=== PATIENT | male | born 1960 | race African-American/Black ===

== ENCOUNTER 2016-10-11 14:38 | Emergency (ER) | payer OTHER, MEDICAID ==
[~2016-10-11] VITALS: Ht 185.4 cm; Wt 158.8 kg
[~2016-10-11 14:38] MED LIST: ALBUAER3 IN; ALLO300T2 PO; AMIT50TA3; ASP81EC PO; ATOR10TA52 PO; CARV12.516 OR; LISI-646 PO; METF-312 PO; NIFE60TA53 PO; POTA10IN PO; PRILOSEC 20 MG; TAMS0.4C36 PO; TRAM50TA2 PO
[2016-10-11 16:13] LABS: Basophils # (auto) 0.1 uL; DEFINITIVE VIEW TRANSMISSION; Eosinophils # (auto) 0.3 uL; Eosinophils % (auto) 4.5 % (0.0-7.0); Hematocrit 39.7 % (41.0-53.0); Lymphocytes # (auto) 2.1 uL; Lymphocytes % (auto) 30.9 % (10.0-50.0); Mean Corpuscular Hemoglobin 25.8 pg (28.0-32.0); Mean Corpuscular Hgb Conc. 30.3 g/dL (32.0-36.0); Mean Corpuscular Volume 84.9 fL (80.0-100.0); Mean Platelet Volume 8.4 fL (7.4-10.4); Monocytes # (auto) 0.8 uL; Monocytes % (auto) 11.8 % (0.0-12.0); Neutrophils # (auto) 3.5 uL; Neutrophils % (auto) 51.8 % (37.0-80.0); Platelet Count (auto) 282 10^3/uL (140-450); Red Cell Distribution Width 16.2 % (11.6-16.0); White Blood Cell 6.8 10^3/uL (4.4-10.8)
[2016-10-11 16:34] LABS: Albumin 3.5 g/dL (3.4-5.0); BUN/Creatinine Ratio 14.4; Bilirubin, Total 0.2 mg/dL (0.2-1.0); Calcium 8.6 mg/dL (8.5-10.1); Potassium 3.6 mmol/L (3.5-5.1); Total Protein 8.1 g/dL (6.4-8.2)
[2016-10-11 16:45] LABS: B-Type Natriuretic Peptide 143.52 pg/mL (0-100); Temperature: 22.1 C (20.0-25.0)
[2016-10-12] MEDS ORDERED: HYDROmorphone HCL 2 MG/ML VL IV ONE (00:15)
[2016-10-12] MEDS ORDERED: FUROSEMIDE 40 MG/4 ML VIAL IV ONE (00:15)
[2016-10-12 06:06] VITALS: BP 123/55
== END 2016-10-12 18:42 | disposition home or self-care (01) ==
LOC: ER 14:41
DX: I13.0 Hypertensive heart and chronic kidney disease with heart failure and stage 1 through stage 4 chronic kidney disease, or unspecified chronic kidney disease (principal); I50.9 Heart failure, unspecified; R60.0 Localized edema; I20.9 Angina pectoris, unspecified; N18.9 Chronic kidney disease, unspecified; E11.9 Type 2 diabetes mellitus without complications; F17.210 Nicotine dependence, cigarettes, uncomplicated; E78.5 Hyperlipidemia, unspecified; I25.2 Old myocardial infarction; Z98.61 Coronary angioplasty status; Z90.89 Acquired absence of other organs; Z86.73 Personal history of transient ischemic attack (TIA), and cerebral infarction without residual deficits
CPT/HCPCS: 36415; 71010; 80053; 83880; 84484; 85025; 96374; 96375; 99285; J1170; J1940; 93005

== ENCOUNTER 2017-02-09 04:14 | Inpatient (IN) | payer OTHER, MEDICAID ==
[~2017-02-09] VITALS: Ht 185.4 cm; Wt 110.4 kg
[~2017-02-09 04:14] MED LIST changes: +ALB5IS NEB; -CARV12.516 OR; +CARV3.1213 PO; +DEXT1SYP6 PO; +IPRASOL39 IN; +LEVO500T3 PO; +LISI-275 PO; -LISI-646 PO; -TRAM50TA2 PO
[2017-02-09 04:36] LABS: Basophils # (auto) 0.1 uL; Basophils % (auto) 1.4 % (0.0-2.0); DEFINITIVE VIEW TRANSMISSION; Eosinophils # (auto) 0.3 uL; Eosinophils % (auto) 3.7 % (0.0-7.0); Hematocrit 34.6 % (41.0-53.0); Hemoglobin 10.9 g/dL (13.5-17.5); Lymphocytes # (auto) 2.5 uL; Lymphocytes % (auto) 30.8 % (10.0-50.0); Mean Corpuscular Hemoglobin 26.5 pg (28.0-32.0); Mean Corpuscular Hgb Conc. 31.6 g/dL (32.0-36.0); Mean Corpuscular Volume 83.9 fL (80.0-100.0); Mean Platelet Volume 8.9 fL (7.4-10.4); Monocytes # (auto) 0.8 uL; Monocytes % (auto) 10.1 % (0.0-12.0); Neutrophils # (auto) 4.3 uL; Platelet Count (auto) 297 10^3/uL (140-450); Red Cell Distribution Width 17.9 % (11.6-16.0)
[2017-02-09] MEDS ORDERED: methylPREDNISolone SOD SUCC 125 MG/2 ML VL IV ONE (05:15)
[2017-02-09] MEDS ORDERED: IPRATROPIUM BROM 0.5 MG/2.5ML INH SOL NEB ONE (05:15)
[2017-02-09] MEDS ORDERED: FUROSEMIDE 40 MG/4 ML VIAL IV ONE (05:15)
[2017-02-09] MEDS ORDERED: ALBUTEROL SULF 2.5 MG/0.5ML(0.5%) NEB SOLN NEB ONE (05:15)
[2017-02-09] MEDS ORDERED: ASPirin 81 mg TAB PO ONE (05:15)
[2017-02-09] MEDS ORDERED: IOHEXOL 350 MG/ML 100ML IJ ONE (05:16)
[2017-02-09 05:26] LABS: Albumin 2.8 g/dL (3.4-5.0); BUN/Creatinine Ratio 14.4; Calcium 8.3 mg/dL (8.5-10.1); Magnesium 1.7 mg/dL (1.6-2.6); Potassium 3.9 mmol/L (3.5-5.1)
[2017-02-09 05:34] LABS: Bilirubin, Total 0.2 mg/dL (0.2-1.0); Total Protein 7.4 g/dL (6.4-8.2)
[2017-02-09 05:36] LABS: B-Type Natriuretic Peptide 624.89 pg/mL (0-100); Temperature: 22.5 C (20.0-25.0)
[2017-02-09] MEDS ORDERED: ENOXAPARIN SOD 150 MG/1 ML SYRINGE SC ONE (05:45)
[2017-02-09 06:37] LABS: Urine Bilirubin Negative (Negative); Urine Blood Negative /uL (Negative); Urine Color Yellow (Yellow); Urine Glucose Normal (Normal); Urine Ketone Negative (Negative); Urine Nitrite Negative (Negative); Urine RBC <1 /hpf (0 - 3); Urine Urobilinogen Normal (Negative)
[2017-02-09] MEDS ORDERED: ONDANSETRON HCL 4 MG/2 ML VIAL IV ONE (06:45)
[2017-02-09] MEDS ORDERED: MORPHINE SULFATE 4 MG/ML SYRG IV ONE (06:45)
[2017-02-09] MEDS ORDERED: ZOLPIDEM TARTRATE 5 MG TAB PO PRN (09:30)
[2017-02-09] MEDS ORDERED: ACETAMINOPHEN 325 MG TAB PO PRN (09:30)
[2017-02-09] MEDS ORDERED: NITROGLYCERIN 0.4 MG SL TAB SL PRN ×2 (09:30)
[2017-02-09] MEDS ORDERED: LORazepam 0.5 MG TAB PO PRN (09:30)
[2017-02-09] MEDS ORDERED: MORPHINE SULF INJ 2 MG/ML SYRINGE 1ML IV PRN ×2 (09:30)
[2017-02-09] MEDS ORDERED: ONDANSETRON HCL 4 MG/2 ML VIAL IV PRN (09:30)
[2017-02-09] MEDS ORDERED: ALUM & MAG HYDROX-SIMETH LIQ(MAALOX) 30 ML PO PRN (09:30)
[2017-02-09] MEDS ORDERED: guaiFENesin-DEXTROMETHORPHAN 5ML SYR PO PRN (09:30)
[2017-02-09] MEDS ORDERED: DEXTROSE (50%) 50ML SYRG IV PRN (09:30)
[2017-02-09 09:41] VITALS: BP 136/73
[2017-02-09] MEDS ORDERED: LISINOPRIL 5 MG TAB PO SCH (10:00)
[2017-02-09] MEDS ORDERED: CARVEDILOL 3.125 MG TAB PO SCH ×2 (10:00→22:00)
[2017-02-09] MEDS ORDERED: NIFEdipine ER 30 MG TAB PO SCH (10:00)
[2017-02-09] MEDS ORDERED: HCTZ 25 MG TAB PO SCH (10:00)
[2017-02-09] MEDS: DOCUSATE SOD 100 MG CAP PO SCH (10:17)
[2017-02-09] MEDS: ALLOPURINOL 300 MG TAB PO SCH (10:18)
[2017-02-09] MEDS: POTASSIUM CHL 10 Meq TABLET PO SCH ×2 (10:18→22:04)
[2017-02-09] MEDS: CLOPIDOGREL BISULFATE 75 MG TAB PO SCH (10:18)
[2017-02-09] MEDS: InsuLIN REG 1unit/0.01ml Soln (100units/ml) SC SCH ×3 (11:30→23:47)
[2017-02-09] MEDS: ACCU-CHEK COMFORT CURVE STRIP VI SCH ×3 (11:30→23:47)
[2017-02-09] MEDS: IPRATROPIUM BROM 0.5 MG/2.5ML INH SOL NEB SCH ×2 (12:00→19:11)
[2017-02-09] MEDS: ALBUTEROL SULF 2.5 MG/0.5ML(0.5%) NEB SOLN NEB SCH ×2 (12:00→19:12)
[2017-02-09] MEDS ORDERED: FURO40TA4 PO (13:00)
[2017-02-09] MEDS: SODIUM CHLOR 0.9% PF (SALINE LOCK) 10ML VIAL IV SCH ×2 (14:00→22:05)
[2017-02-09 14:28] VITALS: BP 132/86
[2017-02-09] MEDS: FUROSEMIDE 40 MG/4 ML VIAL IV SCH (17:08)
[2017-02-09 17:30] VITALS: BP 106/77
[2017-02-09] MEDS ORDERED: TAMSULOSIN HYDROCHLORIDE 0.4 MG CAP PO SCH (18:00)
[2017-02-09 20:00] VITALS: BP 132/76
[2017-02-09 22:00] VITALS: BP 132/76
[2017-02-09] MEDS ORDERED: AMITRIPTYLINE HCL 25 MG TAB PO SCH (22:00)
[2017-02-09] MEDS ORDERED: ATORVASTATIN 20 MG TAB PO SCH (22:00)
[2017-02-09] MEDS ORDERED: HYDROcodone-ACET 7.5/325MG TAB PO PRN (22:45)
[2017-02-10] MEDS: IPRATROPIUM BROM 0.5 MG/2.5ML INH SOL NEB SCH ×3 (00:33→12:19)
[2017-02-10] MEDS: ALBUTEROL SULF 2.5 MG/0.5ML(0.5%) NEB SOLN NEB SCH ×3 (00:33→12:19)
[2017-02-10] MEDS ORDERED: ALUM & MAG HYDROX-SIMETH LIQ(MAALOX) 30 ML ONE (01:13)
[2017-02-10] MEDS ORDERED: ALUM & MAG HYDROX-SIMETH LIQ(MAALOX) 30 ML PO PRN (01:15)
[2017-02-10 05:30] VITALS: BP 105/70
[2017-02-10] MEDS: InsuLIN REG 1unit/0.01ml Soln (100units/ml) SC SCH ×2 (06:16→12:32)
[2017-02-10] MEDS: ACCU-CHEK COMFORT CURVE STRIP VI SCH ×2 (06:16→12:33)
[2017-02-10] MEDS: FUROSEMIDE 40 MG/4 ML VIAL IV SCH (06:18)
[2017-02-10] MEDS: SODIUM CHLOR 0.9% PF (SALINE LOCK) 10ML VIAL IV SCH (06:18)
[2017-02-10 06:33] LABS: Basophils # (auto) 0 uL; Basophils % (auto) 0.2 % (0.0-2.0); DEFINITIVE VIEW TRANSMISSION; Eosinophils # (auto) 0 uL; Hematocrit 32.7 % (41.0-53.0); Hemoglobin 10.2 g/dL (13.5-17.5); Lymphocytes # (auto) 1.6 uL; Lymphocytes % (auto) 14.1 % (10.0-50.0); Mean Corpuscular Hemoglobin 26.3 pg (28.0-32.0); Mean Corpuscular Hgb Conc. 31.3 g/dL (32.0-36.0); Mean Corpuscular Volume 84.1 fL (80.0-100.0); Mean Platelet Volume 8.9 fL (7.4-10.4); Monocytes % (auto) 9.2 % (0.0-12.0); Neutrophils # (auto) 8.6 uL; Neutrophils % (auto) 76.5 % (37.0-80.0); Platelet Count (auto) 298 10^3/uL (140-450); Red Cell Distribution Width 17.9 % (11.6-16.0); White Blood Cell 11.2 10^3/uL (4.4-10.8)
[2017-02-10 06:55] LABS: Albumin 3.1 g/dL (3.4-5.0); BUN/Creatinine Ratio 24.5; Bilirubin, Total 0.4 mg/dL (0.2-1.0); Calcium 8.6 mg/dL (8.5-10.1); Magnesium 2.2 mg/dL (1.6-2.6); Potassium 4.5 mmol/L (3.5-5.1); Total Protein 7.5 g/dL (6.4-8.2)
[2017-02-10 08:00] VITALS: BP 105/70
[2017-02-10 09:00] VITALS: BP 99/74
[2017-02-10] MEDS ORDERED: ASPirin-EC 81 mg tab PO SCH (10:00)
[2017-02-10] MEDS: DOCUSATE SOD 100 MG CAP PO SCH (10:14)
[2017-02-10] MEDS: ALLOPURINOL 300 MG TAB PO SCH (10:15)
[2017-02-10] MEDS: CLOPIDOGREL BISULFATE 75 MG TAB PO SCH (10:15)
[2017-02-10 13:00] VITALS: BP 94/66
[2017-02-10 13:09] VITALS: BP 94/66
[2017-02-10 13:59] LABS: Allen Test Yes; Base Excess 4.7 mmol/L (-2.0-2.0); Blood 02Sat 92.7 % (96-100); Blood COHb 0.1 % (0.5-1.5); Blood MetHb 0.3 % (0.0-1.5); HCO3 32.6 mmol/L (22-26.0); HHb 7.3 % (0.0-5.0); MODE NASAL CANNULA; O2Hb 92.3 % (94.0-97.0); PCO2 66.2 mmHg (35.0-45.0); PCO2(T) 66.2 mmHg (35.0-45.0); PO2 78.1 mmHg (80.0-100.0); PO2(T) 78.1 mmHg (80.0-100.0); Room 0220T; Sample Type Arterial
== END 2017-02-10 15:40 | disposition home health service (06) | DRG 291 ==
LOC: ER 04:14 → TELE 04:15 → TELE-E-ADS 12:21 → TELE-CENTR 14:31
PROVIDERS: ADMIT Internal Medicine; ATTEND Internal Medicine
DX: I13.0 Hypertensive heart and chronic kidney disease with heart failure and stage 1 through stage 4 chronic kidney disease, or unspecified chronic kidney disease (principal); I50.43 Acute on chronic combined systolic (congestive) and diastolic (congestive) heart failure; E43 Unspecified severe protein-calorie malnutrition; J98.11 Atelectasis; I24.9 Acute ischemic heart disease, unspecified; I42.9 Cardiomyopathy, unspecified; D63.8 Anemia in other chronic diseases classified elsewhere; I25.118 Atherosclerotic heart disease of native coronary artery with other forms of angina pectoris; J44.9 Chronic obstructive pulmonary disease, unspecified; E78.5 Hyperlipidemia, unspecified; E11.22 Type 2 diabetes mellitus with diabetic chronic kidney disease; E66.01 Morbid (severe) obesity due to excess calories; F17.210 Nicotine dependence, cigarettes, uncomplicated; I25.5 Ischemic cardiomyopathy; N40.0 Benign prostatic hyperplasia without lower urinary tract symptoms; R78.89 Finding of other specified substances, not normally found in blood; I35.0 Nonrheumatic aortic (valve) stenosis; E83.51 Hypocalcemia; M10.9 Gout, unspecified; M19.90 Unspecified osteoarthritis, unspecified site; I27.2 Other secondary pulmonary hypertension; I25.2 Old myocardial infarction; Z98.61 Coronary angioplasty status; Z83.3 Family history of diabetes mellitus; Z91.14 Patient's other noncompliance with medication regimen; Z68.32 Body mass index [BMI] 32.0-32.9, adult; Z90.89 Acquired absence of other organs
CPT/HCPCS: 36415; 36600; 71010; 71260; 80053; 80061; 81001; 82805; 82962; 83036; 83735; 83880; 84484; 85025; 85379; 93005; 93970; 94640; 96374; 96375; 99291; J1815; J2405

== ENCOUNTER 2018-02-16 00:16 | Inpatient (IN) | payer OTHER, MEDICAID ==
[~2018-02-16] VITALS: Ht 185.4 cm; Wt 145.0 kg
[~2018-02-16 00:16] MED LIST changes: +CAR3125T PO; -CARV3.1213 PO; -DEXT1SYP6 PO; +FURO40TA4 PO; -LEVO500T3 PO; -METF-312 PO
[2018-02-16 00:56] LABS: Basophils # (auto) 0.1 uL; Basophils % (auto) 0.8 % (0.0-2.0); Eosinophils # (auto) 0.3 uL; Eosinophils % (auto) 4.1 % (0.0-7.0); Hematocrit 39.1 % (41.0-53.0); Hemoglobin 12.8 g/dL (13.5-17.5); Lymphocytes # (auto) 2.8 uL; Lymphocytes % (auto) 35.9 % (10.0-50.0); Mean Corpuscular Hemoglobin 27.8 pg (28.0-32.0); Mean Corpuscular Hgb Conc. 32.7 g/dL (32.0-36.0); Mean Corpuscular Volume 84.9 fL (80.0-100.0); Monocytes # (auto) 0.9 uL; Monocytes % (auto) 10.9 % (0.0-12.0); Neutrophils # (auto) 3.8 uL; Neutrophils % (auto) 48.3 % (37.0-80.0); Nucleated Red Blood Cells % 0.1 %; Platelet Count (auto) 252 10^3/uL (140-450); Red Blood Cells 4.61 10^6/uL (4.5-5.90); Red Cell Distribution Width 15.9 % (11.8-14.3); White Blood Cell 7.9 10^3/uL (4.4-10.8)
[2018-02-16 01:08] LABS: Alanine Aminotransferase 24 U/L (16-61); Amylase 38 U/L (25-115); Anion Gap 9 (5-15); Aspartate Aminotransferase 16 U/L (15-37); BUN/Creatinine Ratio 11.2; Blood Urea Nitrogen 11 mg/dL (7-18); Calcium 8.9 mg/dL (8.5-10.1); Carbon Dioxide 31 mmol/L (21-32); Chloride 102 mmol/L (98-107); GFR African American 101 mL/min; GFR Non-African American 83 mL/min; Glucose 112 mg/dL (74-106); Lipase 78 U/L (73-393); Potassium 3.6 mmol/L (3.5-5.1); Sodium 142 mmol/L (136-145)
[2018-02-16 01:13] LABS: Alkaline Phosphatase 84 U/L (45-117); Bilirubin, Total 0.2 mg/dL (0.2-1.0); Total Protein 7.8 g/dL (6.4-8.2)
[2018-02-16] MEDS ORDERED: SODIUM CHLORIDE 0.9% 1,000 ML IV ONE (07:07)
[2018-02-16] MEDS ORDERED: METOCLOPRAMIDE HCL 5MG/ml INJ 2ml VIAL IV ONE (07:15)
[2018-02-16] MEDS ORDERED: NALBUPHINE HCL 10 MG/1ml INJECTION IV ONE (07:15)
[2018-02-16] MEDS ORDERED: NITROGLYCERIN 0.4 MG SL TAB SL PRN (11:00)
[2018-02-16] MEDS ORDERED: PANTOPRAZOLE 40 MG/10 ML VIAL IV ONE (11:00)
[2018-02-16] MEDS ORDERED: ALBUTEROL SULF 2.5 MG/0.5ML(0.5%) NEB SOLN NEB PRN (11:00)
[2018-02-16] MEDS ORDERED: DEXTROSE (50%) 50ML SYRG IV PRN (11:00)
[2018-02-16] MEDS ORDERED: LORazepam 0.5 MG TAB PO PRN (11:00)
[2018-02-16] MEDS ORDERED: TEMAZEPAM 15 MG CAP PO PRN (11:00)
[2018-02-16] MEDS: InsuLIN REG 1unit/0.01ml Soln (100units/ml) SC SCH ×2 (12:00→17:33)
[2018-02-16] MEDS: ACCU-CHEK COMFORT CURVE STRIP VI SCH ×2 (12:05→17:34)
[2018-02-16] MEDS: IPRATROPIUM BROM 0.5 MG/2.5ML INH SOL NEB SCH ×2 (12:05→20:09)
[2018-02-16] MEDS: ALBUTEROL SULF 2.5 MG/0.5ML(0.5%) NEB SOLN NEB SCH ×2 (12:05→20:10)
[2018-02-16 12:14] VITALS: BP 143/100
[2018-02-16] MEDS ORDERED: AMITRIPTYLINE HCL 25 MG TAB PO ONE (12:15)
[2018-02-16] MEDS ORDERED: CARVEDILOL 3.125 MG TAB PO ONE (12:15)
[2018-02-16] MEDS ORDERED: NIFEdipine ER 30 MG TAB PO ONE (12:15)
[2018-02-16] MEDS ORDERED: ALLOPURINOL 300 MG TAB PO ONE (12:15)
[2018-02-16] MEDS ORDERED: LISINOPRIL 5 MG TAB PO ONE (12:15)
[2018-02-16] MEDS ORDERED: cefTRIAXone 1GM/10ml IVPUSH 10 ML IV ONE (12:30)
[2018-02-16 12:44] LABS: Urine Bacteria NONE SEEN /hpf (None Seen); Urine Blood Negative /uL (Negative); Urine Mucus FEW (None Seen); Urine WBC 1 /hpf (0 - 3)
[2018-02-16] MEDS ORDERED: GASTROGRAFIN 120 ML SOL ONE (13:23)
[2018-02-16 15:00] VITALS: BP 107/70
[2018-02-16] MEDS: PROMETHAZINE HCL 25 MG/ML 1ML IV PRN ×2 (16:28→20:29)
[2018-02-16] MEDS: MORPHINE SULFATE 8mg/ml INJ SDV IV PRN ×2 (16:28→20:29)
[2018-02-16] MEDS: SODIUM CHLORIDE 0.9% 1,000 ML IV SCH (16:45)
[2018-02-16 16:50] VITALS: BP 107/70
[2018-02-16] MEDS: metroNIDAZOLE 500MG/100ML 100 ML IV SCH (17:31)
[2018-02-16] MEDS: MORPHINE SULF INJ 2 MG/ML SYRINGE 1ML IV PRN (20:28)
[2018-02-16 21:35] VITALS: BP 117/75
[2018-02-16] MEDS: CARVEDILOL 3.125 MG TAB PO SCH (21:49)
[2018-02-16] MEDS: ACETAMINOPHEN 500 MG TAB PO PRN (21:50)
[2018-02-16] MEDS: HYDROcodone-ACET 5/325MG TAB PO PRN (21:50)
[2018-02-16] MEDS ORDERED: ATORVASTATIN 20 MG TAB PO SCH (22:00)
[2018-02-16] MEDS ORDERED: TAMSULOSIN HYDROCHLORIDE 0.4 MG CAP PO SCH (22:00)
[2018-02-17] MEDS: metroNIDAZOLE 500MG/100ML 100 ML IV SCH ×3 (00:11→12:00)
[2018-02-17] MEDS: ACCU-CHEK COMFORT CURVE STRIP VI SCH ×4 (00:12→18:16)
[2018-02-17] MEDS: MORPHINE SULF INJ 2 MG/ML SYRINGE 1ML IV PRN (00:39)
[2018-02-17] MEDS: PROMETHAZINE HCL 25 MG/ML 1ML IV PRN ×2 (00:40→05:38)
[2018-02-17] MEDS: ALBUTEROL SULF 2.5 MG/0.5ML(0.5%) NEB SOLN NEB SCH ×3 (01:00→11:55)
[2018-02-17] MEDS: IPRATROPIUM BROM 0.5 MG/2.5ML INH SOL NEB SCH ×3 (01:00→11:55)
[2018-02-17] MEDS: SODIUM CHLORIDE 0.9% 1,000 ML IV SCH ×2 (02:45→12:45)
[2018-02-17] MEDS: HYDROcodone-ACET 5/325MG TAB PO PRN (03:20)
[2018-02-17] MEDS: ACETAMINOPHEN 500 MG TAB PO PRN (03:21)
[2018-02-17 05:11] VITALS: BP 113/74
[2018-02-17 05:12] VITALS: BP 99/72
[2018-02-17] MEDS: InsuLIN REG 1unit/0.01ml Soln (100units/ml) SC SCH ×4 (05:26→18:00)
[2018-02-17] MEDS: MORPHINE SULFATE 8mg/ml INJ SDV IV PRN (05:41)
[2018-02-17] MEDS: CARVEDILOL 3.125 MG TAB PO SCH (08:51)
[2018-02-17] MEDS ORDERED: cefTRIAXone 1GM/10ml IVPUSH 10 ML IV SCH (09:00)
[2018-02-17 09:15] VITALS: BP 105/72
[2018-02-17] MEDS ORDERED: AMITRIPTYLINE HCL 25 MG TAB PO SCH (10:00)
[2018-02-17] MEDS ORDERED: LISINOPRIL 5 MG TAB PO SCH (10:00)
[2018-02-17] MEDS ORDERED: PANTOPRAZOLE 40 MG TAB PO SCH (10:00)
[2018-02-17] MEDS ORDERED: NIFEdipine ER 30 MG TAB PO SCH (10:00)
[2018-02-17] MEDS ORDERED: ALLOPURINOL 300 MG TAB PO SCH (10:00)
[2018-02-17 13:03] VITALS: BP 95/58
[2018-02-17 15:43] VITALS: BP 105/72
[2018-02-17 17:38] VITALS: BP 109/87
== END 2018-02-17 18:45 | disposition home health service (06) | DRG 190 ==
LOC: ER 00:18 → TELE 00:19 → EAST 15:07
PROVIDERS: ADMIT Internal Medicine; ATTEND Internal Medicine
DX: J44.0 Chronic obstructive pulmonary disease with (acute) lower respiratory infection (principal); I50.23 Acute on chronic systolic (congestive) heart failure; K42.0 Umbilical hernia with obstruction, without gangrene; E44.1 Mild protein-calorie malnutrition; I42.9 Cardiomyopathy, unspecified; K52.9 Noninfective gastroenteritis and colitis, unspecified; E11.9 Type 2 diabetes mellitus without complications; E78.5 Hyperlipidemia, unspecified; I25.10 Atherosclerotic heart disease of native coronary artery without angina pectoris; D63.8 Anemia in other chronic diseases classified elsewhere; J44.9 Chronic obstructive pulmonary disease, unspecified; G89.29 Other chronic pain; M10.9 Gout, unspecified; M54.9 Dorsalgia, unspecified; J20.9 Acute bronchitis, unspecified; E66.01 Morbid (severe) obesity due to excess calories; F17.210 Nicotine dependence, cigarettes, uncomplicated; I11.0 Hypertensive heart disease with heart failure; I71.4 Abdominal aortic aneurysm, without rupture; K44.9 Diaphragmatic hernia without obstruction or gangrene; K59.00 Constipation, unspecified; K76.0 Fatty (change of) liver, not elsewhere classified; N40.0 Benign prostatic hyperplasia without lower urinary tract symptoms; Z82.3 Family history of stroke; Z82.49 Family history of ischemic heart disease and other diseases of the circulatory system; I25.2 Old myocardial infarction; Z83.3 Family history of diabetes mellitus; Z95.5 Presence of coronary angioplasty implant and graft; Z79.899 Other long term (current) drug therapy; Z79.82 Long term (current) use of aspirin
CPT/HCPCS: 36415; 71045; 74176; 74250; 80053; 81001; 82150; 82962; 83036; 83690; 83880; 84484; 85025; 85652; 86141; 93005; 94640; 96361; 96374; 96375; C9113; J3490

== ENCOUNTER 2018-03-14 10:03 | Emergency (ER) | payer OTHER, MEDICAID ==
[~2018-03-14] VITALS: Ht 185.4 cm; Wt 147.4 kg
[2018-03-14] MEDS ORDERED: cloNIDine HCL 0.1 MG TAB PO ONE (10:45)
[2018-03-14 11:09] LABS: INR 0.99 (0.9-1.15); Partial Thromboplastin Time 25.8 sec (23.78-33.04); Prothrombin Time 10.6 sec (9.27-12.13)
[2018-03-14 11:11] LABS: Albumin 3.2 g/dL (3.4-5.0); BUN/Creatinine Ratio 13.2; Bilirubin, Total 0.5 mg/dL (0.2-1.0); Calcium 8.3 mg/dL (8.5-10.1); Magnesium 2.3 mg/dL (1.6-2.6); Potassium 3.8 mmol/L (3.5-5.1); Total Protein 7.5 g/dL (6.4-8.2)
[2018-03-14 11:17] LABS: Basophils # (auto) 0.1 uL; Basophils % (auto) 0.7 % (0.0-2.0); Eosinophils # (auto) 0.4 uL; Hematocrit 39.4 % (41.0-53.0); Hemoglobin 12.6 g/dL (13.5-17.5); Lymphocytes % (auto) 22.6 % (10.0-50.0); Mean Corpuscular Hemoglobin 27.7 pg (28.0-32.0); Mean Corpuscular Hgb Conc. 32.1 g/dL (32.0-36.0); Mean Corpuscular Volume 86.4 fL (80.0-100.0); Monocytes # (auto) 0.8 uL; Monocytes % (auto) 9.2 % (0.0-12.0); Neutrophils # (auto) 5.5 uL; Neutrophils % (auto) 63.5 % (37.0-80.0); Nucleated Red Blood Cells % 0.2 %; Platelet Count (auto) 249 10^3/uL (140-450); Red Blood Cells 4.56 10^6/uL (4.5-5.90); White Blood Cell 8.7 10^3/uL (4.4-10.8)
[2018-03-14] MEDS ORDERED: FUROSEMIDE 40 MG/4 ML VIAL IV ONE (13:15)
[2018-03-14] MEDS ORDERED: FUROSEMIDE 40 MG TAB PO ONE (14:00)
[2018-03-14 14:38] VITALS: BP 169/98
== END 2018-03-14 14:42 | disposition home or self-care (01) ==
LOC: ER 10:03
DX: I13.0 Hypertensive heart and chronic kidney disease with heart failure and stage 1 through stage 4 chronic kidney disease, or unspecified chronic kidney disease (principal); I50.9 Heart failure, unspecified; N18.9 Chronic kidney disease, unspecified; J44.9 Chronic obstructive pulmonary disease, unspecified; E78.5 Hyperlipidemia, unspecified; I25.2 Old myocardial infarction; M10.9 Gout, unspecified; I25.10 Atherosclerotic heart disease of native coronary artery without angina pectoris; F17.210 Nicotine dependence, cigarettes, uncomplicated
CPT/HCPCS: 36415; 71046; 80053; 83735; 84484; 85025; 85610; 85730; 93005; 93970; 94761

== ENCOUNTER 2018-06-21 10:54 | Inpatient (IN) | payer OTHER, MEDICAID ==
[~2018-06-21] VITALS: Ht 182.9 cm; Wt 150.1 kg
[2018-06-21] MEDS ORDERED: FUROSEMIDE 40 MG/4 ML VIAL IV ONE (11:30)
[2018-06-21 11:48] LABS: Basophils # (auto) 0.1 uL; Basophils % (auto) 0.9 % (0.0-2.0); Eosinophils # (auto) 0.2 uL; Eosinophils % (auto) 3.7 % (0.0-7.0); Hematocrit 38.8 % (41.0-53.0); Hemoglobin 12.4 g/dL (13.5-17.5); Lymphocytes # (auto) 1.9 uL; Lymphocytes % (auto) 29.2 % (10.0-50.0); Mean Corpuscular Hemoglobin 27.2 pg (28.0-32.0); Mean Corpuscular Hgb Conc. 31.9 g/dL (32.0-36.0); Mean Corpuscular Volume 85.3 fL (80.0-100.0); Monocytes # (auto) 0.9 uL; Monocytes % (auto) 14.3 % (0.0-12.0); Neutrophils # (auto) 3.4 uL; Neutrophils % (auto) 51.9 % (37.0-80.0); Nucleated Red Blood Cells % 0.1 %; Platelet Count (auto) 240 10^3/uL (140-450); Red Blood Cells 4.55 10^6/uL (4.5-5.90); Red Cell Distribution Width 17.2 % (11.8-14.3); White Blood Cell 6.5 10^3/uL (4.4-10.8)
[2018-06-21 11:55] LABS: Urine Bacteria NONE SEEN /hpf (None Seen); Urine Blood Negative /uL (Negative); Urine Specific Gravity 1.019 (1.001-1.035); Urine WBC <1 /hpf (0 - 3)
[2018-06-21 12:05] LABS: Albumin 3.1 g/dL (3.4-5.0); BUN/Creatinine Ratio 18.7; Calcium 8.1 mg/dL (8.5-10.1); Magnesium 1.8 mg/dL (1.6-2.6); Potassium 4.1 mmol/L (3.5-5.1)
[2018-06-21 12:10] LABS: Bilirubin, Total 0.2 mg/dL (0.2-1.0); Total Protein 7.7 g/dL (6.4-8.2)
[2018-06-21] MEDS ORDERED: ONDANSETRON HCL 4 MG/2 ML VIAL IV PRN (14:15)
[2018-06-21] MEDS ORDERED: MORPHINE SULFATE 4 MG/ML SYR/VIAL IV PRN (14:15)
[2018-06-21] MEDS ORDERED: HYDROcodone-ACET 5/325MG TAB PO PRN (14:15)
[2018-06-21] MEDS ORDERED: NITROGLYCERIN 0.4 MG SL TAB SL PRN (14:15)
[2018-06-21] MEDS ORDERED: DEXTROSE (50%) 50ML SYRG IV PRN (14:15)
[2018-06-21 15:24] VITALS: BP 133/90
[2018-06-21 16:22] VITALS: BP 91/63
[2018-06-21] MEDS: InsuLIN REG 1unit/0.01ml Soln (100units/ml) SC SCH ×2 (17:00→21:59)
[2018-06-21 17:07] VITALS: BP 91/63
[2018-06-21] MEDS: TAMSULOSIN HYDROCHLORIDE 0.4 MG CAP PO SCH (17:30)
[2018-06-21] MEDS: ACCU-CHEK COMFORT CURVE STRIP VI SCH ×2 (17:30→21:59)
[2018-06-21] MEDS: IPRATROPIUM BROM 0.5 MG/2.5ML INH SOL NEB SCH (19:55)
[2018-06-21] MEDS: ALBUTEROL SULF 2.5 MG/0.5ML(0.5%) NEB SOLN NEB SCH (19:55)
[2018-06-21 21:51] VITALS: BP 101/73
[2018-06-21] MEDS: CARVEDILOL 3.125 MG TAB PO SCH (21:54)
[2018-06-21] MEDS: FAMOTIDINE 20 MG TAB PO SCH (21:55)
[2018-06-21] MEDS ORDERED: AMITRIPTYLINE HCL 25 MG TAB PO SCH (22:00)
[2018-06-21] MEDS ORDERED: ATORVASTATIN 20 MG TAB PO SCH (22:00)
[2018-06-22 04:41] VITALS: BP 98/56
[2018-06-22] MEDS: IPRATROPIUM BROM 0.5 MG/2.5ML INH SOL NEB SCH ×2 (05:58→12:44)
[2018-06-22] MEDS: ALBUTEROL SULF 2.5 MG/0.5ML(0.5%) NEB SOLN NEB SCH ×2 (05:58→12:44)
[2018-06-22] MEDS: InsuLIN REG 1unit/0.01ml Soln (100units/ml) SC SCH ×3 (06:24→17:00)
[2018-06-22] MEDS: ACCU-CHEK COMFORT CURVE STRIP VI SCH ×3 (06:24→17:00)
[2018-06-22 06:31] LABS: Calcium 8.6 mg/dL (8.5-10.1); Potassium 3.9 mmol/L (3.5-5.1)
[2018-06-22 08:04] VITALS: BP 108/71
[2018-06-22] MEDS ORDERED: LISINOPRIL 10 MG TAB PO SCH (10:00)
[2018-06-22] MEDS ORDERED: FUROSEMIDE 40 MG/4 ML VIAL IV SCH (10:00)
[2018-06-22] MEDS ORDERED: POTASSIUM CHL 20 Meq TABLET PO SCH (10:00)
[2018-06-22] MEDS ORDERED: ASPirin 81 mg TAB PO SCH (10:00)
[2018-06-22] MEDS ORDERED: ALLOPURINOL 300 MG TAB PO SCH (10:00)
[2018-06-22] MEDS: CARVEDILOL 3.125 MG TAB PO SCH (10:45)
[2018-06-22] MEDS: FAMOTIDINE 20 MG TAB PO SCH (10:46)
[2018-06-22 12:27] VITALS: BP 106/65
[2018-06-22] MEDS ORDERED: FURO40TA4 PO ×2 (15:09→15:17)
[2018-06-22] MEDS ORDERED: POTA10TA79 PO ×2 (15:09→15:17)
[2018-06-22] MEDS ORDERED: FURO40TA PO (15:17)
[2018-06-22 15:36] VITALS: BP 108/63
[2018-06-22 16:57] VITALS: BP 103/71
[2018-06-22 17:01] VITALS: BP 108/61
[2018-06-22] MEDS ORDERED: FUROSEMIDE 20 MG TAB PO SCH (18:00)
[2018-06-22] MEDS: TAMSULOSIN HYDROCHLORIDE 0.4 MG CAP PO SCH (18:00)
== END 2018-06-22 18:10 | disposition home or self-care (01) | DRG 291 ==
LOC: ER 10:54 → EDBD 10:54 → TELE 10:55 → TELE-WESTW 16:08
PROVIDERS: ADMIT Internal Medicine; ATTEND Internal Medicine
DX: I13.0 Hypertensive heart and chronic kidney disease with heart failure and stage 1 through stage 4 chronic kidney disease, or unspecified chronic kidney disease (principal); I50.43 Acute on chronic combined systolic (congestive) and diastolic (congestive) heart failure; J96.10 Chronic respiratory failure, unspecified whether with hypoxia or hypercapnia; Z68.41 Body mass index [BMI] 40.0-44.9, adult; E11.9 Type 2 diabetes mellitus without complications; M10.9 Gout, unspecified; E78.5 Hyperlipidemia, unspecified; J44.9 Chronic obstructive pulmonary disease, unspecified; E66.01 Morbid (severe) obesity due to excess calories; F17.210 Nicotine dependence, cigarettes, uncomplicated; I25.10 Atherosclerotic heart disease of native coronary artery without angina pectoris; N18.9 Chronic kidney disease, unspecified; E11.22 Type 2 diabetes mellitus with diabetic chronic kidney disease; Z95.5 Presence of coronary angioplasty implant and graft; Z79.899 Other long term (current) drug therapy; I25.2 Old myocardial infarction
CPT/HCPCS: 36415; 71045; 80048; 80053; 81001; 82962; 83735; 83880; 84484; 85025; 93306; 94640; 96374

== ENCOUNTER 2019-03-08 14:23 | Inpatient (IN) | payer OTHER, MEDICAID | END 2019-03-10 16:15 | disposition left against medical advice (07) | LOC: ER 14:23 → TELE 14:24 → TELE-WESTW 21:30 | DX: I20.8 Other forms of angina pectoris (principal); I50.43 Acute on chronic combined systolic (congestive) and diastolic (congestive) heart failure; I42.9 Cardiomyopathy, unspecified; R07.9 Chest pain, unspecified; E66.01 Morbid (severe) obesity due to excess calories; I11.0 Hypertensive heart disease with heart failure; E11.9 Type 2 diabetes mellitus without complications; F17.210 Nicotine dependence, cigarettes, uncomplicated; I50.9 Heart failure, unspecified; E78.5 Hyperlipidemia, unspecified; K21.9 Gastro-esophageal reflux disease without esophagitis; N40.0 Benign prostatic hyperplasia without lower urinary tract symptoms ==

== ENCOUNTER 2020-03-19 09:21 | Emergency (ER) | payer MEDICARE ==
[~2020-03-19] VITALS: Ht 185.4 cm; Wt 154.2 kg
[~2020-03-19 09:21] MED LIST changes: -ALB5IS NEB; -ALBUAER3 IN; +ALL300T PO; -ALLO300T2 PO; -AMIT50TA3; -ASP81EC PO; +ASPI81CH49 PO; -ATOR10TA52 PO; -CAR3125T PO; -FURO40TA4 PO; -IPRASOL39 IN; -LISI-275 PO; -NIFE60TA53 PO; +OMEP20TA PO; -POTA10IN PO; +POTA10TA51 PO; -PRILOSEC 20 MG; +TORS20TA20 PO
[2020-03-19 10:10] LABS: Basophils # (auto) 0.1 10 ^3/uL (0-0.2); Basophils % (auto) 0.9 % (0.0-2.0); Eosinophils # (auto) 0.3 10 ^3/uL (0-0.8); Eosinophils % (auto) 4.4 % (0.0-7.0); Hematocrit 41.5 % (41.0-53.0); Hemoglobin 13.5 g/dL (13.5-17.5); Lymphocytes # (auto) 2.5 10 ^3/uL (0.4-5.4); Lymphocytes % (auto) 40.5 % (10.0-50.0); Mean Corpuscular Hemoglobin 28.1 pg (28.0-32.0); Mean Corpuscular Hgb Conc. 32.5 g/dL (32.0-36.0); Mean Corpuscular Volume 86.6 fL (80.0-100.0); Monocytes # (auto) 0.5 10 ^3/uL (0-1.3); Monocytes % (auto) 8.1 % (0.0-12.0); Neutrophils # (auto) 2.8 10 ^3/uL (1.6-8.6); Neutrophils % (auto) 46.1 % (37.0-80.0); Nucleated Red Blood Cells % 0.1 %; Platelet Count (auto) 226 10^3/uL (140-450); Red Cell Distribution Width 15.6 % (11.8-14.3); White Blood Cell 6.2 10^3/uL (4.4-10.8)
[2020-03-19 10:18] LABS: Urine Bacteria NONE SEEN /hpf (None Seen); Urine Blood Negative /uL (Negative); Urine Specific Gravity 1.009 (1.001-1.035); Urine WBC <1 /hpf (0 - 3)
[2020-03-19 10:23] LABS: Albumin 3.3 g/dL (3.4-5.0); Calcium 8.6 mg/dL (8.5-10.1); Potassium 3.6 mmol/L (3.5-5.1)
[2020-03-19 10:26] LABS: Bilirubin, Total 0.2 mg/dL (0.2-1.0); Total Protein 7.8 g/dL (6.4-8.2)
[2020-03-19 15:53] VITALS: BP 128/82
== END 2020-03-19 15:57 | disposition home or self-care (01) ==
LOC: ER 09:21
DX: S39.011A Strain of muscle, fascia and tendon of abdomen, initial encounter (principal); K44.9 Diaphragmatic hernia without obstruction or gangrene; E44.1 Mild protein-calorie malnutrition; I11.0 Hypertensive heart disease with heart failure; I50.9 Heart failure, unspecified; I25.10 Atherosclerotic heart disease of native coronary artery without angina pectoris; J44.9 Chronic obstructive pulmonary disease, unspecified; M10.9 Gout, unspecified; E78.5 Hyperlipidemia, unspecified; I25.2 Old myocardial infarction; F17.210 Nicotine dependence, cigarettes, uncomplicated; X58.XXXA Exposure to other specified factors, initial encounter; Y93.89 Activity, other specified; Y92.89 Other specified places as the place of occurrence of the external cause; Y99.8 Other external cause status
CPT/HCPCS: 36415; 71046; 74176; 80053; 81001; 85025; 93005

== ENCOUNTER 2020-11-25 16:08 | Inpatient (IN) | payer MEDICARE ==
[~2020-11-25] VITALS: Ht 185.4 cm; Wt 158.3 kg
[2020-11-25] MEDS ORDERED: FUROSEMIDE 40 MG/4 ML VIAL IV ONE (16:30)
[2020-11-25 17:42] LABS: Basophils # (auto) 0.1 10 ^3/uL (0-0.2); Basophils % (auto) 0.7 % (0.0-2.0); Eosinophils # (auto) 0.2 10 ^3/uL (0-0.8); Eosinophils % (auto) 2.9 % (0.0-7.0); Hematocrit 38.4 % (41.0-53.0); Hemoglobin 12.4 g/dL (13.5-17.5); Lymphocytes # (auto) 2.1 10 ^3/uL (0.4-5.4); Lymphocytes % (auto) 24.3 % (10.0-50.0); Mean Corpuscular Hgb Conc. 32.3 g/dL (32.0-36.0); Mean Corpuscular Volume 89.8 fL (80.0-100.0); Monocytes # (auto) 0.8 10 ^3/uL (0-1.3); Monocytes % (auto) 8.9 % (0.0-12.0); Neutrophils # (auto) 5.4 10 ^3/uL (1.6-8.6); Neutrophils % (auto) 63.2 % (37.0-80.0); Nucleated Red Blood Cells % 0.1 %; Platelet Count (auto) 194 10^3/uL (140-450); Red Blood Cells 4.28 10^6/uL (4.5-5.90); Red Cell Distribution Width 14.8 % (11.8-14.3); White Blood Cell 8.5 10^3/uL (4.4-10.8)
[2020-11-25 18:00] LABS: Chloride 109 mmol/L (98-107); Potassium 4.2 mmol/L (3.5-5.1); Sodium 141 mmol/L (136-145)
[2020-11-25 18:06] LABS: Alanine Aminotransferase 29 U/L (16-61); Alkaline Phosphatase 73 U/L (45-117); Anion Gap 4 (5-15); Aspartate Aminotransferase 20 U/L (15-37); BUN/Creatinine Ratio 15.6; Bilirubin, Total 0.2 mg/dL (0.2-1.0); Blood Urea Nitrogen 12 mg/dL (7-18); Calcium 8.4 mg/dL (8.5-10.1); Carbon Dioxide 28 mmol/L (21-32); GFR African American 132 mL/min; GFR Non-African American 109 mL/min; Glucose 87 mg/dL (74-106); Total Protein 7.2 g/dL (6.4-8.2)
[2020-11-25] MEDS ORDERED: hydrALAZINE HCL 20 MG/ML VL IV PRN (18:45)
[2020-11-25] MEDS ORDERED: HYDROcodone-ACET 5/325MG TAB PO PRN (18:45)
[2020-11-25] MEDS ORDERED: NITROGLYCERIN 0.4 MG SL TAB SL PRN (18:45)
[2020-11-25] MEDS ORDERED: ACETAMINOPHEN 500 MG TAB PO PRN (18:45)
[2020-11-25] MEDS ORDERED: ONDANSETRON HCL 4 MG/2 ML VIAL IV PRN (18:45)
[2020-11-25] MEDS ORDERED: MORPHINE SULF INJ 2 MG/ML SYRINGE 1ML IV PRN ×2 (18:45)
[2020-11-25] MEDS: ATORVASTATIN 20 MG TAB PO SCH (21:51)
[2020-11-25] MEDS: DOCUSATE SOD 100 MG CAP PO SCH (21:51)
[2020-11-25] MEDS: TAMSULOSIN HYDROCHLORIDE 0.4 MG CAP PO SCH (21:51)
[2020-11-25] MEDS: CARVEDILOL 3.125 MG TAB PO SCH (21:52)
[2020-11-26] VITALS (7 sets, daily range): BP systolic 115–129; BP diastolic 69–89
[2020-11-26] MEDS ORDERED: ADENOSINE 99 MG in GIVE UN-DILUTED 0 ML IV STA (08:30)
[2020-11-26 09:24] LABS: BUN/Creatinine Ratio 15.5; Potassium 3.7 mmol/L (3.5-5.1)
[2020-11-26 09:32] LABS: Basophils # (auto) 0 10 ^3/uL (0-0.2); Basophils % (auto) 0.6 % (0.0-2.0); Eosinophils # (auto) 0.3 10 ^3/uL (0-0.8); Eosinophils % (auto) 4.5 % (0.0-7.0); Hematocrit 37.2 % (41.0-53.0); Hemoglobin 12.1 g/dL (13.5-17.5); Lymphocytes # (auto) 1.8 10 ^3/uL (0.4-5.4); Lymphocytes % (auto) 26.2 % (10.0-50.0); Mean Corpuscular Hemoglobin 29.2 pg (28.0-32.0); Mean Corpuscular Hgb Conc. 32.4 g/dL (32.0-36.0); Monocytes # (auto) 0.7 10 ^3/uL (0-1.3); Monocytes % (auto) 10.6 % (0.0-12.0); Neutrophils % (auto) 58.1 % (37.0-80.0); Nucleated Red Blood Cells % 0.3 %; Platelet Count (auto) 178 10^3/uL (140-450); Red Blood Cells 4.14 10^6/uL (4.5-5.90); White Blood Cell 6.8 10^3/uL (4.4-10.8)
[2020-11-26] MEDS ORDERED: FUROSEMIDE 20 MG/2 ML VIAL IV SCH ×2 (10:00→22:00)
[2020-11-26] MEDS: CARVEDILOL 3.125 MG TAB PO SCH ×2 (10:00→21:45)
[2020-11-26] MEDS: ASPirin-EC 81 mg tab PO SCH (11:51)
[2020-11-26] MEDS: DOCUSATE SOD 100 MG CAP PO SCH ×2 (11:51→21:43)
[2020-11-26] MEDS: FAMOTIDINE 20 MG TAB PO SCH (11:52)
[2020-11-26] MEDS: LISINOPRIL 10 MG TAB PO SCH (11:52)
[2020-11-26] MEDS: ALLOPURINOL 300 MG TAB PO SCH (11:52)
[2020-11-26] MEDS ORDERED: OPTISON 3ml Vial for INJ IV ONE (14:37)
[2020-11-26] MEDS: BUMETANIDE 2.5mg/10ml (0.25 mg/ml) INJ IV SCH (18:03)
[2020-11-26 21:04] LABS: INR 1.04 (0.9-1.15)
[2020-11-26] MEDS: TAMSULOSIN HYDROCHLORIDE 0.4 MG CAP PO SCH (21:43)
[2020-11-26] MEDS: POTASSIUM CHL 20 Meq TABLET PO SCH (21:44)
[2020-11-26] MEDS: ATORVASTATIN 20 MG TAB PO SCH (21:44)
[2020-11-27 05:00] VITALS: BP 109/66
[2020-11-27] MEDS: BUMETANIDE 2.5mg/10ml (0.25 mg/ml) INJ IV SCH ×2 (05:14→18:56)
[2020-11-27 07:56] LABS: BUN/Creatinine Ratio 14.5; Calcium 8.7 mg/dL (8.5-10.1); Potassium 3.7 mmol/L (3.5-5.1)
[2020-11-27 08:00] VITALS: BP 113/71
[2020-11-27 09:00] VITALS: BP 113/71
[2020-11-27] MEDS: DOCUSATE SOD 100 MG CAP PO SCH ×2 (09:51→21:51)
[2020-11-27] MEDS: FAMOTIDINE 20 MG TAB PO SCH (09:52)
[2020-11-27] MEDS: CARVEDILOL 3.125 MG TAB PO SCH ×2 (09:52→21:52)
[2020-11-27] MEDS: ASPirin-EC 81 mg tab PO SCH (09:52)
[2020-11-27] MEDS: POTASSIUM CHL 20 Meq TABLET PO SCH ×2 (09:52→21:51)
[2020-11-27] MEDS: LISINOPRIL 10 MG TAB PO SCH (09:53)
[2020-11-27] MEDS: ALLOPURINOL 300 MG TAB PO SCH (09:53)
[2020-11-27] MEDS ORDERED: HEPARIN SODIUM (PORCINE) 5000 UNITS/ML 1ML VIAL ONE (13:12)
[2020-11-27] MEDS ORDERED: VERAPAMIL 2.5MG/ML INJ 2ML VIAL IV ONE (13:12)
[2020-11-27] MEDS ORDERED: ANGIOMAX 250 MG VIAL IV ONE ×2 (13:12→13:58)
[2020-11-27] MEDS ORDERED: fentaNYL CITRATE 100 MCG/2 ML VL ONE (13:13)
[2020-11-27] MEDS ORDERED: MIDAZOLAM HCL 1MG/1ML-2 ML VIAL ONE (13:13)
[2020-11-27] MEDS ORDERED: LIDOCAINE 2%HCL (LOCAL ANESTH.) INJ 20ML MDV ONE (13:13)
[2020-11-27] MEDS ORDERED: IODIXANOL 320MG/ML 100ML BTL IV ONE (13:13)
[2020-11-27] MEDS ORDERED: SODIUM CHL 0.9% 50 ML ONE ×3 (13:13→13:58)
[2020-11-27] MEDS ORDERED: NITROGLYCERIN 5MG/ML 10ML VIAL IV ONE (13:17)
[2020-11-27] MEDS ORDERED: IOHEXOL 350 MG/ML 100ML IJ ONE (14:15)
[2020-11-27] MEDS ORDERED: TICAGRELOR 90 MG TAB ONE (14:23)
[2020-11-27] MEDS ORDERED: SODIUM CHL 0.9% 100 ML IV ONE (15:00)
[2020-11-27 17:00] VITALS: BP 126/84
[2020-11-27 20:00] VITALS: BP 134/79
[2020-11-27] MEDS: TAMSULOSIN HYDROCHLORIDE 0.4 MG CAP PO SCH (21:51)
[2020-11-27] MEDS: ATORVASTATIN 20 MG TAB PO SCH (21:51)
[2020-11-27] MEDS: TICAGRELOR 90 MG TAB PO SCH (21:55)
[2020-11-27 22:00] VITALS: BP 134/79
[2020-11-28 05:00] VITALS: BP 110/59
[2020-11-28] MEDS: BUMETANIDE 2.5mg/10ml (0.25 mg/ml) INJ IV SCH ×3 (06:47→19:06)
[2020-11-28 07:09] LABS: Basophils # (auto) 0 10 ^3/uL (0-0.2); Basophils % (auto) 0.5 % (0.0-2.0); Eosinophils # (auto) 0.3 10 ^3/uL (0-0.8); Eosinophils % (auto) 4.7 % (0.0-7.0); Hematocrit 40.3 % (41.0-53.0); Lymphocytes # (auto) 1.6 10 ^3/uL (0.4-5.4); Lymphocytes % (auto) 25.1 % (10.0-50.0); Mean Corpuscular Hgb Conc. 32.4 g/dL (32.0-36.0); Mean Corpuscular Volume 89.6 fL (80.0-100.0); Monocytes # (auto) 0.6 10 ^3/uL (0-1.3); Monocytes % (auto) 9.9 % (0.0-12.0); Neutrophils # (auto) 3.8 10 ^3/uL (1.6-8.6); Neutrophils % (auto) 59.8 % (37.0-80.0); Nucleated Red Blood Cells % 0.1 %; Platelet Count (auto) 193 10^3/uL (140-450); Red Cell Distribution Width 14.9 % (11.8-14.3); White Blood Cell 6.3 10^3/uL (4.4-10.8)
[2020-11-28 07:36] LABS: BUN/Creatinine Ratio 16.2
[2020-11-28 09:00] VITALS: BP 105/66
[2020-11-28] MEDS: DOCUSATE SOD 100 MG CAP PO SCH ×2 (09:11→21:59)
[2020-11-28] MEDS: TICAGRELOR 90 MG TAB PO SCH ×2 (09:11→22:14)
[2020-11-28] MEDS: LISINOPRIL 10 MG TAB PO SCH (09:12)
[2020-11-28] MEDS: POTASSIUM CHL 20 Meq TABLET PO SCH ×2 (09:12→22:00)
[2020-11-28] MEDS: FAMOTIDINE 20 MG TAB PO SCH (09:12)
[2020-11-28] MEDS: ALLOPURINOL 300 MG TAB PO SCH (09:13)
[2020-11-28] MEDS: ASPirin-EC 81 mg tab PO SCH (09:19)
[2020-11-28] MEDS ORDERED: BACLOFEN 10 MG TAB PO ONE (11:30)
[2020-11-28] MEDS ORDERED: POTASSIUM CHL 20 Meq TABLET PO ONE (11:30)
[2020-11-28] MEDS ORDERED: metOLazone 5 MG TAB PO ONE (11:30)
[2020-11-28 13:00] VITALS: BP 129/62
[2020-11-28 16:34] VITALS: BP 101/72
[2020-11-28 20:00] VITALS: BP 124/86
[2020-11-28 21:31] VITALS: BP 124/86
[2020-11-28] MEDS: TAMSULOSIN HYDROCHLORIDE 0.4 MG CAP PO SCH (21:59)
[2020-11-28] MEDS: ATORVASTATIN 20 MG TAB PO SCH (22:00)
[2020-11-29 04:39] LABS: Calcium 9.4 mg/dL (8.5-10.1); Magnesium 1.9 mg/dL (1.6-2.6); Potassium 3.6 mmol/L (3.5-5.1)
[2020-11-29 04:41] LABS: BUN/Creatinine Ratio 19.3
[2020-11-29 05:37] VITALS: BP 113/78
[2020-11-29] MEDS: BUMETANIDE 2.5mg/10ml (0.25 mg/ml) INJ IV SCH ×2 (06:41→18:38)
[2020-11-29 09:05] VITALS: BP_SYST 126; BP_SYST 141; BP_DIAS 71; BP_DIAS 94
[2020-11-29] MEDS: TICAGRELOR 90 MG TAB PO SCH ×2 (09:58→21:52)
[2020-11-29] MEDS: DOCUSATE SOD 100 MG CAP PO SCH ×2 (09:59→21:53)
[2020-11-29] MEDS: POTASSIUM CHL 20 Meq TABLET PO SCH ×2 (09:59→21:54)
[2020-11-29] MEDS: FAMOTIDINE 20 MG TAB PO SCH (09:59)
[2020-11-29] MEDS: ASPirin-EC 81 mg tab PO SCH (09:59)
[2020-11-29] MEDS: ALLOPURINOL 300 MG TAB PO SCH (09:59)
[2020-11-29] MEDS: LISINOPRIL 10 MG TAB PO SCH (10:00)
[2020-11-29] MEDS ORDERED: POTASSIUM CHL 20 Meq TABLET PO ONE (11:30)
[2020-11-29] MEDS ORDERED: MAGNESIUM SULFATE 1GM/100ML 100 ML IV ONE (11:30)
[2020-11-29 13:00] VITALS: BP 92/62
[2020-11-29 21:34] VITALS: BP 117/82
[2020-11-29] MEDS: CARVEDILOL 3.125 MG TAB PO SCH (21:53)
[2020-11-29] MEDS: TAMSULOSIN HYDROCHLORIDE 0.4 MG CAP PO SCH (21:53)
[2020-11-29] MEDS: ATORVASTATIN 20 MG TAB PO SCH (21:54)
[2020-11-30 05:30] VITALS: BP 97/65
[2020-11-30] MEDS: BUMETANIDE 2.5mg/10ml (0.25 mg/ml) INJ IV SCH (05:49)
[2020-11-30 05:50] LABS: Potassium 3.8 mmol/L (3.5-5.1)
[2020-11-30 05:58] LABS: Calcium 8.7 mg/dL (8.5-10.1); Magnesium 2.1 mg/dL (1.6-2.6)
[2020-11-30 08:31] VITALS: BP 122/80
[2020-11-30] MEDS: TICAGRELOR 90 MG TAB PO SCH (10:28)
[2020-11-30] MEDS: CARVEDILOL 3.125 MG TAB PO SCH (10:29)
[2020-11-30] MEDS: ALLOPURINOL 300 MG TAB PO SCH (10:29)
[2020-11-30] MEDS: LISINOPRIL 10 MG TAB PO SCH (10:29)
[2020-11-30] MEDS: DOCUSATE SOD 100 MG CAP PO SCH (10:30)
[2020-11-30] MEDS: POTASSIUM CHL 20 Meq TABLET PO SCH (10:30)
[2020-11-30] MEDS: ASPirin-EC 81 mg tab PO SCH (10:33)
[2020-11-30] MEDS: FAMOTIDINE 20 MG TAB PO SCH (10:35)
[2020-11-30 12:47] VITALS: BP 122/80
== END 2020-11-30 17:39 | disposition home or self-care (01) | DRG 250 ==
LOC: ER 16:08 → TELE 18:38 → TELE-WESTW 11-26 02:44
PROVIDERS: ADMIT Nurse Practitioner Acute Care; ATTEND Internal Medicine
PROC: 02703ZZ Dilation of Coronary Artery, One Artery, Percutaneous Approach (ICD-10-PCS; principal; 2020-11-27)
PROC: B211YZZ Fluoroscopy of Multiple Coronary Arteries using Other Contrast (ICD-10-PCS; 2020-11-27)
DX: I13.0 Hypertensive heart and chronic kidney disease with heart failure and stage 1 through stage 4 chronic kidney disease, or unspecified chronic kidney disease (principal); I50.43 Acute on chronic combined systolic (congestive) and diastolic (congestive) heart failure; J96.00 Acute respiratory failure, unspecified whether with hypoxia or hypercapnia; I47.2 Ventricular tachycardia; Z68.42 Body mass index [BMI] 45.0-49.9, adult; I25.110 Atherosclerotic heart disease of native coronary artery with unstable angina pectoris; J44.9 Chronic obstructive pulmonary disease, unspecified; M10.9 Gout, unspecified; N18.9 Chronic kidney disease, unspecified; Z20.822 Contact with and (suspected) exposure to COVID-19; R00.1 Bradycardia, unspecified; E66.01 Morbid (severe) obesity due to excess calories; E78.5 Hyperlipidemia, unspecified; F17.210 Nicotine dependence, cigarettes, uncomplicated; Z79.02 Long term (current) use of antithrombotics/antiplatelets; Z79.82 Long term (current) use of aspirin; Z79.899 Other long term (current) drug therapy; Z82.3 Family history of stroke; Z82.49 Family history of ischemic heart disease and other diseases of the circulatory system; Z91.14 Patient's other noncompliance with medication regimen; Z83.3 Family history of diabetes mellitus; Z95.5 Presence of coronary angioplasty implant and graft
CPT/HCPCS: 36415; 36600; 71045; 78452; 80048; 80053; 82805; 82962; 83735; 84484; 85025; 85610; 86141; 87426; 93005; 93017; 93306; 99152; 99153; 99291; C1887; G0378; J0153; J2250; J2405; J3490; Q9956; Q9967

== ENCOUNTER 2021-06-29 07:33 | Emergency (ER) | payer MEDICARE ==
[~2021-06-29] VITALS: Ht 185.4 cm; Wt 145.1 kg
[~2021-06-29 07:33] MED LIST changes: -ASPI81CH49 PO; -OMEP20TA PO; -POTA10TA51 PO; -TORS20TA20 PO
[2021-06-29] MEDS ORDERED: KETOROLAC TROMETH 60MG/2ML VIAL IM ONE (07:45)
[2021-06-29] MEDS ORDERED: KETOROLAC TROMETH 60MG/2ML VIAL ONE (07:49)
[2021-06-29 08:18] VITALS: BP 150/99
== END 2021-06-29 08:19 | disposition home or self-care (01) ==
LOC: ER 07:33
DX: S02.5XXA Fracture of tooth (traumatic), initial encounter for closed fracture (principal); K04.7 Periapical abscess without sinus; I11.0 Hypertensive heart disease with heart failure; I50.9 Heart failure, unspecified; I25.10 Atherosclerotic heart disease of native coronary artery without angina pectoris; J44.9 Chronic obstructive pulmonary disease, unspecified; E78.5 Hyperlipidemia, unspecified; I25.2 Old myocardial infarction; F17.210 Nicotine dependence, cigarettes, uncomplicated; Z79.899 Other long term (current) drug therapy; Z90.89 Acquired absence of other organs; Z98.890 Other specified postprocedural states; X58.XXXA Exposure to other specified factors, initial encounter; Y93.89 Activity, other specified; Y92.89 Other specified places as the place of occurrence of the external cause; Y99.8 Other external cause status
CPT/HCPCS: 96372; 99283; J1885

== ENCOUNTER 2021-12-21 22:20 | Inpatient (IN) | payer OTHER, MEDICARE ==
[~2021-12-21] VITALS: Ht 185.4 cm; Wt 141.3 kg
[2021-12-21 23:45] LABS: Basophils # (auto) 0.1 10 ^3/uL (0-0.2); Basophils % (auto) 0.9 % (0.0-2.0); Eosinophils # (auto) 0.3 10 ^3/uL (0-0.8); Eosinophils % (auto) 3.5 % (0.0-7.0); Hematocrit 43.4 % (41.0-53.0); Hemoglobin 14.5 g/dL (13.5-17.5); Lymphocytes # (auto) 2.5 10 ^3/uL (0.4-5.4); Lymphocytes % (auto) 32.3 % (10.0-50.0); Mean Corpuscular Hemoglobin 29.6 pg (28.0-32.0); Mean Corpuscular Hgb Conc. 33.4 g/dL (32.0-36.0); Mean Corpuscular Volume 88.6 fL (80.0-100.0); Monocytes # (auto) 0.8 10 ^3/uL (0-1.3); Monocytes % (auto) 10.3 % (0.0-12.0); Neutrophils # (auto) 4.1 10 ^3/uL (1.6-8.6); Nucleated Red Blood Cells % 0.2 %; Red Cell Distribution Width 14.2 % (11.8-14.3); White Blood Cell 7.7 10^3/uL (4.4-10.8)
[2021-12-22 00:07] LABS: Calcium 9.3 mg/dL (8.5-10.1); Potassium 3.6 mmol/L (3.5-5.1)
[2021-12-22 00:10] LABS: Albumin 3.7 g/dL (3.4-5.0); BUN/Creatinine Ratio 16.7; Magnesium 1.8 mg/dL (1.6-2.6)
[2021-12-22 00:12] LABS: Bilirubin, Total 0.3 mg/dL (0.2-1.0); Total Protein 8.3 g/dL (6.4-8.2)
[2021-12-22] MEDS ORDERED: NITROGLYCERIN 0.4 MG SL TAB SL ONE (03:15)
[2021-12-22] MEDS ORDERED: ASPirin 81 mg TAB PO ONE (03:15)
[2021-12-22] MEDS ORDERED: MORPHINE SULFATE INJECTION 2 MG/ML SYRG IV ONE (03:45)
[2021-12-22] MEDS ORDERED: ONDANSETRON HCL 4 MG/2 ML VIAL IV PRN (04:00)
[2021-12-22] MEDS ORDERED: NITROGLYCERIN 0.4 MG SL TAB SL PRN (04:00)
[2021-12-22] MEDS ORDERED: MORPHINE SULFATE 4 MG/ML SYR/VIAL IV PRN (04:00)
[2021-12-22] MEDS ORDERED: MORPHINE SULFATE INJECTION 2 MG/ML SYRG IV PRN (04:00)
[2021-12-22] MEDS ORDERED: hydrALAZINE HCL 20 MG/ML VL IV PRN (04:15)
[2021-12-22 09:00] VITALS: BP 91/70
[2021-12-22] MEDS ORDERED: FUROSEMIDE 40 MG/4 ML VIAL IV SCH (10:00)
[2021-12-22] MEDS ORDERED: ADENOSINE 120 MG in GIVE UN-DILUTED 0 ML IV ONE (11:00)
[2021-12-22 11:12] VITALS: BP 102/74
[2021-12-22] MEDS: HEPARIN SODIUM (PORCINE) 5000 UNITS/ML 1ML VIAL SC SCH ×2 (12:02→21:47)
[2021-12-22] MEDS: NITROGLYCERIN 0.4MG/HR TOPICAL PATCH TD SCH (12:04)
[2021-12-22 13:00] VITALS: BP 140/87
[2021-12-22 17:00] VITALS: BP 133/79
[2021-12-22] MEDS: TAMSULOSIN HYDROCHLORIDE 0.4 MG CAP PO SCH (18:04)
[2021-12-22] MEDS: MORPHINE SULFATE INJECTION 2 MG/ML SYRG IV PRN (20:37)
[2021-12-22] MEDS: ATORVASTATIN 20 MG TAB PO SCH (21:37)
[2021-12-22 22:00] VITALS: BP 118/86
[2021-12-23] MEDS: MORPHINE SULFATE INJECTION 2 MG/ML SYRG IV PRN ×2 (04:39→21:20)
[2021-12-23 05:00] VITALS: BP 115/66
[2021-12-23 06:18] LABS: Basophils # (auto) 0 10 ^3/uL (0-0.2); Basophils % (auto) 0.3 % (0.0-2.0); Eosinophils # (auto) 0.3 10 ^3/uL (0-0.8); Eosinophils % (auto) 4.6 % (0.0-7.0); Hematocrit 38.2 % (41.0-53.0); Hemoglobin 12.9 g/dL (13.5-17.5); Lymphocytes # (auto) 2.6 10 ^3/uL (0.4-5.4); Lymphocytes % (auto) 45.3 % (10.0-50.0); Mean Corpuscular Hemoglobin 29.8 pg (28.0-32.0); Mean Corpuscular Hgb Conc. 33.7 g/dL (32.0-36.0); Mean Corpuscular Volume 88.5 fL (80.0-100.0); Monocytes # (auto) 0.7 10 ^3/uL (0-1.3); Monocytes % (auto) 12.6 % (0.0-12.0); Neutrophils # (auto) 2.1 10 ^3/uL (1.6-8.6); Neutrophils % (auto) 37.2 % (37.0-80.0); Nucleated Red Blood Cells % 0.1 %; Red Blood Cells 4.32 10^6/uL (4.5-5.90); White Blood Cell 5.7 10^3/uL (4.4-10.8)
[2021-12-23 06:49] LABS: Potassium 3.8 mmol/L (3.5-5.1)
[2021-12-23 07:05] LABS: Albumin 2.9 g/dL (3.4-5.0); BUN/Creatinine Ratio 18.9; Calcium 8.5 mg/dL (8.5-10.1)
[2021-12-23 07:07] LABS: Bilirubin, Total 0.4 mg/dL (0.2-1.0); Total Protein 6.8 g/dL (6.4-8.2)
[2021-12-23 08:38] VITALS: BP 101/70
[2021-12-23] MEDS ORDERED: metOLazone 5 MG TAB PO ONE (09:45)
[2021-12-23] MEDS ORDERED: FUROSEMIDE 40 MG TAB PO SCH (10:00)
[2021-12-23] MEDS: HEPARIN SODIUM (PORCINE) 5000 UNITS/ML 1ML VIAL SC SCH ×2 (10:03→22:06)
[2021-12-23] MEDS: ASPirin 81 mg TAB PO SCH (10:09)
[2021-12-23] MEDS: CARVEDILOL 3.125 MG TAB PO SCH ×2 (10:09→22:00)
[2021-12-23] MEDS: SACUBITRIL-VALSARTAN 24mg/26mg TAB PO SCH ×2 (10:09→22:00)
[2021-12-23] MEDS: NITROGLYCERIN 0.4MG/HR TOPICAL PATCH TD SCH (10:10)
[2021-12-23] MEDS: POTASSIUM CHL 20 Meq TABLET PO SCH (10:10)
[2021-12-23] MEDS ORDERED: HYDROcodone-ACET 5/325MG TAB PO PRN (10:45)
[2021-12-23 12:40] VITALS: BP 93/65
[2021-12-23 16:36] VITALS: BP 98/71
[2021-12-23] MEDS: TAMSULOSIN HYDROCHLORIDE 0.4 MG CAP PO SCH (17:59)
[2021-12-23] MEDS: BUMETANIDE 2.5mg/10ml (0.25 mg/ml) INJ IV SCH (17:59)
[2021-12-23] MEDS: ATORVASTATIN 20 MG TAB PO SCH (21:58)
[2021-12-23 22:00] VITALS: BP 100/62
[2021-12-24 05:09] VITALS: BP 102/70
[2021-12-24] MEDS: BUMETANIDE 2.5mg/10ml (0.25 mg/ml) INJ IV SCH (05:17)
[2021-12-24 09:00] VITALS: BP 132/102
[2021-12-24 09:59] VITALS: BP 101/55
[2021-12-24] MEDS: SACUBITRIL-VALSARTAN 24mg/26mg TAB PO SCH (10:00)
[2021-12-24] MEDS: CARVEDILOL 3.125 MG TAB PO SCH (10:00)
[2021-12-24] MEDS ORDERED: POTA1TAB61 PO (10:30)
[2021-12-24] MEDS ORDERED: CAR3125T PO (10:30)
[2021-12-24] MEDS ORDERED: SACU1TAB PO (10:30)
[2021-12-24] MEDS ORDERED: BUME2TAB5 PO (10:30)
[2021-12-24] MEDS ORDERED: ASPI1CHW15 PO (10:30)
[2021-12-24] MEDS ORDERED: ATOR20TA50 PO (10:31)
[2021-12-24] MEDS: ASPirin 81 mg TAB PO SCH (10:39)
[2021-12-24] MEDS: POTASSIUM CHL 20 Meq TABLET PO SCH (10:39)
[2021-12-24] MEDS: HEPARIN SODIUM (PORCINE) 5000 UNITS/ML 1ML VIAL SC SCH (10:41)
[2021-12-24 12:39] VITALS: BP 100/66
== END 2021-12-24 15:13 | disposition home or self-care (01) | DRG 291 ==
LOC: ER 22:20 → TELE 12-22 03:57 → TELE-CENTR 12-22 08:47
PROVIDERS: ADMIT Internal Medicine; ATTEND Internal Medicine
DX: I13.0 Hypertensive heart and chronic kidney disease with heart failure and stage 1 through stage 4 chronic kidney disease, or unspecified chronic kidney disease (principal); I50.43 Acute on chronic combined systolic (congestive) and diastolic (congestive) heart failure; Z68.41 Body mass index [BMI] 40.0-44.9, adult; N18.2 Chronic kidney disease, stage 2 (mild); J44.9 Chronic obstructive pulmonary disease, unspecified; E11.22 Type 2 diabetes mellitus with diabetic chronic kidney disease; E66.01 Morbid (severe) obesity due to excess calories; E78.5 Hyperlipidemia, unspecified; F17.210 Nicotine dependence, cigarettes, uncomplicated; I25.119 Atherosclerotic heart disease of native coronary artery with unspecified angina pectoris; M10.9 Gout, unspecified; Z20.822 Contact with and (suspected) exposure to COVID-19; N40.0 Benign prostatic hyperplasia without lower urinary tract symptoms; Z79.82 Long term (current) use of aspirin; Z79.899 Other long term (current) drug therapy; I25.2 Old myocardial infarction; Z82.3 Family history of stroke; Z82.49 Family history of ischemic heart disease and other diseases of the circulatory system; Z83.3 Family history of diabetes mellitus; Z95.5 Presence of coronary angioplasty implant and graft
CPT/HCPCS: 36415; 71045; 78452; 80053; 83735; 83880; 84443; 84484; 85025; 85379; 93005; 93017; 93306; 96374; G0378; J0153

== ENCOUNTER 2022-01-22 21:34 | Inpatient (IN) | payer OTHER, MEDICARE ==
[~2022-01-22] VITALS: Ht 185.4 cm; Wt 148.2 kg
[~2022-01-22 21:34] MED LIST changes: +ASPI1CHW15 PO; +ATOR20TA50 PO; +BUME2TAB5 PO; +CAR3125T PO; +POTA1TAB61 PO; +SACU1TAB PO
[2022-01-22 22:20] LABS: Basophils # (auto) 0 10 ^3/uL (0-0.2); Basophils % (auto) 0.7 % (0.0-2.0); Eosinophils # (auto) 0.2 10 ^3/uL (0-0.8); Eosinophils % (auto) 3.5 % (0.0-7.0); Hematocrit 41.2 % (41.0-53.0); Hemoglobin 13.7 g/dL (13.5-17.5); Lymphocytes # (auto) 2.9 10 ^3/uL (0.4-5.4); Lymphocytes % (auto) 44.9 % (10.0-50.0); Mean Corpuscular Hemoglobin 29.4 pg (28.0-32.0); Mean Corpuscular Hgb Conc. 33.3 g/dL (32.0-36.0); Mean Corpuscular Volume 88.5 fL (80.0-100.0); Monocytes # (auto) 0.7 10 ^3/uL (0-1.3); Monocytes % (auto) 10.1 % (0.0-12.0); Neutrophils # (auto) 2.7 10 ^3/uL (1.6-8.6); Neutrophils % (auto) 40.8 % (37.0-80.0); Nucleated Red Blood Cells % 0.1 %; Red Blood Cells 4.65 10^6/uL (4.5-5.90); Red Cell Distribution Width 14.4 % (11.8-14.3); White Blood Cell 6.5 10^3/uL (4.4-10.8)
[2022-01-22 22:32] LABS: INR 1.07 (0.9-1.15); Partial Thromboplastin Time 24.5 sec (23.6-33.0)
[2022-01-22 23:24] LABS: Albumin 3.2 g/dL (3.4-5.0); Calcium 8.6 mg/dL (8.5-10.1); Potassium 3.6 mmol/L (3.5-5.1)
[2022-01-22 23:27] LABS: BUN/Creatinine Ratio 15.4; Bilirubin, Total 0.2 mg/dL (0.2-1.0); Total Protein 7.4 g/dL (6.4-8.2)
[2022-01-23] VITALS (8 sets, daily range): BP systolic 106–143; BP diastolic 65–95
[2022-01-23] MEDS ORDERED: HYDROcodone-ACET 5/325MG TAB PO PRN (01:15)
[2022-01-23] MEDS ORDERED: ONDANSETRON HCL 4 MG/2 ML VIAL IV PRN (01:15)
[2022-01-23] MEDS ORDERED: ONDANSETRON HCL 4 MG/2 ML VIAL IV ONE (01:15)
[2022-01-23] MEDS ORDERED: DOCUSATE SOD 100 MG CAP PO PRN (01:15)
[2022-01-23] MEDS ORDERED: HYDROmorphone HCL 2 MG/ML VL/or syr IV ONE (01:15)
[2022-01-23] MEDS ORDERED: ACETAMINOPHEN 325 MG TAB PO PRN (01:15)
[2022-01-23] MEDS ORDERED: MORPHINE SULFATE INJECTION 2 MG/ML SYRG IV PRN (03:15)
[2022-01-23] MEDS ORDERED: NITROGLYCERIN 0.4 MG SL TAB SL PRN (03:15)
[2022-01-23 03:53] LABS: Urine Bacteria NONE SEEN /hpf (None Seen); Urine Blood Negative /uL (Negative); Urine Specific Gravity 1.029 (1.001-1.035); Urine WBC 1 /hpf (0 - 3)
[2022-01-23 06:12] LABS: Basophils # (auto) 0 10 ^3/uL (0-0.2); Basophils % (auto) 0.7 % (0.0-2.0); Eosinophils # (auto) 0.2 10 ^3/uL (0-0.8); Eosinophils % (auto) 3.9 % (0.0-7.0); Hematocrit 40.1 % (41.0-53.0); Hemoglobin 13.3 g/dL (13.5-17.5); Lymphocytes # (auto) 2.7 10 ^3/uL (0.4-5.4); Lymphocytes % (auto) 46.2 % (10.0-50.0); Mean Corpuscular Hemoglobin 29.4 pg (28.0-32.0); Mean Corpuscular Hgb Conc. 33.2 g/dL (32.0-36.0); Mean Corpuscular Volume 88.4 fL (80.0-100.0); Monocytes # (auto) 0.8 10 ^3/uL (0-1.3); Monocytes % (auto) 13.3 % (0.0-12.0); Neutrophils # (auto) 2.1 10 ^3/uL (1.6-8.6); Neutrophils % (auto) 35.9 % (37.0-80.0); Red Blood Cells 4.53 10^6/uL (4.5-5.90); Red Cell Distribution Width 14.5 % (11.8-14.3); White Blood Cell 5.9 10^3/uL (4.4-10.8)
[2022-01-23 06:28] LABS: Albumin 3.1 g/dL (3.4-5.0); Calcium 8.5 mg/dL (8.5-10.1); Potassium 4.1 mmol/L (3.5-5.1)
[2022-01-23 06:30] LABS: BUN/Creatinine Ratio 14.6
[2022-01-23] MEDS: SODIUM CHLOR 0.9% PF (SALINE LOCK) 10ML VIAL/SYR IV SCH ×3 (06:30→21:45)
[2022-01-23 06:59] LABS: Bilirubin, Total 0.3 mg/dL (0.2-1.0); Total Protein 7.3 g/dL (6.4-8.2)
[2022-01-23] MEDS: CARVEDILOL 3.125 MG TAB PO SCH ×2 (08:23→21:45)
[2022-01-23] MEDS: ASPirin 81 mg TAB PO SCH (08:23)
[2022-01-23] MEDS: MORPHINE SULFATE INJECTION 2 MG/ML SYRG IV PRN ×3 (08:29→21:53)
[2022-01-23] MEDS: FUROSEMIDE 40 MG/4 ML VIAL IV SCH (10:44)
[2022-01-23] MEDS ORDERED: LIDOCAINE 2%HCL (LOCAL ANESTH.) INJ 10ml MDV ONE (12:28)
[2022-01-23] MEDS ORDERED: IODIXANOL 320MG/ML 100ML BTL IV ONE ×3 (12:28→13:14)
[2022-01-23] MEDS ORDERED: ANGIOMAX 250 MG VIAL IV ONE (12:32)
[2022-01-23] MEDS ORDERED: MIDAZOLAM HCL 2MG/2ML 2ml VIAL (1mg/ml) ONE (12:33)
[2022-01-23] MEDS ORDERED: SODIUM CHL 0.9% 50 ML ONE (12:33)
[2022-01-23] MEDS ORDERED: VERAPAMIL 2.5MG/ML INJ 2ML VIAL IV ONE (12:33)
[2022-01-23] MEDS ORDERED: fentaNYL CITRATE 100 MCG/2 ML VL ONE (12:33)
[2022-01-23] MEDS ORDERED: HEPARIN SODIUM (PORCINE) 5000 UNITS/ML 1ML VIAL ONE (12:33)
[2022-01-23] MEDS ORDERED: CLOPIDOGREL 300 MG TAB ONE (14:01)
[2022-01-23] MEDS: TAMSULOSIN HYDROCHLORIDE 0.4 MG CAP PO SCH (18:13)
[2022-01-23] MEDS: ATORVASTATIN 20 MG TAB PO SCH (21:45)
[2022-01-24 05:00] VITALS: BP 133/81
[2022-01-24 05:51] LABS: Basophils # (auto) 0 10 ^3/uL (0-0.2); Basophils % (auto) 0.9 % (0.0-2.0); Eosinophils # (auto) 0.2 10 ^3/uL (0-0.8); Eosinophils % (auto) 4.3 % (0.0-7.0); Hematocrit 37.4 % (41.0-53.0); Hemoglobin 12.4 g/dL (13.5-17.5); Lymphocytes # (auto) 2.2 10 ^3/uL (0.4-5.4); Lymphocytes % (auto) 41.9 % (10.0-50.0); Mean Corpuscular Hemoglobin 29.4 pg (28.0-32.0); Mean Corpuscular Hgb Conc. 33.2 g/dL (32.0-36.0); Mean Corpuscular Volume 88.7 fL (80.0-100.0); Monocytes # (auto) 0.6 10 ^3/uL (0-1.3); Monocytes % (auto) 11.9 % (0.0-12.0); Neutrophils # (auto) 2.1 10 ^3/uL (1.6-8.6); Nucleated Red Blood Cells % 0.1 %; Red Blood Cells 4.22 10^6/uL (4.5-5.90); Red Cell Distribution Width 13.9 % (11.8-14.3); White Blood Cell 5.2 10^3/uL (4.4-10.8)
[2022-01-24 06:05] LABS: Potassium 3.7 mmol/L (3.5-5.1)
[2022-01-24] MEDS: SODIUM CHLOR 0.9% PF (SALINE LOCK) 10ML VIAL/SYR IV SCH ×3 (06:10→21:21)
[2022-01-24] MEDS: MORPHINE SULFATE INJECTION 2 MG/ML SYRG IV PRN ×2 (06:12→21:22)
[2022-01-24 06:17] LABS: Albumin 2.8 g/dL (3.4-5.0); BUN/Creatinine Ratio 18.9; Bilirubin, Total 0.2 mg/dL (0.2-1.0); Calcium 8.2 mg/dL (8.5-10.1); Total Protein 6.8 g/dL (6.4-8.2)
[2022-01-24 09:00] VITALS: BP 100/55
[2022-01-24] MEDS: ASPirin 81 mg TAB PO SCH (09:53)
[2022-01-24] MEDS: CLOPIDOGREL BISULFATE 75 MG TAB PO SCH (09:53)
[2022-01-24] MEDS: FUROSEMIDE 40 MG/4 ML VIAL IV SCH (09:53)
[2022-01-24] MEDS: CARVEDILOL 3.125 MG TAB PO SCH ×2 (10:00→21:23)
[2022-01-24 13:00] VITALS: BP 99/52
[2022-01-24] MEDS ORDERED: DAPAGLIFLOZIN 5 MG TAB PO ONE (13:30)
[2022-01-24 17:00] VITALS: BP 100/57
[2022-01-24] MEDS: TAMSULOSIN HYDROCHLORIDE 0.4 MG CAP PO SCH (18:24)
[2022-01-24] MEDS: ATORVASTATIN 20 MG TAB PO SCH (21:21)
[2022-01-24 22:00] VITALS: BP 121/85
[2022-01-25] MEDS: MORPHINE SULFATE INJECTION 2 MG/ML SYRG IV PRN ×2 (04:22→10:17)
[2022-01-25 05:00] VITALS: BP 128/91
[2022-01-25] MEDS: SODIUM CHLOR 0.9% PF (SALINE LOCK) 10ML VIAL/SYR IV SCH ×2 (06:14→14:00)
[2022-01-25 09:00] VITALS: BP 103/67
[2022-01-25] MEDS: CARVEDILOL 3.125 MG TAB PO SCH (09:44)
[2022-01-25] MEDS: FUROSEMIDE 40 MG/4 ML VIAL IV SCH (09:49)
[2022-01-25] MEDS: ASPirin 81 mg TAB PO SCH (09:49)
[2022-01-25] MEDS: CLOPIDOGREL BISULFATE 75 MG TAB PO SCH (09:49)
[2022-01-25] MEDS ORDERED: DAPAGLIFLOZIN 5 MG TAB PO SCH (10:00)
[2022-01-25 13:03] VITALS: BP 103/67
== END 2022-01-25 15:46 | disposition home or self-care (01) | DRG 246 ==
LOC: ER 21:34 → TELE 01-23 03:08 → TELE-EAST 01-23 09:06
PROVIDERS: ADMIT Nurse Practitioner Family; ATTEND Internal Medicine
PROC: 027037Z Dilation of Coronary Artery, One Artery with Four or More Drug-eluting Intraluminal Devices, Percutaneous Approach (ICD-10-PCS; principal; 2022-01-23)
PROC: 4A023N7 Measurement of Cardiac Sampling and Pressure, Left Heart, Percutaneous Approach (ICD-10-PCS; 2022-01-23)
PROC: B211YZZ Fluoroscopy of Multiple Coronary Arteries using Other Contrast (ICD-10-PCS; 2022-01-23)
PROC: B215YZZ Fluoroscopy of Left Heart using Other Contrast (ICD-10-PCS; 2022-01-23)
DX: I21.4 Non-ST elevation (NSTEMI) myocardial infarction (principal); I50.43 Acute on chronic combined systolic (congestive) and diastolic (congestive) heart failure; Z68.41 Body mass index [BMI] 40.0-44.9, adult; E66.01 Morbid (severe) obesity due to excess calories; E78.5 Hyperlipidemia, unspecified; F17.210 Nicotine dependence, cigarettes, uncomplicated; I11.0 Hypertensive heart disease with heart failure; I25.10 Atherosclerotic heart disease of native coronary artery without angina pectoris; I25.5 Ischemic cardiomyopathy; M10.9 Gout, unspecified; J44.9 Chronic obstructive pulmonary disease, unspecified; R09.02 Hypoxemia; Z82.3 Family history of stroke; I25.2 Old myocardial infarction; Z82.49 Family history of ischemic heart disease and other diseases of the circulatory system; Z83.3 Family history of diabetes mellitus; Z20.822 Contact with and (suspected) exposure to COVID-19
CPT/HCPCS: 36415; 71045; 71046; 80053; 81001; 83880; 84484; 85025; 85610; 85730; 96374; 96375; 99152; 99153; C1874; C1887; G0378; J2001; J2250; J2405; Q9967

== ENCOUNTER 2022-02-09 10:02 | Emergency (ER) | payer OTHER, MEDICARE ==
[~2022-02-09] VITALS: Ht 185.4 cm; Wt 141.5 kg
[~2022-02-09 10:02] MED LIST changes: -CAR3125T PO; -SACU1TAB PO
[2022-02-09 11:58] LABS: Basophils # (auto) 0.1 10 ^3/uL (0-0.2); Basophils % (auto) 1.1 % (0.0-2.0); Eosinophils # (auto) 0.2 10 ^3/uL (0-0.8); Eosinophils % (auto) 2.8 % (0.0-7.0); Hematocrit 45.2 % (41.0-53.0); Hemoglobin 14.9 g/dL (13.5-17.5); Mean Corpuscular Hemoglobin 29.1 pg (28.0-32.0); Mean Corpuscular Volume 88.1 fL (80.0-100.0); Monocytes # (auto) 0.7 10 ^3/uL (0-1.3); Monocytes % (auto) 11.6 % (0.0-12.0); Neutrophils # (auto) 2.8 10 ^3/uL (1.6-8.6); Neutrophils % (auto) 49.5 % (37.0-80.0); Nucleated Red Blood Cells % 0.1 %; Red Blood Cells 5.13 10^6/uL (4.5-5.90); Red Cell Distribution Width 14.4 % (11.8-14.3); White Blood Cell 5.6 10^3/uL (4.4-10.8)
[2022-02-09 12:17] LABS: Potassium 4.2 mmol/L (3.5-5.1)
[2022-02-09 12:27] LABS: Albumin 3.5 g/dL (3.4-5.0); BUN/Creatinine Ratio 25.3; Bilirubin, Total 0.5 mg/dL (0.2-1.0); Calcium 9.1 mg/dL (8.5-10.1); Magnesium 2.2 mg/dL (1.6-2.6); Total Protein 8.4 g/dL (6.4-8.2)
[2022-02-09 13:14] LABS: Urine Bacteria NONE SEEN /hpf (None Seen); Urine Blood Negative /uL (Negative); Urine Specific Gravity 1.007 (1.001-1.035); Urine WBC <1 /hpf (0 - 3)
[2022-02-09] MEDS ORDERED: ACETAMINOPHEN 325 MG TAB PO ONE (13:15)
[2022-02-09 14:00] VITALS: BP 128/87
[2022-02-09] MEDS ORDERED: HYDROcodone-ACET 10/325MG TAB PO ONE (14:45)
== END 2022-02-09 15:37 | disposition home or self-care (01) ==
LOC: ER 10:02
DX: S86.912A Strain of unspecified muscle(s) and tendon(s) at lower leg level, left leg, initial encounter (principal); S00.03XA Contusion of scalp, initial encounter; I11.0 Hypertensive heart disease with heart failure; I50.9 Heart failure, unspecified; E11.9 Type 2 diabetes mellitus without complications; E78.5 Hyperlipidemia, unspecified; M10.9 Gout, unspecified; F17.210 Nicotine dependence, cigarettes, uncomplicated; Z90.89 Acquired absence of other organs; Z98.61 Coronary angioplasty status; Z88.6 Allergy status to analgesic agent; W18.39XA Other fall on same level, initial encounter; Y93.89 Activity, other specified; Y92.9 Unspecified place or not applicable; Y99.8 Other external cause status
CPT/HCPCS: 36415; 70450; 72192; 73562; 80053; 81001; 83735; 84484; 85025

== ENCOUNTER 2022-10-11 15:29 | Emergency (ER) | payer MEDICARE, OTHER ==
[~2022-10-11] VITALS: Ht 185.4 cm; Wt 141.0 kg
[2022-10-11 16:04] VITALS: BP 147/105
[2022-10-11] MEDS ORDERED: HYDROcodone-ACET 10/325MG TAB PO ONE (16:15)
[2022-10-11] MEDS ORDERED: methylPREDNISolone SOD SUCC 125 MG/2 ML VL ONE (17:53)
[2022-10-11] MEDS ORDERED: cefTRIAXone SOD 1,000 MG VL ONE (17:54)
[2022-10-11] MEDS ORDERED: METH4PAK PO (18:01)
[2022-10-11] MEDS ORDERED: CEPH-322 PO (18:01)
[2022-10-11] MEDS ORDERED: methylPREDNISolone SOD SUCC 125 MG/2 ML VL IM ONE (18:15)
[2022-10-11] MEDS ORDERED: cefTRIAXone SOD 1,000 MG VL IM ONE (18:15)
== END 2022-10-11 18:32 | disposition home or self-care (01) ==
LOC: ER 15:29
DX: L03.113 Cellulitis of right upper limb (principal); F17.210 Nicotine dependence, cigarettes, uncomplicated; I11.0 Hypertensive heart disease with heart failure; I50.9 Heart failure, unspecified; J44.9 Chronic obstructive pulmonary disease, unspecified; E11.9 Type 2 diabetes mellitus without complications; E78.5 Hyperlipidemia, unspecified
CPT/HCPCS: 73110; 96372; 99284; J0696; J2930

== ENCOUNTER 2022-11-08 09:44 | Emergency (ER) | payer MEDICARE, OTHER ==
[~2022-11-08] VITALS: Ht 185.4 cm; Wt 145.0 kg
[~2022-11-08 09:44] MED LIST changes: +CEPH-322 PO; +METH4PAK PO
[2022-11-08 10:05] VITALS: BP 136/72
[2022-11-08] MEDS ORDERED: FUROSEMIDE 40 MG/4 ML VIAL IV ONE (11:15)
[2022-11-08] MEDS ORDERED: ASPirin 325 MG TAB PO ONE (11:15)
[2022-11-08 12:05] LABS: Basophils # (auto) 0.1 10 ^3/uL (0-0.2); Eosinophils # (auto) 0.3 10 ^3/uL (0-0.8); Hematocrit 42.1 % (41.0-53.0); Hemoglobin 13.7 g/dL (13.5-17.5); Lymphocytes % (auto) 39.3 % (10.0-50.0); Mean Corpuscular Hemoglobin 29.8 pg (28.0-32.0); Mean Corpuscular Hgb Conc. 32.6 g/dL (32.0-36.0); Mean Corpuscular Volume 91.6 fL (80.0-100.0); Monocytes # (auto) 0.6 10 ^3/uL (0-1.3); Monocytes % (auto) 12.6 % (0.0-12.0); Neutrophils # (auto) 2.1 10 ^3/uL (1.6-8.6); Neutrophils % (auto) 41.1 % (37.0-80.0); Nucleated Red Blood Cells % 0.2 %; Red Blood Cells 4.59 10^6/uL (4.5-5.90); Red Cell Distribution Width 14.5 % (11.8-14.3)
[2022-11-08 12:24] LABS: Albumin 3.3 g/dL (3.4-5.0); BUN/Creatinine Ratio 16.9; Calcium 8.8 mg/dL (8.5-10.1); Potassium 3.9 mmol/L (3.5-5.1)
[2022-11-08 12:26] LABS: Bilirubin, Total 0.4 mg/dL (0.2-1.0); Total Protein 7.1 g/dL (6.4-8.2)
[2022-11-08 20:39] LABS: Urine Blood Negative /uL (Negative); Urine Specific Gravity 1.029 (1.001-1.035)
== END 2022-11-08 16:57 | disposition left against medical advice (07) ==
LOC: ER 09:44
DX: I11.0 Hypertensive heart disease with heart failure (principal); I50.9 Heart failure, unspecified; I25.10 Atherosclerotic heart disease of native coronary artery without angina pectoris; J44.9 Chronic obstructive pulmonary disease, unspecified; E11.9 Type 2 diabetes mellitus without complications; E78.5 Hyperlipidemia, unspecified; F17.210 Nicotine dependence, cigarettes, uncomplicated; Z98.890 Other specified postprocedural states; Z79.899 Other long term (current) drug therapy; Z88.6 Allergy status to analgesic agent
CPT/HCPCS: 36415; 71045; 80053; 81003; 83880; 84484; 85025; 93005; 93970

== ENCOUNTER 2023-05-08 08:25 | Emergency (ER) | payer OTHER, MEDICARE ==
[~2023-05-08] VITALS: Ht 185.4 cm; Wt 146.4 kg
[~2023-05-08 08:25] MED LIST changes: +ASPI-736 PO; -ASPI1CHW15 PO; -CEPH-322 PO; +CEPH250C PO
[2023-05-08] MEDS ORDERED: FUROSEMIDE 20 MG/2 ML VIAL IV ONE (08:45)
[2023-05-08] MEDS ORDERED: amLODIPine BESYLATE 5 MG TAB PO ONE (08:45)
[2023-05-08 09:18] VITALS: BP 185/117; RESP 21; TEMP 97.3; O2SAT 98
[2023-05-08 09:51] LABS: INR 1.09 (0.9-1.15); Prothrombin Time 11.4 sec (9.3-11.8)
[2023-05-08 10:04] LABS: Alanine Aminotransferase 18 U/L (7-40); Albumin 4.1 g/dL (3.2-4.8); Alkaline Phosphatase 77 U/L (46-116); Aspartate Aminotransferase 15 U/L (13-40); BUN/Creatinine Ratio 18.8 (10.0-20.0); Blood Urea Nitrogen 13 mg/dL (9-23); Calcium 9.2 mg/dL (8.5-10.1); Chloride 105 mmol/L (98-107); Glucose 126 mg/dL (74-106); Potassium 3.4 mmol/L (3.5-5.1); Sodium 138 mmol/L (136-145)
[2023-05-08 10:05] LABS: Bilirubin, Total 0.4 mg/dL (0.2-1.0); Total Protein 7.4 g/dL (5.7-8.2)
[2023-05-08] MEDS ORDERED: FUR20T GT (10:43)
[2023-05-08] MEDS ORDERED: LISI40TA16 PO (10:43)
[2023-05-08] MEDS ORDERED: POTA10TA51 PO (10:43)
[2023-05-08 10:49] LABS: Urine Bacteria NONE SEEN /hpf (None Seen); Urine Blood Negative /uL (Negative); Urine Clarity Clear (Clear); Urine Color Yellow (Yellow); Urine Protein, UAD 2+ (Negative); Urine Specific Gravity 1.028 (1.001-1.035); Urine WBC 1 /hpf (0 - 3)
[2023-05-08 11:04] LABS: Basophils # (auto) 0.1 10 ^3/uL (0-0.2); Basophils % (auto) 1.1 % (0.0-2.0); Eosinophils # (auto) 0.2 10 ^3/uL (0-0.8); Eosinophils % (auto) 3.5 % (0.0-7.0); Hematocrit 42.4 % (41.0-53.0); Hemoglobin 13.6 g/dL (13.5-17.5); Lymphocytes % (auto) 36.5 % (10.0-50.0); Mean Corpuscular Hemoglobin 29.2 pg (28.0-32.0); Mean Corpuscular Hgb Conc. 32.1 g/dL (32.0-36.0); Mean Corpuscular Volume 90.8 fL (80.0-100.0); Monocytes # (auto) 0.6 10 ^3/uL (0-1.3); Neutrophils # (auto) 2.6 10 ^3/uL (1.6-8.6); Neutrophils % (auto) 47.9 % (37.0-80.0); Nucleated Red Blood Cells % 0.4 %; Red Blood Cells 4.67 10^6/uL (4.5-5.90); Red Cell Distribution Width 14.9 % (11.8-14.3); White Blood Cell 5.5 10^3/uL (4.4-10.8)
[2023-05-08 18:18] VITALS: PULSE 70
== END 2023-05-08 10:59 | disposition left against medical advice (07) ==
LOC: ER 08:25
DX: I50.33 Acute on chronic diastolic (congestive) heart failure (principal); I11.0 Hypertensive heart disease with heart failure; E87.6 Hypokalemia; I25.2 Old myocardial infarction; E78.5 Hyperlipidemia, unspecified; M10.9 Gout, unspecified; E11.9 Type 2 diabetes mellitus without complications; J44.9 Chronic obstructive pulmonary disease, unspecified; I25.119 Atherosclerotic heart disease of native coronary artery with unspecified angina pectoris; F17.210 Nicotine dependence, cigarettes, uncomplicated; Z90.89 Acquired absence of other organs; Z98.890 Other specified postprocedural states
CPT/HCPCS: 36415; 36600; 71045; 80053; 81001; 82805; 83735; 83880; 84484; 85025; 85610; 85730; 93005; 96374; 99285; J1940

== ENCOUNTER 2023-06-15 18:37 | Inpatient (IN) | payer OTHER, MEDICARE ==
[~2023-06-15] VITALS: Ht 185.4 cm; Wt 142.4 kg
[~2023-06-15 18:37] MED LIST changes: +FUR20T GT; +LISI40TA16 PO; +POTA10TA51 PO
[2023-06-15 19:28] LABS: Basophils # (auto) 0 10 ^3/uL (0-0.2); Basophils % (auto) 0.7 % (0.0-2.0); Eosinophils # (auto) 0.2 10 ^3/uL (0-0.8); Hematocrit 41.5 % (41.0-53.0); Hemoglobin 13.5 g/dL (13.5-17.5); Lymphocytes # (auto) 2.2 10 ^3/uL (0.4-5.4); Lymphocytes % (auto) 38.1 % (10.0-50.0); Mean Corpuscular Hemoglobin 29.2 pg (28.0-32.0); Mean Corpuscular Hgb Conc. 32.4 g/dL (32.0-36.0); Mean Corpuscular Volume 90.1 fL (80.0-100.0); Monocytes # (auto) 0.6 10 ^3/uL (0-1.3); Monocytes % (auto) 10.7 % (0.0-12.0); Neutrophils # (auto) 2.7 10 ^3/uL (1.6-8.6); Neutrophils % (auto) 47.5 % (37.0-80.0); Nucleated Red Blood Cells % 0.1 %; Red Blood Cells 4.61 10^6/uL (4.5-5.90); Red Cell Distribution Width 14.9 % (11.8-14.3); White Blood Cell 5.8 10^3/uL (4.4-10.8)
[2023-06-15 19:45] LABS: Alanine Aminotransferase 20 U/L (7-40); Alkaline Phosphatase 71 U/L (46-116); Anion Gap 6 (5-15); Aspartate Aminotransferase 20 U/L (13-40); BUN/Creatinine Ratio 11.9 (10.0-20.0); Blood Urea Nitrogen 13 mg/dL (9-23); Calcium 9.2 mg/dL (8.7-10.4); Carbon Dioxide 30 mmol/L (20-30); Chloride 105 mmol/L (98-107); Glucose 133 mg/dL (74-106); Magnesium 1.3 mg/dL (1.6-2.6); Potassium 3.1 mmol/L (3.5-5.1); Sodium 141 mmol/L (136-145)
[2023-06-15 19:46] LABS: Bilirubin, Total 0.6 mg/dL (0.2-1.0); Total Protein 7.1 g/dL (5.7-8.2)
[2023-06-15 19:47] LABS: INR 1.19 (0.9-1.15); Partial Thromboplastin Time 27.5 SEC (24.5-34.5); Prothrombin Time 12.4 sec (9.3-11.8)
[2023-06-15] MEDS ORDERED: FUROSEMIDE 40 MG/4 ML VIAL IV ONE (20:45)
[2023-06-15] MEDS ORDERED: DEXTROSE (50%) 50ML SYRG IV PRN (22:30)
[2023-06-15] MEDS ORDERED: NITROGLYCERIN 0.4 MG SL TAB SL PRN (22:30)
[2023-06-15] MEDS ORDERED: POTASSIUM EFFERVESENT TAB 25 MEQ PO ONE (22:30)
[2023-06-15] MEDS ORDERED: MORPHINE SULFATE INJ 2 MG/ml SYRG IV PRN (22:30)
[2023-06-15] MEDS ORDERED: ONDANSETRON HCL 4 MG/2 ML VIAL IV PRN (22:30)
[2023-06-15 23:20] VITALS: PULSE 73; RESP 17; O2SAT 98
[2023-06-16] VITALS (10 sets, daily range): BP systolic 105–162; BP diastolic 74–104; PULSE 56–76; RESP 18–22; TEMP 97.3–97.8; O2SAT 97–100
[2023-06-16] MEDS ORDERED: hydrALAZINE HCL 20 MG/ML VL IV PRN
[2023-06-16] MEDS ORDERED: ACETAMINOPHEN 325 MG TAB PO PRN (00:15)
[2023-06-16] MEDS ORDERED: ALBUTEROL SULF 2.5 MG/0.5ML(0.5%) NEB SOLN NEB PRN (00:15)
[2023-06-16] MEDS ORDERED: IPRATROPIUM BROM 0.5 MG/2.5ML INH SOL NEB PRN (00:15)
[2023-06-16] MEDS ORDERED: DOCUSATE SOD 100 MG CAP PO PRN (00:15)
[2023-06-16] MEDS ORDERED: MORPHINE SULFATE INJ 2 MG/ml SYRG IV PRN (00:15)
[2023-06-16] MEDS: HYDROcodone-ACET 5/325MG TAB PO PRN ×2 (00:19→06:46)
[2023-06-16 00:33] LABS: Urine Bacteria NONE SEEN /hpf (None Seen); Urine Blood Negative /uL (Negative); Urine Clarity Clear (Clear); Urine Color Colorless (Yellow); Urine Hyaline Cast FEW /lpf (0 - 2); Urine Protein, UAD TRACE (Negative); Urine Specific Gravity 1.012 (1.001-1.035); Urine Urobilinogen Normal (Negative); Urine WBC <1 /hpf (0 - 3); Urine pH 6.5 (5.0-8.0)
[2023-06-16] MEDS: FUROSEMIDE 20 MG/2 ML VIAL IV SCH ×2 (06:43→18:18)
[2023-06-16] MEDS: ACCU-CHEK COMFORT CURVE STRIP VI SCH ×4 (06:47→22:12)
[2023-06-16] MEDS: InsuLIN REG 1unit/0.01ml Soln (100units/ml) SC SCH ×4 (06:47→22:17)
[2023-06-16 07:11] LABS: Basophils # (auto) 0 10 ^3/uL (0-0.2); Basophils % (auto) 0.9 % (0.0-2.0); Eosinophils # (auto) 0.2 10 ^3/uL (0-0.8); Eosinophils % (auto) 3.2 % (0.0-7.0); Hematocrit 40.6 % (41.0-53.0); Hemoglobin 13.1 g/dL (13.5-17.5); Lymphocytes # (auto) 2.1 10 ^3/uL (0.4-5.4); Mean Corpuscular Hemoglobin 29.3 pg (28.0-32.0); Mean Corpuscular Hgb Conc. 32.3 g/dL (32.0-36.0); Mean Corpuscular Volume 90.5 fL (80.0-100.0); Monocytes # (auto) 0.6 10 ^3/uL (0-1.3); Monocytes % (auto) 10.5 % (0.0-12.0); Neutrophils # (auto) 2.5 10 ^3/uL (1.6-8.6); Neutrophils % (auto) 46.4 % (37.0-80.0); Nucleated Red Blood Cells % 0.1 %; Red Blood Cells 4.49 10^6/uL (4.5-5.90); Red Cell Distribution Width 15.3 % (11.8-14.3); White Blood Cell 5.3 10^3/uL (4.4-10.8)
[2023-06-16 07:29] LABS: Alanine Aminotransferase 18 U/L (7-40); Albumin 3.8 g/dL (3.2-4.8); Alkaline Phosphatase 54 U/L (46-116); Anion Gap 8 (5-15); Aspartate Aminotransferase 25 U/L (13-40); Blood Urea Nitrogen 13 mg/dL (9-23); Calcium 8.8 mg/dL (8.5-10.1); Carbon Dioxide 31 mmol/L (20-30); Chloride 102 mmol/L (98-107); Cholesterol 121 mg/dL (< 200); Glucose 131 mg/dL (74-106); HDL Cholesterol 28 mg/dL (40-59); LDL Cholesterol 79 mg/dL (< 100); Potassium 3.2 mmol/L (3.5-5.1); Sodium 141 mmol/L (136-145); Triglycerides 100 mg/dL (< 150)
[2023-06-16 07:30] LABS: Bilirubin, Total 0.7 mg/dL (0.2-1.0); Total Protein 6.8 g/dL (5.7-8.2)
[2023-06-16] MEDS: POTASSIUM CHL 10 Meq TABLET PO SCH ×2 (09:43→22:11)
[2023-06-16] MEDS: LISINOPRIL 20 MG TAB PO SCH (09:43)
[2023-06-16] MEDS: ASPirin-EC 81 mg tab PO SCH (09:43)
[2023-06-16] MEDS: ALLOPURINOL 300 MG TAB PO SCH (09:43)
[2023-06-16] MEDS ORDERED: OPTISON 3ml Vial for INJ IV ONE (10:45)
[2023-06-16] MEDS ORDERED: POTASSIUM CHL 20 Meq TABLET PO ONE (12:30)
[2023-06-16] MEDS ORDERED: metOLazone 5 MG TAB PO ONE (17:15)
[2023-06-16 19:17] LABS: Amphetamine Screen, Urine Neg (NEGATIVE)
[2023-06-16 19:18] LABS: Barbiturate Scree,Urine Neg (NEGATIVE); Benzodiazephine Screen, Urine Neg (NEGATIVE); Cannabinoid Screen, Urine Neg (NEGATIVE); Cocaine Screen, Urine Neg (NEGATIVE); Opiate Scree,Urine Neg (NEGATIVE); Phencyclidine Screen, Urine Neg (NEGATIVE)
[2023-06-16] MEDS: TAMSULOSIN HYDROCHLORIDE 0.4 MG CAP PO SCH (22:11)
[2023-06-16] MEDS: ATORVASTATIN 20 MG TAB PO SCH (22:11)
[2023-06-17] VITALS (8 sets, daily range): BP systolic 100–131; BP diastolic 70–92; PULSE 63–79; RESP 17–23; TEMP 97.3–98.6; O2SAT 95–100
[2023-06-17] MEDS: InsuLIN REG 1unit/0.01ml Soln (100units/ml) SC SCH ×4 (05:51→21:49)
[2023-06-17] MEDS: ACCU-CHEK COMFORT CURVE STRIP VI SCH ×4 (05:51→21:48)
[2023-06-17] MEDS: FUROSEMIDE 20 MG/2 ML VIAL IV SCH (05:51)
[2023-06-17 09:19] LABS: Hepatitis B Surface Antigen Negative (Negative)
[2023-06-17] MEDS ORDERED: IOHEXOL 350 MG/ML 100ML IJ ONE (09:29)
[2023-06-17 09:40] LABS: Hepatitis C Antibody Negative (Negative)
[2023-06-17] MEDS: ASPirin-EC 81 mg tab PO SCH (10:52)
[2023-06-17] MEDS: POTASSIUM CHL 10 Meq TABLET PO SCH ×2 (10:52→21:46)
[2023-06-17] MEDS: ALLOPURINOL 300 MG TAB PO SCH (10:52)
[2023-06-17] MEDS: LISINOPRIL 20 MG TAB PO SCH (10:57)
[2023-06-17] MEDS ORDERED: TORSEMIDE 20 MG TAB PO ONE (13:45)
[2023-06-17] MEDS ORDERED: BUMETANIDE 2.5mg/10ml (0.25 mg/ml) INJ IV ONE ×2 (13:45→14:00)
[2023-06-17] MEDS ORDERED: SPIRONOLACTONE 25 MG TAB PO ONE (13:45)
[2023-06-17 14:20] LABS: Anion Gap 6 (5-15); Carbon Dioxide 33 mmol/L (20-30); Chloride 100 mmol/L (98-107); Potassium 3.6 mmol/L (3.5-5.1); Sodium 139 mmol/L (136-145)
[2023-06-17 14:26] LABS: BUN/Creatinine Ratio 11.8 (10.0-20.0); Blood Urea Nitrogen 10 mg/dL (9-23); Glucose 105 mg/dL (74-106)
[2023-06-17] MEDS: ATORVASTATIN 20 MG TAB PO SCH (21:47)
[2023-06-17] MEDS: TAMSULOSIN HYDROCHLORIDE 0.4 MG CAP PO SCH (21:47)
[2023-06-18] VITALS (8 sets, daily range): BP systolic 99–128; BP diastolic 66–96; PULSE 62–82; RESP 16–20; TEMP 96.8–98.7; O2SAT 94–100
[2023-06-18] MEDS: InsuLIN REG 1unit/0.01ml Soln (100units/ml) SC SCH ×4 (06:03→21:14)
[2023-06-18] MEDS: ACCU-CHEK COMFORT CURVE STRIP VI SCH ×4 (06:03→21:14)
[2023-06-18 06:54] LABS: Anion Gap 5 (5-15); Carbon Dioxide 37 mmol/L (20-30); Chloride 97 mmol/L (98-107); Potassium 3.3 mmol/L (3.5-5.1); Sodium 139 mmol/L (136-145)
[2023-06-18 06:55] LABS: Calcium 9.5 mg/dL (8.7-10.4)
[2023-06-18 07:00] LABS: Blood Urea Nitrogen 14 mg/dL (9-23); Glucose 109 mg/dL (74-106)
[2023-06-18] MEDS: ASPirin-EC 81 mg tab PO SCH (09:26)
[2023-06-18] MEDS: POTASSIUM CHL 10 Meq TABLET PO SCH ×2 (09:27→21:13)
[2023-06-18] MEDS: LISINOPRIL 20 MG TAB PO SCH (09:27)
[2023-06-18] MEDS: ALLOPURINOL 300 MG TAB PO SCH (09:27)
[2023-06-18] MEDS: CLOPIDOGREL BISULFATE 75 MG TAB PO SCH (09:28)
[2023-06-18] MEDS ORDERED: metOLazone 5 MG TAB PO ONE (16:15)
[2023-06-18] MEDS ORDERED: BUMETANIDE 2.5mg/10ml (0.25 mg/ml) INJ IV ONE (16:15)
[2023-06-18] MEDS: ATORVASTATIN 20 MG TAB PO SCH (21:12)
[2023-06-18] MEDS: TAMSULOSIN HYDROCHLORIDE 0.4 MG CAP PO SCH (21:13)
[2023-06-19] VITALS (11 sets, daily range): BP systolic 99–117; BP diastolic 67–86; PULSE 59–73; RESP 16–20; TEMP 97.6–98.7; O2SAT 96–100
[2023-06-19] MEDS: ACCU-CHEK COMFORT CURVE STRIP VI SCH ×3 (06:29→17:20)
[2023-06-19] MEDS: InsuLIN REG 1unit/0.01ml Soln (100units/ml) SC SCH ×3 (06:30→17:35)
[2023-06-19] MEDS: ASPirin-EC 81 mg tab PO SCH (09:31)
[2023-06-19] MEDS: POTASSIUM CHL 10 Meq TABLET PO SCH (09:31)
[2023-06-19] MEDS: CLOPIDOGREL BISULFATE 75 MG TAB PO SCH (09:32)
[2023-06-19] MEDS: LISINOPRIL 20 MG TAB PO SCH (09:32)
[2023-06-19] MEDS: ALLOPURINOL 300 MG TAB PO SCH (09:32)
[2023-06-19] MEDS ORDERED: POTASSIUM CHL 20 Meq TABLET PO ONE (15:15)
[2023-06-19] MEDS ORDERED: CLOP75TA70 PO (16:16)
[2023-06-19] MEDS ORDERED: FURO1TAB31 PO (16:16)
== END 2023-06-19 19:00 | disposition home or self-care (01) | DRG 291 ==
LOC: ER 18:37 → TELE 22:29 → TELE-CENTR 06-16 05:05
PROVIDERS: ADMIT Nurse Practitioner Family; ATTEND Internal Medicine
PROC: 5A09357 Assistance with Respiratory Ventilation, Less than 24 Consecutive Hours, Continuous Positive Airway Pressure (ICD-10-PCS; principal; 2023-06-17)
PROC: 5A09357 Assistance with Respiratory Ventilation, Less than 24 Consecutive Hours, Continuous Positive Airway Pressure (ICD-10-PCS; 2023-06-19)
DX: I13.0 Hypertensive heart and chronic kidney disease with heart failure and stage 1 through stage 4 chronic kidney disease, or unspecified chronic kidney disease (principal); I50.43 Acute on chronic combined systolic (congestive) and diastolic (congestive) heart failure; Z68.41 Body mass index [BMI] 40.0-44.9, adult; I25.10 Atherosclerotic heart disease of native coronary artery without angina pectoris; E78.5 Hyperlipidemia, unspecified; E66.01 Morbid (severe) obesity due to excess calories; E11.22 Type 2 diabetes mellitus with diabetic chronic kidney disease; F17.210 Nicotine dependence, cigarettes, uncomplicated; N18.9 Chronic kidney disease, unspecified; Z82.3 Family history of stroke; Z82.49 Family history of ischemic heart disease and other diseases of the circulatory system; Z83.3 Family history of diabetes mellitus; Z95.5 Presence of coronary angioplasty implant and graft; Z71.6 Tobacco abuse counseling
CPT/HCPCS: 36415; 71045; 71275; 80048; 80053; 80061; 80307; 81001; 82962; 83036; 83735; 83880; 84484; 85025; 85379; 85610; 85730; 86803; 87081; 87340; 93005; 93306; 94660; 96374; 96375; G0378; J1815; Q9956

== ENCOUNTER 2023-08-04 17:06 | Inpatient (IN) | payer OTHER, MEDICARE ==
[~2023-08-04] VITALS: Ht 185.4 cm; Wt 153.5 kg
[~2023-08-04 17:06] MED LIST changes: +CLOP75TA70 PO; -FUR20T GT; +FURO1TAB31 PO
[2023-08-04 18:19] LABS: Basophils # (auto) 0.1 10 ^3/uL (0-0.2); Basophils % (auto) 0.9 % (0.0-2.0); Eosinophils # (auto) 0.1 10 ^3/uL (0-0.8); Hematocrit 42.5 % (41.0-53.0); Hemoglobin 13.6 g/dL (13.5-17.5); Lymphocytes # (auto) 2.1 10 ^3/uL (0.4-5.4); Mean Corpuscular Hemoglobin 28.8 pg (28.0-32.0); Mean Corpuscular Hgb Conc. 31.9 g/dL (32.0-36.0); Mean Corpuscular Volume 90.3 fL (80.0-100.0); Monocytes # (auto) 0.6 10 ^3/uL (0-1.3); Monocytes % (auto) 10.7 % (0.0-12.0); Neutrophils % (auto) 51.4 % (37.0-80.0); Nucleated Red Blood Cells % 0.2 %; Red Blood Cells 4.71 10^6/uL (4.5-5.90); Red Cell Distribution Width 15.5 % (11.8-14.3); White Blood Cell 5.9 10^3/uL (4.4-10.8)
[2023-08-04 18:36] LABS: Alanine Aminotransferase 40 U/L (7-40); Alkaline Phosphatase 71 U/L (46-116); Calcium 9.2 mg/dL (8.7-10.4)
[2023-08-04 18:37] LABS: Anion Gap 8 (5-15); Aspartate Aminotransferase 30 U/L (13-40); BUN/Creatinine Ratio 14.8 (10.0-20.0); Bilirubin, Total 0.8 mg/dL (0.2-1.0); Blood Urea Nitrogen 13 mg/dL (9-23); Carbon Dioxide 28 mmol/L (20-30); Chloride 104 mmol/L (98-107); Glucose 133 mg/dL (74-106); INR 1.26 (0.9-1.15); Magnesium 1.5 mg/dL (1.6-2.6); Partial Thromboplastin Time 27.2 SEC (24.5-34.5); Potassium 3.4 mmol/L (3.5-5.1); Sodium 140 mmol/L (136-145); Total Protein 6.9 g/dL (5.7-8.2)
[2023-08-04 19:09] LABS: Urine Bacteria FEW /hpf (None Seen); Urine Blood TRACE /uL (Negative); Urine Clarity Clear (Clear); Urine Color Yellow (Yellow); Urine Hyaline Cast FEW /lpf (0 - 2); Urine Protein, UAD 3+ (Negative); Urine Specific Gravity 1.023 (1.001-1.035); Urine WBC 1 /hpf (0 - 3); Urine pH 6.5 (5.0-8.0)
[2023-08-04] MEDS ORDERED: NITROGLYCERIN 0.4 MG SL TAB SL ONE (20:15)
[2023-08-04] MEDS ORDERED: FUROSEMIDE 40 MG/4 ML VIAL IV ONE (20:15)
[2023-08-04] MEDS ORDERED: ASPirin 325 MG TAB PO ONE (20:15)
[2023-08-04 21:15] VITALS: PULSE 89; RESP 20; O2SAT 98
[2023-08-04] MEDS ORDERED: MORPHINE SULFATE INJ 2 MG/ml SYRG IV ONE (21:45)
[2023-08-04] MEDS ORDERED: ONDANSETRON HCL 4 MG/2 ML VIAL IV ONE (21:45)
[2023-08-04] MEDS ORDERED: NITROGLYCERIN 0.4 MG SL TAB SL PRN (22:30)
[2023-08-04] MEDS ORDERED: ONDANSETRON HCL 4 MG/2 ML VIAL IV PRN (22:30)
[2023-08-04] MEDS ORDERED: TEMAZEPAM 15 MG CAP PO PRN (22:30)
[2023-08-05] VITALS (10 sets, daily range): BP systolic 108–143; BP diastolic 67–104; PULSE 62–82; RESP 17–20; TEMP 97.5–98.4; O2SAT 90–99
[2023-08-05] MEDS ORDERED: FUROSEMIDE 20 MG/2 ML VIAL IV SCH (06:00)
[2023-08-05 07:04] LABS: Chloride 103 mmol/L (98-107); Potassium 3.1 mmol/L (3.5-5.1); Sodium 141 mmol/L (136-145)
[2023-08-05 07:05] LABS: Anion Gap 8 (5-15); Carbon Dioxide 30 mmol/L (20-30)
[2023-08-05 07:10] LABS: Glucose 106 mg/dL (74-106)
[2023-08-05 07:11] LABS: BUN/Creatinine Ratio 12.9 (10.0-20.0); Blood Urea Nitrogen 11 mg/dL (9-23)
[2023-08-05] MEDS ORDERED: BUMETANIDE 2.5mg/10ml (0.25 mg/ml) INJ IV ONE (09:30)
[2023-08-05] MEDS: ASPirin 81 mg TAB PO SCH (10:24)
[2023-08-05] MEDS: CLOPIDOGREL BISULFATE 75 MG TAB PO SCH (10:24)
[2023-08-05] MEDS: LISINOPRIL 20 MG TAB PO SCH (10:24)
[2023-08-05] MEDS: ALLOPURINOL 300 MG TAB PO SCH (10:25)
[2023-08-05] MEDS: POTASSIUM CHL 20 Meq TABLET PO SCH ×2 (10:25→22:00)
[2023-08-05] MEDS: SPIRONOLACTONE 25 MG TAB PO SCH (10:25)
[2023-08-05] MEDS: CARVEDILOL 3.125 MG TAB PO SCH ×2 (10:25→21:59)
[2023-08-05] MEDS: NICOTINE 14 MG/24HR TOPICAL PATCH TD SCH (10:26)
[2023-08-05] MEDS: ENOXAPARIN SOD 40 MG/0.4 ML SYRINGE SC SCH (10:27)
[2023-08-05] MEDS: MORPHINE SULFATE INJ 2 MG/ml SYRG IV PRN ×2 (10:38→20:29)
[2023-08-05] MEDS: TAMSULOSIN HYDROCHLORIDE 0.4 MG CAP PO SCH (17:45)
[2023-08-05] MEDS: BUMETANIDE 2.5mg/10ml (0.25 mg/ml) INJ IV SCH (17:45)
[2023-08-05] MEDS: ATORVASTATIN 20 MG TAB PO SCH (22:00)
[2023-08-05] MEDS ORDERED: ATORVASTATIN 20 MG TAB PO SCH (22:00)
[2023-08-06] VITALS (7 sets, daily range): BP systolic 92–135; BP diastolic 61–92; PULSE 62–84; RESP 16–20; TEMP 97.6–98.7; O2SAT 92–100
[2023-08-06] MEDS: ACETAMINOPHEN 325 MG TAB PO PRN (05:40)
[2023-08-06] MEDS: BUMETANIDE 2.5mg/10ml (0.25 mg/ml) INJ IV SCH ×2 (05:40→17:58)
[2023-08-06] MEDS: EMPAGLIFLOZIN 10 MG TAB PO SCH (06:45)
[2023-08-06] MEDS: CARVEDILOL 3.125 MG TAB PO SCH ×2 (10:00→21:57)
[2023-08-06] MEDS: LISINOPRIL 20 MG TAB PO SCH (10:00)
[2023-08-06] MEDS: POTASSIUM CHL 20 Meq TABLET PO SCH ×2 (10:29→21:56)
[2023-08-06] MEDS: ALLOPURINOL 300 MG TAB PO SCH (10:29)
[2023-08-06] MEDS: SPIRONOLACTONE 25 MG TAB PO SCH (10:29)
[2023-08-06] MEDS: ASPirin 81 mg TAB PO SCH (10:29)
[2023-08-06] MEDS: CLOPIDOGREL BISULFATE 75 MG TAB PO SCH (10:29)
[2023-08-06] MEDS: ENOXAPARIN SOD 40 MG/0.4 ML SYRINGE SC SCH (10:30)
[2023-08-06] MEDS: NICOTINE 14 MG/24HR TOPICAL PATCH TD SCH (10:48)
[2023-08-06 15:36] LABS: Urine Bacteria NONE SEEN /hpf (None Seen); Urine Blood Negative /uL (Negative); Urine Clarity Clear (Clear); Urine Color Yellow (Yellow); Urine Protein, UAD Negative (Negative); Urine Specific Gravity 1.019 (1.001-1.035); Urine Urobilinogen Normal (Negative); Urine WBC <1 /hpf (0 - 3); Urine pH 5.5 (5.0-8.0)
[2023-08-06 15:38] LABS: Protein, Urine 7.9 mg/dL (0.0-11.9)
[2023-08-06 15:41] LABS: Creatinine, Urine 72.94 mg/dL (30.0-125.0)
[2023-08-06] MEDS: TAMSULOSIN HYDROCHLORIDE 0.4 MG CAP PO SCH (17:57)
[2023-08-06] MEDS: ATORVASTATIN 20 MG TAB PO SCH (21:57)
[2023-08-06 22:04] LABS: Basophils # (auto) 0 10 ^3/uL (0-0.2); Basophils % (auto) 0.9 % (0.0-2.0); Eosinophils # (auto) 0.2 10 ^3/uL (0-0.8); Eosinophils % (auto) 3.8 % (0.0-7.0); Hematocrit 41.2 % (41.0-53.0); Lymphocytes # (auto) 1.9 10 ^3/uL (0.4-5.4); Lymphocytes % (auto) 36.9 % (10.0-50.0); Mean Corpuscular Hemoglobin 28.9 pg (28.0-32.0); Mean Corpuscular Hgb Conc. 31.4 g/dL (32.0-36.0); Mean Corpuscular Volume 92.1 fL (80.0-100.0); Monocytes # (auto) 0.6 10 ^3/uL (0-1.3); Monocytes % (auto) 12.4 % (0.0-12.0); Neutrophils # (auto) 2.4 10 ^3/uL (1.6-8.6); Nucleated Red Blood Cells % 0.1 %; Red Blood Cells 4.48 10^6/uL (4.5-5.90); Red Cell Distribution Width 15.5 % (11.8-14.3); White Blood Cell 5.2 10^3/uL (4.4-10.8)
[2023-08-06 22:14] LABS: Chloride 102 mmol/L (98-107); Potassium 3.9 mmol/L (3.5-5.1); Sodium 140 mmol/L (136-145)
[2023-08-06 22:15] LABS: Anion Gap 7 (5-15); Calcium 9.6 mg/dL (8.5-10.1); Carbon Dioxide 31 mmol/L (20-30)
[2023-08-06 22:20] LABS: BUN/Creatinine Ratio 11.3 (10.0-20.0); Blood Urea Nitrogen 11 mg/dL (9-23); Glucose 97 mg/dL (74-106)
[2023-08-07 05:00] VITALS: BP 17/72; PULSE 74; RESP 19; TEMP 97.8; O2SAT 98
[2023-08-07] MEDS: EMPAGLIFLOZIN 10 MG TAB PO SCH (06:29)
[2023-08-07] MEDS: BUMETANIDE 2.5mg/10ml (0.25 mg/ml) INJ IV SCH ×2 (06:29→17:57)
[2023-08-07 07:45] LABS: Basophils # (auto) 0.1 10 ^3/uL (0-0.2); Basophils % (auto) 0.9 % (0.0-2.0); Eosinophils # (auto) 0.2 10 ^3/uL (0-0.8); Eosinophils % (auto) 3.6 % (0.0-7.0); Hemoglobin 13.8 g/dL (13.5-17.5); Lymphocytes % (auto) 35.5 % (10.0-50.0); Mean Corpuscular Hemoglobin 29.6 pg (28.0-32.0); Mean Corpuscular Volume 92.4 fL (80.0-100.0); Monocytes # (auto) 0.6 10 ^3/uL (0-1.3); Monocytes % (auto) 10.3 % (0.0-12.0); Neutrophils # (auto) 2.8 10 ^3/uL (1.6-8.6); Neutrophils % (auto) 49.7 % (37.0-80.0); Nucleated Red Blood Cells % 0.2 %; Red Blood Cells 4.66 10^6/uL (4.5-5.90); Red Cell Distribution Width 15.4 % (11.8-14.3); White Blood Cell 5.7 10^3/uL (4.4-10.8)
[2023-08-07 08:00] VITALS: BP 104/68; PULSE 68; PULSE 76; RESP 22; TEMP 98.3; O2SAT 93
[2023-08-07] MEDS: ASPirin 81 mg TAB PO SCH (09:52)
[2023-08-07] MEDS: ALLOPURINOL 300 MG TAB PO SCH (09:52)
[2023-08-07] MEDS: CLOPIDOGREL BISULFATE 75 MG TAB PO SCH (09:52)
[2023-08-07] MEDS: POTASSIUM CHL 20 Meq TABLET PO SCH ×2 (09:52→20:58)
[2023-08-07] MEDS: SPIRONOLACTONE 25 MG TAB PO SCH (09:52)
[2023-08-07] MEDS: CARVEDILOL 3.125 MG TAB PO SCH ×2 (09:53→20:59)
[2023-08-07] MEDS: LISINOPRIL 20 MG TAB PO SCH (09:53)
[2023-08-07] MEDS: ENOXAPARIN SOD 40 MG/0.4 ML SYRINGE SC SCH (09:54)
[2023-08-07] MEDS: NICOTINE 14 MG/24HR TOPICAL PATCH TD SCH (09:55)
[2023-08-07 11:13] LABS: Chloride 101 mmol/L (98-107); Sodium 141 mmol/L (136-145)
[2023-08-07 11:16] LABS: Anion Gap 3 (5-15); Carbon Dioxide 37 mmol/L (20-30)
[2023-08-07 11:17] LABS: Calcium 9.3 mg/dL (8.7-10.4)
[2023-08-07 11:21] LABS: Glucose 101 mg/dL (74-106)
[2023-08-07 11:24] LABS: Phosphorus 4.3 mg/dL (2.4-5.1)
[2023-08-07 11:40] LABS: BUN/Creatinine Ratio 13.6 (10.0-20.0); Blood Urea Nitrogen 14 mg/dL (9-23); Uric Acid 7.7 mg/dL (3.7-9.2)
[2023-08-07 12:00] VITALS: BP 117/74; PULSE 75; RESP 20; TEMP 98; O2SAT 92
[2023-08-07 16:00] VITALS: BP 133/97; PULSE 74; RESP 20; TEMP 98.1; O2SAT 93
[2023-08-07] MEDS: TAMSULOSIN HYDROCHLORIDE 0.4 MG CAP PO SCH (17:56)
[2023-08-07 20:00] VITALS: PULSE 68; RESP 22; O2SAT 93
[2023-08-07] MEDS: ATORVASTATIN 20 MG TAB PO SCH (20:59)
[2023-08-07 22:00] VITALS: BP 87/55; PULSE 78; RESP 18; TEMP 98.8; O2SAT 95
[2023-08-08] MEDS: ACETAMINOPHEN 325 MG TAB PO PRN (00:08)
[2023-08-08 05:00] VITALS: BP 146/102; PULSE 79; RESP 18; TEMP 98.5; O2SAT 95
[2023-08-08] MEDS: BUMETANIDE 2.5mg/10ml (0.25 mg/ml) INJ IV SCH (05:56)
[2023-08-08] MEDS: EMPAGLIFLOZIN 10 MG TAB PO SCH (05:56)
[2023-08-08 08:00] VITALS: BP 114/80; PULSE 74; PULSE 77; PULSE 80; RESP 18; RESP 20; TEMP 98.1; O2SAT 94
[2023-08-08] MEDS: NICOTINE 14 MG/24HR TOPICAL PATCH TD SCH (08:51)
[2023-08-08] MEDS: CLOPIDOGREL BISULFATE 75 MG TAB PO SCH (08:51)
[2023-08-08] MEDS: ENOXAPARIN SOD 40 MG/0.4 ML SYRINGE SC SCH (08:51)
[2023-08-08] MEDS: ALLOPURINOL 300 MG TAB PO SCH (08:51)
[2023-08-08] MEDS: SPIRONOLACTONE 25 MG TAB PO SCH (08:52)
[2023-08-08] MEDS: CARVEDILOL 3.125 MG TAB PO SCH (08:52)
[2023-08-08] MEDS: LISINOPRIL 20 MG TAB PO SCH (08:52)
[2023-08-08] MEDS: ASPirin 81 mg TAB PO SCH (08:52)
[2023-08-08] MEDS: POTASSIUM CHL 20 Meq TABLET PO SCH (10:00)
[2023-08-08 11:58] VITALS: BP 117/79; PULSE 79; RESP 20; TEMP 97.7; O2SAT 93
[2023-08-08 12:00] VITALS: BP 117/74; PULSE 79; RESP 20; TEMP 97.7; O2SAT 93
== END 2023-08-08 13:30 | disposition home or self-care (01) | DRG 280 ==
LOC: ER 17:06 → TELE 22:23 → TELE-EAST 23:44
PROVIDERS: ADMIT Nurse Practitioner; ATTEND Nurse Practitioner
DX: I21.4 Non-ST elevation (NSTEMI) myocardial infarction (principal); I50.23 Acute on chronic systolic (congestive) heart failure; Z68.42 Body mass index [BMI] 45.0-49.9, adult; E11.9 Type 2 diabetes mellitus without complications; E66.01 Morbid (severe) obesity due to excess calories; E78.5 Hyperlipidemia, unspecified; I25.10 Atherosclerotic heart disease of native coronary artery without angina pectoris; M10.9 Gout, unspecified; R34 Anuria and oliguria; F17.210 Nicotine dependence, cigarettes, uncomplicated; I11.0 Hypertensive heart disease with heart failure; J44.9 Chronic obstructive pulmonary disease, unspecified; Z82.3 Family history of stroke; I25.2 Old myocardial infarction; Z82.49 Family history of ischemic heart disease and other diseases of the circulatory system; Z83.3 Family history of diabetes mellitus; Z91.199 Patient's noncompliance with other medical treatment and regimen due to unspecified reason; Z98.61 Coronary angioplasty status; Z71.3 Dietary counseling and surveillance
CPT/HCPCS: 36415; 71045; 71275; 74176; 80048; 80053; 81001; 82306; 82570; 83735; 83880; 84100; 84156; 84300; 84443; 84484; 84550; 85025; 85379; 85610; 85730; 93005; G0378; J2405

== ENCOUNTER 2023-08-26 13:19 | Inpatient (IN) | payer OTHER, MEDICARE ==
[~2023-08-26] VITALS: Ht 185.4 cm; Wt 156.0 kg
[~2023-08-26 13:19] MED LIST changes: -CEPH250C PO; -POTA1TAB61 PO
[2023-08-26 13:59] LABS: Basophils # (auto) 0.1 10 ^3/uL (0-0.2); Eosinophils # (auto) 0.2 10 ^3/uL (0-0.8); Eosinophils % (auto) 2.8 % (0.0-7.0); Hematocrit 40.5 % (41.0-53.0); Hemoglobin 12.8 g/dL (13.5-17.5); Lymphocytes # (auto) 1.9 10 ^3/uL (0.4-5.4); Lymphocytes % (auto) 33.7 % (10.0-50.0); Mean Corpuscular Hemoglobin 28.5 pg (28.0-32.0); Mean Corpuscular Hgb Conc. 31.6 g/dL (32.0-36.0); Mean Corpuscular Volume 90.1 fL (80.0-100.0); Monocytes # (auto) 0.5 10 ^3/uL (0-1.3); Monocytes % (auto) 8.7 % (0.0-12.0); Neutrophils % (auto) 53.8 % (37.0-80.0); Nucleated Red Blood Cells % 0.2 %; Red Cell Distribution Width 15.6 % (11.8-14.3); White Blood Cell 5.6 10^3/uL (4.4-10.8)
[2023-08-26 14:12] LABS: Alanine Aminotransferase 21 U/L (7-40); Albumin 4.2 g/dL (3.2-4.8); Alkaline Phosphatase 82 U/L (46-116); Anion Gap 7 (5-15); Aspartate Aminotransferase 17 U/L (13-40); BUN/Creatinine Ratio 17.8 (10.0-20.0); Blood Urea Nitrogen 16 mg/dL (9-23); Calcium 9.2 mg/dL (8.5-10.1); Carbon Dioxide 30 mmol/L (20-30); Chloride 106 mmol/L (98-107); Glucose 104 mg/dL (74-106); Potassium 4.1 mmol/L (3.5-5.1); Sodium 143 mmol/L (136-145)
[2023-08-26 14:13] LABS: Bilirubin, Total 0.7 mg/dL (0.2-1.0); Total Protein 7.2 g/dL (5.7-8.2)
[2023-08-26] MEDS ORDERED: ASPirin 325 MG TAB PO ONE (15:30)
[2023-08-26] MEDS ORDERED: NITROGLYCERIN 0.4 MG SL TAB SL ONE ×2 (15:30→21:05)
[2023-08-26] MEDS ORDERED: FUROSEMIDE 100 MG/10ML VIAL IV ONE (15:30)
[2023-08-26] MEDS ORDERED: ONDANSETRON HCL 4 MG/2 ML VIAL IV PRN (16:30)
[2023-08-26] MEDS ORDERED: ALBUTEROL SULF 2.5 MG/0.5ML(0.5%) NEB SOLN NEB PRN (16:45)
[2023-08-26 18:55] VITALS: PULSE 76; RESP 18; O2SAT 97
[2023-08-26 19:05] VITALS: PULSE 82; RESP 20; O2SAT 98
[2023-08-26] MEDS: ALBUTEROL SULF 2.5 MG/0.5ML(0.5%) NEB SOLN NEB SCH ×2 (19:06→22:36)
[2023-08-26] MEDS: IPRATROPIUM BROM 0.5 MG/2.5ML INH SOL NEB SCH ×2 (19:06→22:36)
[2023-08-26 19:40] VITALS: BP 131/84; PULSE 82; RESP 20; TEMP 98.6; O2SAT 97
[2023-08-26] MEDS ORDERED: ASPirin 325 MG TAB ONE (20:47)
[2023-08-26] MEDS ORDERED: FUROSEMIDE INJECTION 10 ML ONE (20:47)
[2023-08-26] MEDS ORDERED: ACETAMINOPHEN 325 MG TAB PO ONE (20:47)
[2023-08-26] MEDS: ACETAMINOPHEN 325 MG TAB PO PRN (20:50)
[2023-08-26 21:10] VITALS: RESP 16; O2SAT 100
[2023-08-26] MEDS ORDERED: ALBUTEROL SULF 2.5 MG/0.5ML(0.5%) NEB SOLN ONE (22:03)
[2023-08-26] MEDS ORDERED: IPRATROPIUM BROM 0.5 MG/2.5ML INH SOL ONE (22:03)
[2023-08-26 22:09] LABS: Urine Bacteria NONE SEEN /hpf (None Seen); Urine Blood Negative /uL (Negative); Urine Clarity Clear (Clear); Urine Color Yellow (Yellow); Urine Protein, UAD TRACE (Negative); Urine Specific Gravity 1.016 (1.001-1.035); Urine Urobilinogen Normal (Negative); Urine WBC 1 /hpf (0 - 3)
[2023-08-26 22:33] VITALS: PULSE 74; RESP 18; O2SAT 98
[2023-08-26 22:43] VITALS: PULSE 74; RESP 18; O2SAT 98
[2023-08-26] MEDS ORDERED: TAMSULOSIN HYDROCHLORIDE 0.4 MG CAP PO ONE (23:04)
[2023-08-26] MEDS ORDERED: ATORVASTATIN 20 MG TAB ONE (23:05)
[2023-08-26] MEDS: ATORVASTATIN 20 MG TAB PO SCH (23:06)
[2023-08-26] MEDS: TAMSULOSIN HYDROCHLORIDE 0.4 MG CAP PO SCH (23:06)
[2023-08-27] VITALS (19 sets, daily range): BP systolic 108–139; BP diastolic 66–99; PULSE 68–90; RESP 11–20; TEMP 97.5–97.8; O2SAT 93–100
[2023-08-27] MEDS: IPRATROPIUM BROM 0.5 MG/2.5ML INH SOL NEB SCH ×6 (02:39→22:17)
[2023-08-27] MEDS: ALBUTEROL SULF 2.5 MG/0.5ML(0.5%) NEB SOLN NEB SCH ×6 (02:39→22:17)
[2023-08-27 06:35] LABS: Basophils # (auto) 0 10 ^3/uL (0-0.2); Basophils % (auto) 0.9 % (0.0-2.0); Eosinophils # (auto) 0.1 10 ^3/uL (0-0.8); Eosinophils % (auto) 3.3 % (0.0-7.0); Hematocrit 38.8 % (41.0-53.0); Hemoglobin 12.2 g/dL (13.5-17.5); Lymphocytes # (auto) 1.5 10 ^3/uL (0.4-5.4); Lymphocytes % (auto) 35.9 % (10.0-50.0); Mean Corpuscular Hemoglobin 28.5 pg (28.0-32.0); Mean Corpuscular Hgb Conc. 31.5 g/dL (32.0-36.0); Mean Corpuscular Volume 90.6 fL (80.0-100.0); Monocytes # (auto) 0.5 10 ^3/uL (0-1.3); Monocytes % (auto) 11.9 % (0.0-12.0); Nucleated Red Blood Cells % 0.1 %; Red Blood Cells 4.29 10^6/uL (4.5-5.90); Red Cell Distribution Width 15.9 % (11.8-14.3); White Blood Cell 4.3 10^3/uL (4.4-10.8)
[2023-08-27 06:49] LABS: Alanine Aminotransferase 15 U/L (7-40); Albumin 3.8 g/dL (3.2-4.8); Alkaline Phosphatase 70 U/L (46-116); Anion Gap 6 (5-15); Aspartate Aminotransferase 12 U/L (13-40); BUN/Creatinine Ratio 12.5 (10.0-20.0); Bilirubin, Total 0.5 mg/dL (0.2-1.0); Blood Urea Nitrogen 11 mg/dL (9-23); Calcium 8.5 mg/dL (8.7-10.4); Carbon Dioxide 29 mmol/L (20-30); Chloride 106 mmol/L (98-107); Glucose 112 mg/dL (74-106); Potassium 3.4 mmol/L (3.5-5.1); Sodium 141 mmol/L (136-145)
[2023-08-27 06:50] LABS: Total Protein 6.9 g/dL (5.7-8.2)
[2023-08-27] MEDS ORDERED: MORPHINE SULFATE INJ 2 MG/ml SYRG IV ONE (08:45)
[2023-08-27] MEDS ORDERED: ENOXAPARIN SOD 100 MG/1 ML SYRINGE SC ONE (08:45)
[2023-08-27] MEDS ORDERED: ONDANSETRON HCL 4 MG/2 ML VIAL IV ONE (08:45)
[2023-08-27] MEDS ORDERED: MORPHINE SULFATE INJ 2 MG/ml SYRG ONE ×3 (09:13→20:32)
[2023-08-27] MEDS ORDERED: ONDANSETRON HCL 4 MG/2 ML VIAL ONE (09:13)
[2023-08-27] MEDS ORDERED: ENOXAPARIN SOD 150 MG/1 ML SYRINGE SC ONE (09:13)
[2023-08-27] MEDS ORDERED: FUROSEMIDE 20 MG/2 ML VIAL IV SCH (10:00)
[2023-08-27] MEDS ORDERED: IOHEXOL 350 MG/ML 100ML IJ ONE (10:08)
[2023-08-27] MEDS: ASPirin 81 mg TAB PO SCH (12:07)
[2023-08-27] MEDS: ALLOPURINOL 300 MG TAB PO SCH (12:07)
[2023-08-27] MEDS: LISINOPRIL 20 MG TAB PO SCH (12:07)
[2023-08-27] MEDS: CLOPIDOGREL BISULFATE 75 MG TAB PO SCH (12:07)
[2023-08-27] MEDS ORDERED: BUMETANIDE INJECTION 10 ML ONE (15:24)
[2023-08-27] MEDS: MORPHINE SULFATE INJ 2 MG/ml SYRG IV PRN ×2 (15:29→21:04)
[2023-08-27] MEDS: BUMETANIDE 2.5mg/10ml (0.25 mg/ml) INJ IV SCH (16:29)
[2023-08-27] MEDS: TAMSULOSIN HYDROCHLORIDE 0.4 MG CAP PO SCH (20:34)
[2023-08-27] MEDS: ATORVASTATIN 20 MG TAB PO SCH (20:35)
[2023-08-28] VITALS (12 sets, daily range): BP systolic 98–108; BP diastolic 56–72; PULSE 62–102; RESP 16–21; TEMP 97.4–98.6; O2SAT 90–99
[2023-08-28] MEDS: IPRATROPIUM BROM 0.5 MG/2.5ML INH SOL NEB SCH ×6 (02:00→23:28)
[2023-08-28] MEDS: ALBUTEROL SULF 2.5 MG/0.5ML(0.5%) NEB SOLN NEB SCH ×6 (02:00→23:28)
[2023-08-28] MEDS ORDERED: MORPHINE SULFATE INJ 2 MG/ml SYRG ONE (03:31)
[2023-08-28] MEDS: MORPHINE SULFATE INJ 2 MG/ml SYRG IV PRN ×2 (03:42→17:13)
[2023-08-28] MEDS: LISINOPRIL 20 MG TAB PO SCH (09:12)
[2023-08-28] MEDS ORDERED: BUMETANIDE INJECTION 10 ML ONE (09:13)
[2023-08-28] MEDS: ALLOPURINOL 300 MG TAB PO SCH (09:13)
[2023-08-28] MEDS: CLOPIDOGREL BISULFATE 75 MG TAB PO SCH (09:13)
[2023-08-28] MEDS: ASPirin 81 mg TAB PO SCH (09:13)
[2023-08-28] MEDS: BUMETANIDE 2.5mg/10ml (0.25 mg/ml) INJ IV SCH (09:14)
[2023-08-28] MEDS: TORSEMIDE 20 MG TAB PO SCH (09:53)
[2023-08-28] MEDS ORDERED: FUROSEMIDE 40 MG/4 ML VIAL ONE (18:45)
[2023-08-28] MEDS: FUROSEMIDE 40 MG/4 ML VIAL IV SCH (18:46)
[2023-08-28] MEDS: TAMSULOSIN HYDROCHLORIDE 0.4 MG CAP PO SCH (22:11)
[2023-08-28] MEDS: ATORVASTATIN 20 MG TAB PO SCH (22:11)
[2023-08-29] VITALS (20 sets, daily range): BP systolic 107–147; BP diastolic 71–89; PULSE 65–101; RESP 15–21; TEMP 97.6–98.4; O2SAT 92–100
[2023-08-29] MEDS: ALBUTEROL SULF 2.5 MG/0.5ML(0.5%) NEB SOLN NEB SCH ×6 (02:31→22:58)
[2023-08-29] MEDS: IPRATROPIUM BROM 0.5 MG/2.5ML INH SOL NEB SCH ×6 (02:31→22:58)
[2023-08-29] MEDS: FUROSEMIDE 40 MG/4 ML VIAL IV SCH ×2 (05:58→17:27)
[2023-08-29] MEDS: CLOPIDOGREL BISULFATE 75 MG TAB PO SCH (09:51)
[2023-08-29] MEDS: ASPirin 81 mg TAB PO SCH (09:51)
[2023-08-29] MEDS: ALLOPURINOL 300 MG TAB PO SCH (09:51)
[2023-08-29] MEDS: MORPHINE SULFATE INJ 2 MG/ml SYRG IV PRN ×2 (09:57→14:09)
[2023-08-29] MEDS: BUMETANIDE 2.5mg/10ml (0.25 mg/ml) INJ IV SCH (10:00)
[2023-08-29] MEDS: LISINOPRIL 20 MG TAB PO SCH (10:00)
[2023-08-29] MEDS: TORSEMIDE 20 MG TAB PO SCH (10:00)
[2023-08-29] MEDS: TAMSULOSIN HYDROCHLORIDE 0.4 MG CAP PO SCH (21:19)
[2023-08-29] MEDS: ATORVASTATIN 20 MG TAB PO SCH (21:19)
[2023-08-30 02:58] VITALS: PULSE 86; RESP 20; O2SAT 92
[2023-08-30] MEDS: ALBUTEROL SULF 2.5 MG/0.5ML(0.5%) NEB SOLN NEB SCH ×3 (02:58→10:42)
[2023-08-30] MEDS: IPRATROPIUM BROM 0.5 MG/2.5ML INH SOL NEB SCH ×3 (02:58→10:42)
[2023-08-30 05:00] VITALS: BP 142/102; PULSE 91; RESP 18; TEMP 97.4; O2SAT 94
[2023-08-30] MEDS: FUROSEMIDE 40 MG/4 ML VIAL IV SCH (05:17)
[2023-08-30] MEDS: MORPHINE SULFATE INJ 2 MG/ml SYRG IV PRN (05:20)
[2023-08-30 06:57] VITALS: O2SAT 100
[2023-08-30 08:00] VITALS: PULSE 66; PULSE 77; RESP 20; O2SAT 96
[2023-08-30 09:00] VITALS: BP 102/66; PULSE 77; RESP 18; TEMP 98; O2SAT 98
[2023-08-30] MEDS ORDERED: BUME2TAB5 PO (09:40)
[2023-08-30] MEDS ORDERED: TORS20TA20 PO (09:40)
[2023-08-30] MEDS ORDERED: ASPI-498 PO (09:40)
[2023-08-30] MEDS ORDERED: FURO1TAB31 PO (09:40)
[2023-08-30] MEDS ORDERED: CLOP75TA28 PO (09:40)
[2023-08-30] MEDS ORDERED: ATO40T PO (09:40)
[2023-08-30] MEDS: ASPirin 81 mg TAB PO SCH (10:10)
[2023-08-30] MEDS: BUMETANIDE 2.5mg/10ml (0.25 mg/ml) INJ IV SCH (10:10)
[2023-08-30] MEDS: ALLOPURINOL 300 MG TAB PO SCH (10:10)
[2023-08-30] MEDS: CLOPIDOGREL BISULFATE 75 MG TAB PO SCH (10:10)
[2023-08-30] MEDS: TORSEMIDE 20 MG TAB PO SCH (10:10)
[2023-08-30] MEDS: LISINOPRIL 20 MG TAB PO SCH (10:11)
[2023-08-30] MEDS: ACETAMINOPHEN 325 MG TAB PO PRN (11:30)
[2023-08-30 13:37] VITALS: BP 112/68
[2023-08-30] MEDS ORDERED: IPRATROPIUM BROM 0.5 MG/2.5ML INH SOL NEB PRN (18:00)
[2023-08-30] MEDS ORDERED: ALBUTEROL SULF 2.5 MG/0.5ML(0.5%) NEB SOLN NEB PRN (18:00)
== END 2023-08-30 14:45 | disposition home or self-care (01) | DRG 291 ==
LOC: ER 13:19 → TELE 17:56 → TELE-CENTR 08-27 10:02
PROVIDERS: ADMIT Nurse Practitioner Family; ATTEND Family Medicine
DX: I13.0 Hypertensive heart and chronic kidney disease with heart failure and stage 1 through stage 4 chronic kidney disease, or unspecified chronic kidney disease (principal); I50.43 Acute on chronic combined systolic (congestive) and diastolic (congestive) heart failure; Z68.42 Body mass index [BMI] 45.0-49.9, adult; E66.01 Morbid (severe) obesity due to excess calories; I25.10 Atherosclerotic heart disease of native coronary artery without angina pectoris; J44.9 Chronic obstructive pulmonary disease, unspecified; E78.00 Pure hypercholesterolemia, unspecified; F17.210 Nicotine dependence, cigarettes, uncomplicated; E11.22 Type 2 diabetes mellitus with diabetic chronic kidney disease; M10.9 Gout, unspecified; N18.9 Chronic kidney disease, unspecified; Z79.02 Long term (current) use of antithrombotics/antiplatelets; Z79.82 Long term (current) use of aspirin; Z79.84 Long term (current) use of oral hypoglycemic drugs; Z82.3 Family history of stroke; Z82.49 Family history of ischemic heart disease and other diseases of the circulatory system; Z83.3 Family history of diabetes mellitus; Z91.148 Patient's other noncompliance with medication regimen for other reason; Z95.5 Presence of coronary angioplasty implant and graft
CPT/HCPCS: 36415; 71045; 71275; 80053; 81001; 83880; 84484; 85025; 85379; 87081; 93005; 93925; 94640; 97163; G0378; J2405

== ENCOUNTER 2023-11-09 22:57 | Emergency (ER) | payer MEDICARE, OTHER ==
[~2023-11-09] VITALS: Ht 185.4 cm; Wt 136.8 kg
[~2023-11-09 22:57] MED LIST changes: +ASPI-498 PO; +ATO40T PO; +CLOP75TA28 PO; +TORS20TA20 PO
[2023-11-10 00:21] VITALS: BP 107/76; PULSE 79; RESP 16; TEMP 98.6; O2SAT 97
[2023-11-10] MEDS ORDERED: KETOROLAC TROMETH 60MG/2ML VIAL IM ONE (01:45)
[2023-11-10] MEDS ORDERED: ACE3T PO (01:54)
[2023-11-10] MEDS: ONDANSETRON ODT 4 MG TAB PO ONE ×2 (02:01→02:13)
[2023-11-10] MEDS: HYDROcodone-ACET 5/325MG TAB PO ONE (02:01)
== END 2023-11-10 02:49 | disposition home or self-care (01) ==
LOC: ER 22:57
DX: M77.9 Enthesopathy, unspecified (principal); I11.0 Hypertensive heart disease with heart failure; I50.9 Heart failure, unspecified; I25.2 Old myocardial infarction; I25.10 Atherosclerotic heart disease of native coronary artery without angina pectoris; J44.9 Chronic obstructive pulmonary disease, unspecified; M10.9 Gout, unspecified; E78.5 Hyperlipidemia, unspecified; E11.9 Type 2 diabetes mellitus without complications; F17.210 Nicotine dependence, cigarettes, uncomplicated; Z90.89 Acquired absence of other organs; Z79.82 Long term (current) use of aspirin; Z79.01 Long term (current) use of anticoagulants; Z79.899 Other long term (current) drug therapy
CPT/HCPCS: 73080; 99284; Q0162

== ENCOUNTER 2024-02-19 13:49 | Emergency (ER) | payer MEDICARE, MEDICAID ==
[~2024-02-19] VITALS: Ht 182.9 cm; Wt 110.0 kg
[~2024-02-19 13:49] MED LIST changes: +ACE3T PO; -ATO40T PO; +ATOR-507 PO; +POTA-36 PO; -POTA10TA51 PO
[2024-02-19 14:23] LABS: Basophils # (auto) 0 10 ^3/uL (0-0.2); Basophils % (auto) 0.5 % (0.0-2.0); Eosinophils # (auto) 0.2 10 ^3/uL (0-0.8); Eosinophils % (auto) 3.1 % (0.0-7.0); Hematocrit 44.1 % (41.0-53.0); Hemoglobin 14.5 g/dL (13.5-17.5); Lymphocytes # (auto) 2.7 10 ^3/uL (0.4-5.4); Lymphocytes % (auto) 37.3 % (10.0-50.0); Mean Corpuscular Hgb Conc. 32.8 g/dL (32.0-36.0); Mean Corpuscular Volume 94.3 fL (80.0-100.0); Monocytes % (auto) 13.4 % (0.0-12.0); Neutrophils # (auto) 3.3 10 ^3/uL (1.6-8.6); Neutrophils % (auto) 45.7 % (37.0-80.0); Nucleated Red Blood Cells % 0.2 %; Red Blood Cells 4.67 10^6/uL (4.5-5.90); Red Cell Distribution Width 14.2 % (11.8-14.3); White Blood Cell 7.2 10^3/uL (4.4-10.8)
[2024-02-19 14:46] LABS: Alanine Aminotransferase 19 U/L (7-40); Albumin 4.1 g/dL (3.2-4.8); Alkaline Phosphatase 71 U/L (46-116); Anion Gap 7 (5-15); Aspartate Aminotransferase 23 U/L (13-40); BUN/Creatinine Ratio 24.2 (10.0-20.0); Bilirubin, Total 0.5 mg/dL (0.2-1.0); Blood Urea Nitrogen 22 mg/dL (9-23); Calcium 9.6 mg/dL (8.5-10.1); Carbon Dioxide 30 mmol/L (20-30); Chloride 102 mmol/L (98-107); Glucose 113 mg/dL (74-106); Potassium 3.6 mmol/L (3.5-5.1); Sodium 139 mmol/L (136-145); Total Protein 7.1 g/dL (5.7-8.2)
[2024-02-19] MEDS: HYDROcodone-ACET 10/325MG TAB PO ONE (16:33)
[2024-02-19 16:35] VITALS: O2SAT 98
[2024-02-19 19:07] VITALS: BP 153/88; PULSE 88; RESP 18; TEMP 98.7
== END 2024-02-19 19:15 | disposition home or self-care (01) ==
LOC: EDBD 13:49 → EDUNIT# 13:49 → ER 13:49
DX: R07.89 Other chest pain (principal); I11.0 Hypertensive heart disease with heart failure; I50.9 Heart failure, unspecified; J44.9 Chronic obstructive pulmonary disease, unspecified; E11.9 Type 2 diabetes mellitus without complications; E78.5 Hyperlipidemia, unspecified; F17.210 Nicotine dependence, cigarettes, uncomplicated
CPT/HCPCS: 36415; 71045; 80053; 83880; 84484; 85025; 85379; 93005; 93886

== ENCOUNTER 2024-10-22 16:16 | Emergency (ER) | payer MEDICAID, OTHER ==
[~2024-10-22 16:16] MED LIST changes: -TAMS0.4C36 PO; +TAMS0.4C39 PO
--- NOTE | 2024-10-22 16:36 | ED.PDOC ---
Back pain HPI HPI Comments 64-year-old male presents with a chief complaint of back pain x 2 days. Patient states that he had a mechanical trip and fall over his water hose and landed on his coccyx. Patient is now reporting back pain to his left hip and coccyx region. Patient has no deformities to any of his extremities. Patient is able to ambulate with steady gait and hold himself up. No other symptoms or modifying factors present at this time. Chief Complaint: Back Pain Time Seen by MD: 16:25 Primary Care Provider: STEPHEN Little Notes: Medications, Allergies Allergies: Coded Allergies: NO KNOWN ALLERGIES (Unverified , 06/29/21) Home Meds Active Scripts Acetaminophen W/ Codeine (Tylenol W/Cod #3) 1 Tab Tb, 1 TAB PO QIDPRN, #10 TAB 0 Refills Prov:ELVIN CARDENAS 11/10/23 Torsemide (Torsemide) 20 Mg Tab, 20 MG PO DAILY, #90 TAB Prov:EDWINA EATON MD 08/30/23 Clopidogrel Bisulfate (Plavix) 75 Mg Tab, 1 TAB PO DAILY, #90 TAB 3 Refills Prov:EDWINA EATON MD 08/30/23 Bumetanide (Bumetanide) 2 Mg Tab, 1 TAB PO DAILY, #90 TAB 1 Refill Prov:EDWINA EATON MD 08/30/23 Furosemide (Lasix) 40 Mg Tab, 40 MG PO DAILY, #90 TAB Prov:EDWINA EATON MD 08/30/23 Atorvastatin Calcium (Lipitor) 40 Mg Tab, 1 TAB PO QPM, #90 TAB 1 Refill Prov:EDWINA EATON MD 08/30/23 Aspirin (ASPIRIN 81) 81 Mg Tab, 81 MG PO DAILY, #90 TAB Prov:EDWINA EATON MD 08/30/23 Furosemide (Lasix) 40 Mg Tab, 40 MG PO DAILY for 30 Days, #30 TAB 1 Refill Prov:NAVEED GIRALDO DO 06/19/23 Clopidogrel Bisulfate (CLOPIDOGREL) 75 Mg Tab, 75 MG PO DAILY for 30 Days, #30 TAB 2 Refills Prov:NAVEED GIRALDO DO 06/19/23 Lisinopril (Lisinopril) 40 Mg Tab, 1 TAB PO DAILY for 30 Days, #30 TAB 5 Refills Prov:SEBASTIAN JONES MD 05/08/23 Potassium Chloride (POTASSIUM CHLORIDE CR) 10 Meq Tb, 10 MEQ PO BID for 30 Days, #60 TAB Prov:SEBASTIAN JONES MD 05/08/23 Methylprednisolone (Medrol Dosepak) 4 Mg Sincere, 4 MG PO UD, #21 TAB UAD Prov:JASVIR ESCALERA NP 10/11/22 Atorvastatin Calcium (ATORVASTATIN CALCIUM) 20 Mg Tab, 40 MG PO HS for 30 Days, #30 TAB 4 Refills Prov:VALENTÍN MARLOW MD 12/24/21 Bumetanide (Bumetanide) 2 Mg Tab, 1 TAB PO BID for 30 Days, #60 TAB 5 Refills Prov:VALENTÍN MARLOW MD 12/24/21 Aspirin (Aspirin Low Strength) 81 Mg Chw, 81 MG PO DAILY for 30 Days, #30 TAB.CHEW 4 Refills Prov:VALENTÍN MARLOW MD 12/24/21 Reported Medications Tamsulosin Hcl (Tamsulosin Hcl) 0.4 Mg Cap, 0.4 MG PO HS, CAP 08/24/19 Allopurinol (ZYLOPRIM TABLET) 300 Mg Tb, 300 MG PO DAILY 03/09/19 Information Source: Patient Mode of Arrival: Ambulatory Timing: Days Duration: Since onset Location of Back pain: Other (LEFT HIP/COCCYX REGION) Severity: Moderate Prehospital treatment: None Quality: Aching Onset: Fall Circumstance: Other (MECHANICAL TRIP AND FALL ) History of: None Past Medical History PAST MEDICAL HISTORY: Angina, CAD, CHF, COPD, DM, Gout, High Lipids, HTN, [place] Surgical History: PTCA, Tonsillectomy Family History Family History: Unknown Social History Smoker: Cigarettes, Less Than 1 Pack/Day Alcohol: Occasionally Drugs: Denies Drug Use Lives In: Home Constitutional: denies: chills, diaphoresis, fatigue, fever, malaise, sweats, weakness, others EENTM: denies: blurred vision, double vision, ear bleeding, ear discharge, ear drainage, ear pain, ear ringing, eye pain, eye redness, hearing loss, mouth pain, mouth swelling, nasal discharge, nose bleeding, nose congestion, nose pain, photophobia, tearing, throat pain, throat swelling, voice changes, others Respiratory: denies: cough, hemoptysis, orthopnea, SOB at rest, shortness of breath, SOB with excertion, stridor, wheezing, others Cardiovascular: denies: chest pain, dizzy spells, diaphoresis, Dyspnea on exertion, edema, irregular heart beat, left arm pain, lightheadedness, palpitations, PND, syncope, others Gastrointestinal: denies: abdomen distended, abdominal pain, blood streaked bowels, constipated, diarrhea, dysphagia, difficulty swallowing, hematemesis, melena, nausea, poor appetite, poor fluid intake, rectal bleeding, rectal pain, vomiting, others Genitourinary: denies: burning, dysuria, flank pain, frequency, hematuria, incontinence, penile discharge, penile sore, pain, testicle pain, testicle swelling, urgency, others Neurological: denies: dizziness, fainting, headache, left sided numbness, left sided weakness, numbness, paresthesia, pre-existing deficit, right sided numbness, right sided weakness, seizure, speech problems, tingling, tremors, weakness, others Musculoskeletal: reports: back pain; denies: gout, joint pain, joint swelling, muscle pain, muscle stiffness, neck pain, others Integumetry: denies: bruises, change in color, change in hair/nails, dryness, laceration, lesions, lumps, rash, wounds, others Allergic/Immunocompromised: denies: Difficulty Healing, Frequent Infections, Hives, Itching, others Hematologic/Lymphatic: denies: anemia, blood clots, easy bleeding, easy bruising, swollen glands, others Endocrine: denies: excessive hunger, excessive sweating, excessive thirst, excessive urination, flushing, intolerance to cold, intolerance to heat, unexplained weight gain, unexplained weight loss, others Psychiatric: denies: anxiety, bipolar disorder, depression, hopeless, panic disorder, schizophrenia, sleepless, suicidal, others All Other Systems: Reviewed and Negative Physical Exam General Appearance: No Apparent Distress, Normal HEENT: Normal ENT Inspection, Pharynx Normal, TMs Normal Neck: Full Range of Motion, Non-Tender, Normal, Normal Inspection Respiratory: Chest Non-Tender, Lungs Clear, No Accessory Muscle Use, No Respiratory Distress, Normal Breath Sounds Cardiovascular: No Edema, No JVD, No Murmur, No Gallop, Normal Peripheral Pulses, Regular Rate/Rhythm Breast Exam: Deferred Gastrointestinal: No Organomegaly, Non Tender, No Pulsatile Mass, Normal Bowel Sounds, Soft Genitalia: Deferred Pelvic: Deferred Rectal: Deferred Extremities: No pedal edema, Tender (LEFT HIP/COCCYX , NO BRUISING, ABLE TO AMBULATE AND HOLD HIS WEIGHT) Musculoskeletal : Apperance: Normal Neurologic: Alert, skiver machine II-XII nml as Tested, No Motor Deficits, Normal Affect, Normal Mood, No Sensory Deficits Cerebellar Function: Normal Reflexes: Normal Skin: Dry, Normal Color, Warm Lymphatic: No Adenopathy Was a procedure done? Was a procedure done?: No Back Pain Differential Dx Differential Diagnosis: Fracture, Musculoskeletal Pain, Other (contusion) X-Ray, Labs, Meds, VS Vital Signs Date Time Temp Pulse Resp B/P (MAP) Pulse Ox O2 Delivery O2 Flow Rate FiO2 10/22/24 16:27 98.0 72 16 133/85 (101) 92 Time of 1ST Reevaluation: 16:55 Reevaluation 1ST: Unchanged Patient Education/Counseling: Diagnosis, Treatment, Prognosis, Need For Follow Up Family Education/Counseling: Diagnosis, Treatment, Prognosis, Need For Follow Up Comments I reviewed the following notes from patient's past medical encounters: LAST VISIT WAS February FOR CHEST PAIN The following tests were ordered, and results were reviewed by me: X-RAY, PAIN MEDICATION I reviewed and agreed with the following test results read by other providers: RADIOLOGIST FOR X-RAY READING I discussed treatment and results with medical personnel and: PATIENT pt has a fracture of the coccyx. i will prescribe pain medication for him. i have also advised him about sitting with a towel rolled into a donut. he is stable to follow up with his pcp Departure 1 Departure Time of Disposition: 17:26 Impression: Primary Impression: Coccygeal fracture Qualified Codes: S32.2XXA - Fracture of coccyx, initial encounter for closed fracture Disposition: HOME / SELF CARE / HOMELESS Condition: Good e-Prescriptions Docusate Sodium (Colace) 100 Mg Cap 1 CAP PO BID, #30 CAP Prov: RAMIRO HAMLIN MD 10/22/24 Hydrocodone-Acetaminophen (Hydrocodone Bitartrate/AC 5-325 mg) 1 Tab Tab 1 TAB PO Q6HP PRN for 5 Days, #20 TAB Prov: RAMIRO HAMLIN MD 10/22/24 Discharged With: Self Critical Care Note Critical Care Time?: No I personally scribed for RAMIRO HAMLIN MD ([email or web address]) on 10/22/24 at 16:36. Electronically submitted by Rizwan Barry ([email or web address]). RAMIRO HAMLIN MD Oct 22, 2024 16:36
--- NOTE | 2024-10-22 17:13 | DVH ---
CLINICAL INDICATION: falling TECHNIQUE: 3 radiographic views of the sacrum and coccyx were obtained. Comparison: None FINDINGS/IMPRESSION: There is lucency over the proximal coccyx with slight cortical step-off. Recommend correlation with point tenderness for possible nondisplaced fracture and consider CT for further evaluation if clinica lly indicated.
--- NOTE | 2024-10-22 17:18 | DVH ---
CLINICAL INDICATION: falling TECHNIQUE: 3 views of the left hip. Comparison: None FINDINGS/IMPRESSION: There is no evidence of acute fracture or dislocation. Soft tissues are unremarkable.
[2024-10-22] MEDS ORDERED: DOCU-94 PO (17:27)
[2024-10-22] MEDS ORDERED: HYDR-4902 PO (17:27)
[2024-10-22 19:11] VITALS: BP 130/82; PULSE 78; RESP 16; TEMP 97.8; O2SAT 95
[2024-10-22] MEDS: HYDROcodone-ACET 5/325MG TAB PO ONE (19:15)
== END 2024-10-22 19:25 | disposition home or self-care (01) ==
LOC: ER 16:16
DX: S32.2XXA Fracture of coccyx, initial encounter for closed fracture (principal); J44.9 Chronic obstructive pulmonary disease, unspecified; E78.5 Hyperlipidemia, unspecified; I11.0 Hypertensive heart disease with heart failure; I50.89 Other heart failure; F17.210 Nicotine dependence, cigarettes, uncomplicated; Z79.899 Other long term (current) drug therapy; Z79.84 Long term (current) use of oral hypoglycemic drugs; Z98.890 Other specified postprocedural states; W01.0XXA Fall on same level from slipping, tripping and stumbling without subsequent striking against object, initial encounter; Y93.89 Activity, other specified; Y92.89 Other specified places as the place of occurrence of the external cause; Y99.8 Other external cause status
CPT/HCPCS: 72220; 73502

== ENCOUNTER 2024-11-11 21:01 | Inpatient (IN) | payer OTHER ==
[~2024-11-11] VITALS: Ht 185.4 cm; Wt 142.0 kg
[~2024-11-11 21:01] MED LIST changes: +DOCU-94 PO; +HYDR-4902 PO
--- NOTE | 2024-11-11 21:29 | ED.PDOC ---
HPI Comments 64-year-old male came to emergency room due to chest pains. Extensive cardiac history including hypertension, diabetes, obesity, CAD, CHF, cardiac stents. States for the past 2 days, he has been having left sided chest pains, pressure, intermittent, unprovoked, radiating to his neck, associated with shortness of breath, diaphoresis and worsening bipedal edema. Chief Complaint: Chest Pain Time Seen by MD: 21:28 Primary Care Provider: ISABEL Reviewed Notes: Nurses Notes Allergies: Coded Allergies: NO KNOWN ALLERGIES (Unverified , 06/29/21) Home Meds Active Scripts Docusate Sodium (Colace) 100 Mg Cap, 1 CAP PO BID, #30 CAP Prov:RAMIRO HAMLIN MD 10/22/24 Hydrocodone-Acetaminophen (Hydrocodone Bitartrate/AC 5-325 mg) 1 Tab Tab, 1 TAB PO Q6HP PRN for 5 Days, #20 TAB Prov:RAMIRO HAMLIN MD 10/22/24 Acetaminophen W/ Codeine (Tylenol W/Cod #3) 1 Tab Tb, 1 TAB PO QIDPRN, #10 TAB 0 Refills Prov:ELVIN CARDENAS 11/10/23 Torsemide (Torsemide) 20 Mg Tab, 20 MG PO DAILY, #90 TAB Prov:EDWINA EATON MD 08/30/23 Clopidogrel Bisulfate (Plavix) 75 Mg Tab, 1 TAB PO DAILY, #90 TAB 3 Refills Prov:EDWINA EATON MD 08/30/23 Bumetanide (Bumetanide) 2 Mg Tab, 1 TAB PO DAILY, #90 TAB 1 Refill Prov:EDWINA EATON MD 08/30/23 Furosemide (Lasix) 40 Mg Tab, 40 MG PO DAILY, #90 TAB Prov:EDWINA EATON MD 08/30/23 Atorvastatin Calcium (Lipitor) 40 Mg Tab, 1 TAB PO QPM, #90 TAB 1 Refill Prov:EDWINA EATON MD 08/30/23 Aspirin (ASPIRIN 81) 81 Mg Tab, 81 MG PO DAILY, #90 TAB Prov:EDWINA EATON MD 08/30/23 Furosemide (Lasix) 40 Mg Tab, 40 MG PO DAILY for 30 Days, #30 TAB 1 Refill Prov:NAVEED GIRALDO DO 10/7/23 Clopidogrel Bisulfate (CLOPIDOGREL) 75 Mg Tab, 75 MG PO DAILY for 30 Days, #30 TAB 2 Refills Prov:GIRALDONAVEED Winsome RUSHING 06/19/23 Lisinopril (Lisinopril) 40 Mg Tab, 1 TAB PO DAILY for 30 Days, #30 TAB 5 Refills Prov:SEBASTIAN JONES MD 05/08/23 Potassium Chloride (POTASSIUM CHLORIDE CR) 10 Meq Tb, 10 MEQ PO BID for 30 Days, #60 TAB Prov:SEBASTIAN JONES MD 05/08/23 Methylprednisolone (Medrol Dosepak) 4 Mg Sincere, 4 MG PO UD, #21 TAB UAD Prov:JASVIR ESCALERA NP 10/11/22 Atorvastatin Calcium (ATORVASTATIN CALCIUM) 20 Mg Tab, 40 MG PO HS for 30 Days, #30 TAB 4 Refills Prov:VALENTÍN MARLOW MD 12/24/21 Bumetanide (Bumetanide) 2 Mg Tab, 1 TAB PO BID for 30 Days, #60 TAB 5 Refills Prov:VALENTÍN MARLOW MD 12/24/21 Aspirin (Aspirin Low Strength) 81 Mg Chw, 81 MG PO DAILY for 30 Days, #30 TAB.CHEW 4 Refills Prov:VALENTÍN MARLOW MD 12/24/21 Reported Medications Tamsulosin Hcl (Tamsulosin Hcl) 0.4 Mg Cap, 0.4 MG PO HS, CAP 08/24/19 Allopurinol (ZYLOPRIM TABLET) 300 Mg Tb, 300 MG PO DAILY 03/09/19 Information Source: Patient Mode of Arrival: Wheelchair Severity: Moderate Timing: Days Duration: Intermittent Prehospital treatment: Oxygen Location: Chest (L) Radiation: Neck Quality: Pressure Onset: With Light Exertion Cardiac Risk Factors: HTN, Diabetes PE Risk Factors: None History of: Similar pain in past, [place] Modifying Factors: Nothing Associated Signs and Symptoms: SOB, Diaphoresis Past Medical History PAST MEDICAL HISTORY: Angina, CAD, CHF, COPD, DM, Gout, High Lipids, HTN, [place] Surgical History: PTCA, Tonsillectomy Family History Family History: Reviewed,noncontributory to illness Social History Smoker: Cigarettes, Less Than 1 Pack/Day Alcohol: Occasionally Drugs: Denies Drug Use Lives In: Home Constitutional: reports: fatigue, malaise, weakness; denies: chills, diaphoresis, fever, sweats, others EENTM: denies: blurred vision, double vision, ear bleeding, ear discharge, ear drainage, ear pain, ear ringing, eye pain, eye redness, hearing loss, mouth pain, mouth swelling, nasal discharge, nose bleeding, nose congestion, nose pain, photophobia, tearing, throat pain, throat swelling, voice changes, others Respiratory: reports: orthopnea, SOB at rest, shortness of breath, SOB with excertion; denies: cough, hemoptysis, stridor, wheezing, others Cardiovascular: reports: chest pain, dizzy spells, diaphoresis, Dyspnea on exertion, edema; denies: irregular heart beat, left arm pain, lightheadedness, palpitations, PND, syncope, others Gastrointestinal: denies: abdomen distended, abdominal pain, blood streaked bowels, constipated, diarrhea, dysphagia, difficulty swallowing, hematemesis, melena, nausea, poor appetite, poor fluid intake, rectal bleeding, rectal pain, vomiting, others Genitourinary: denies: burning, dysuria, flank pain, frequency, hematuria, incontinence, penile discharge, penile sore, pain, testicle pain, testicle swelling, urgency, others Neurological: denies: dizziness, fainting, headache, left sided numbness, left sided weakness, numbness, paresthesia, pre-existing deficit, right sided numbness, right sided weakness, seizure, speech problems, tingling, tremors, weakness, others Musculoskeletal: denies: back pain, gout, joint pain, joint swelling, muscle pain, muscle stiffness, neck pain, others Integumetry: denies: bruises, change in color, change in hair/nails, dryness, laceration, lesions, lumps, rash, wounds, others Allergic/Immunocompromised: denies: Difficulty Healing, Frequent Infections, Hives, Itching, others Hematologic/Lymphatic: denies: anemia, blood clots, easy bleeding, easy bruising, swollen glands, others Endocrine: denies: excessive hunger, excessive sweating, excessive thirst, excessive urination, flushing, intolerance to cold, intolerance to heat, unexplained weight gain, unexplained weight loss, others Psychiatric: denies: anxiety, bipolar disorder, depression, hopeless, panic disorder, schizophrenia, sleepless, suicidal, others Physical Exam General Appearance: No Apparent Distress, Obese HEENT: Normal ENT Inspection, Pharynx Normal, TMs Normal Neck: Full Range of Motion, Non-Tender, Normal, Normal Inspection Respiratory: Chest Non-Tender, Lungs Clear, No Accessory Muscle Use, No Respiratory Distress, Normal Breath Sounds Cardiovascular: No Edema, No JVD, No Murmur, No Gallop, Normal Peripheral Pulses, Regular Rate/Rhythm Breast Exam: Deferred Gastrointestinal: No Organomegaly, Non Tender, No Pulsatile Mass, Normal Bowel Sounds, Soft Genitalia: Deferred Pelvic: Deferred Rectal: Deferred Extremities: No calf tenderness, Normal capillary refill, Normal inspection, Normal range of motion, Non-tender, No pedal edema Musculoskeletal : Apperance: Normal Neurologic: Alert, escrow clerk II-XII nml as Tested, No Motor Deficits, Normal Affect, Normal Mood, No Sensory Deficits Cerebellar Function: Normal Reflexes: Normal Skin: Dry, Normal Color, Warm Lymphatic: No Adenopathy Was a procedure done? Was a procedure done?: No CP Differential Dx Differential Diagnosis: Angina, Anxiety / Panic Attack, Hyperventilation Differential Diagnosis: CHF, HTN Essential Differential Diagnosis: Angina, Chest Wall Pain, Costochondritis, Esophageal reflux/spasm, Gastritis, Myocardial Infarction X-Ray, Labs, Meds, VS Vital Signs Date Time Temp Pulse Resp B/P (MAP) Pulse Ox O2 Delivery O2 Flow Rate FiO2 11/12/24 00:17 61 11/11/24 22:21 65 11/11/24 21:11 70 11/11/24 21:01 99.0 74 12 145/95 (112) 95 Lab Test 11/12/24 00:29 11/11/24 22:26 11/11/24 21:15 Range/Units Troponin I High Sensitivity </=54 ng/L White Blood Count 6.0 4.4-10.8 10^3/uL Red Blood Count 5.02 4.5-5.90 10^6/uL Hemoglobin 14.8 13.5-17.5 g/dL Hematocrit 45.9 41.0-53.0 % Mean Corpuscular Volume 91.5 80.0-100.0 fL Mean Corpuscular Hemoglobin 29.5 28.0-32.0 pg Mean Corpuscular Hemoglobin Concent 32.2 32.0-36.0 g/dL Red Cell Distribution Width 14.6 H 11.8-14.3 % Platelet Count 178 140-450 10^3/uL Mean Platelet Volume 9.1 6.9-10.8 fL Neutrophils (%) (Auto) 47.3 37.0-80.0 % Lymphocytes (%) (Auto) 37.3 10.0-50.0 % Monocytes (%) (Auto) 10.1 0.0-12.0 % Eosinophils (%) (Auto) 4.6 0.0-7.0 % Basophils (%) (Auto) 0.7 0.0-2.0 % Neutrophils # (Auto) 2.9 1.6-8.6 10 ^3/uL Lymphocytes # (Auto) 2.3 0.4-5.4 10 ^3/uL Monocytes # (Auto) 0.6 0-1.3 10 ^3/uL Eosinophils # (Auto) 0.3 0-0.8 10 ^3/uL Basophils # (Auto) 0 0-0.2 10 ^3/uL Nucleated Red Blood Cells 0.2 % Sodium Level 141 136-145 mmol/L Potassium Level 3.3 L 3.5-5.1 mmol/L Chloride Level 102 98-107 mmol/L Carbon Dioxide Level 28 20-31 mmol/L Anion Gap 11 5-15 Blood Urea Nitrogen 17 9-23 mg/dL Creatinine 0.99 0.700-1.30 mg/dL Glomerular Filtration Rate Calc 85 >90 mL/min BUN/Creatinine Ratio 17.2 10.0-20.0 Serum Glucose 125 H 74-106 mg/dL Calcium Level 8.9 8.7-10.4 mg/dL Time of 1ST Reevaluation: 21:23 Reevaluation 1ST: Unchanged Patient Education/Counseling: Diagnosis, Treatment Family Education/Counseling: No Family Present Departure 1 Departure Time of Disposition: 05:58 (Patient presented with chest pain that was concerning for possible STEMI, ACS, PE, Pneumonia, Muscle Strain, COPD, Dissection. Data: 1. I ordered and reviewed the result of at least 3 labs including a CBC, BMP, and Troponin. 2. I independently interpreted the following tests: EKG which shows sinus arrhythmia and Chest X-ray which shows benign chest.Risk:This patient has a high risk of morbidity due to further diagnostic testing or treatment and may suffer from an acute cardiac or respiratory disorder. Workup reveals _ concern for ACS and patient should be admitted for further workup and possible expert consultation. ) Impression: Primary Impression: Acute chest pain Additional Impression: SOB (shortness of breath) Disposition: 09 ADMITTED INPATIENT Admit to: Med Surg Condition: Serious Critical Care Note Critical Care Time?: Yes (35 min-critical care time only) Critical care comment: Active chest pains Authorized and Performed by: Liberty Clemons MD Total critical care time: Approximately 42 minutes Due to a high probability of clinically significant, life threatening deterioration, the patient required my highest level of preparedness to intervene emergently and I personally spent this critical care time directly and personally managing the patient. This critical care time included obtaining a history; examining the patient; pulse oximetry; ordering and review of studies; arranging urgent treatment with development of a management plan; evaluation of patient's response to treatment; frequent reassessment; and, discussions with other providers. This critical care time was performed to assess and manage the high probability of imminent, life-threatening deterioration that could result in multi-organ failure. It was exclusive of separately billable procedures and treating other patients and teaching time. Please see my other sections and the rest of the note for further information on patient assessment and treatment. Stability Stability form required: No Heart Score Heart Score: Heart Score Response (Comments) Value History Moderate Suspicious 1 EKG Repolarization Disturb 1 Age >65 2 Risk Factors >3 or Hx ASHD 2 Troponin Normal limit 0 Total 6 I personally scribed for LIBERTY CLEMONS MD ([email or web address]) on 11/11/24 at 21:29. Electronically submitted by Gregg Peacock ([email or web address]). LIBERTY CLEMONS MD Nov 11, 2024 21:29
[2024-11-11 21:34] LABS: Basophils # (auto) 0 10 ^3/uL (0-0.2); Basophils % (auto) 0.7 % (0.0-2.0); Eosinophils # (auto) 0.3 10 ^3/uL (0-0.8); Eosinophils % (auto) 4.6 % (0.0-7.0); Hematocrit 45.9 % (41.0-53.0); Hemoglobin 14.8 g/dL (13.5-17.5); Lymphocytes # (auto) 2.3 10 ^3/uL (0.4-5.4); Lymphocytes % (auto) 37.3 % (10.0-50.0); Mean Corpuscular Hemoglobin 29.5 pg (28.0-32.0); Mean Corpuscular Hgb Conc. 32.2 g/dL (32.0-36.0); Mean Corpuscular Volume 91.5 fL (80.0-100.0); Monocytes # (auto) 0.6 10 ^3/uL (0-1.3); Monocytes % (auto) 10.1 % (0.0-12.0); Neutrophils # (auto) 2.9 10 ^3/uL (1.6-8.6); Neutrophils % (auto) 47.3 % (37.0-80.0); Nucleated Red Blood Cells % 0.2 %; Platelet Count (auto) 178 10^3/uL (140-450); Red Blood Cells 5.02 10^6/uL (4.5-5.90); Red Cell Distribution Width 14.6 % (11.8-14.3)
[2024-11-11 21:44] LABS: Chloride 102 mmol/L (98-107); Sodium 141 mmol/L (136-145)
[2024-11-11 21:45] LABS: Anion Gap 11 (5-15); Calcium 8.9 mg/dL (8.7-10.4); Carbon Dioxide 28 mmol/L (20-31)
[2024-11-11 21:50] LABS: BUN/Creatinine Ratio 17.2 (10.0-20.0); Blood Urea Nitrogen 17 mg/dL (9-23)
[2024-11-11 21:51] LABS: Glucose 125 mg/dL (74-106); Potassium 3.3 mmol/L (3.5-5.1)
--- NOTE | 2024-11-11 22:00 | DVH ---
EXAM: XY CHEST TWO VIEWS ROUTINE TECHNIQUE: Two radiographic views of the chest CLINICAL HISTORY: chest pain COMPARISON: CXR2 on DOS: 01/24/22 Findings/Impression: Frontal and lateral chest radiographs demonstrate no acute osseous or superficial soft tissue abnorma lities. The trachea is midline. Mild cardiomegaly. Enlarged pulmonary arteries. Correlate for pulmonary jennifer ry hypertension. No pneumothorax, pleural effusions, or consolidations.
[2024-11-12] MEDS ORDERED: HYDROcodone-ACET 5/325MG TAB PO PRN (01:00)
[2024-11-12] MEDS ORDERED: ONDANSETRON HCL 4 MG/2 ML VIAL IV PRN (01:00)
[2024-11-12] MEDS ORDERED: ACETAMINOPHEN 325 MG TAB PO PRN (01:00)
[2024-11-12] MEDS ORDERED: MORPHINE SULFATE INJ 2 MG/ml SYRG IV PRN (01:00)
[2024-11-12] MEDS ORDERED: NITROGLYCERIN 0.4 MG SL TAB SL PRN (01:00)
--- NOTE | 2024-11-12 01:05 | DVHHP2 ---
Admitting Diagnosis: Chest Pain rule out NC History of Present Illness History Source: Patient Exam Limitations: No limitations HPI Mr. David Layton is a 64-year-old male with a history of hypertension, diabetes, obesity, CAD, CHF, cardiac stents. Patient presents with a chief compl aint of x2 days has been having left sided chest pains, pressure, intermittent, unprovoked, radiating to his neck, associated with shortness of breath, diaphoresis and worsening bipedal edema. Patient reports he is compliant with his home medications. 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 Patient reports he uses supplemental home 02 as needed. Patient currently denies chest pain, dyspnea, headaches, dizziness, abdominal pain, nausea, vomiting. Patient with a heart score of 6 will be admitted for further evaluation. Home Meds Active Scripts Docusate Sodium (Colace) 100 Mg Cap, 1 CAP PO BID, #30 CAP Prov:RAMIRO HAMLIN MD 10/22/24 Hydrocodone-Acetaminophen (Hydrocodone Bitartrate/AC 5-325 mg) 1 Tab Tab, 1 TAB PO Q6HP PRN for 5 Days, #20 TAB Prov:RAMIRO HAMLIN MD 10/22/24 Acetaminophen W/ Codeine (Tylenol W/Cod #3) 1 Tab Tb, 1 TAB PO QIDPRN, #10 TAB 0 Refills Prov:ELVIN CARDENAS 11/10/23 Torsemide (Torsemide) 20 Mg Tab, 20 MG PO DAILY, #90 TAB Prov:EDWINA EATON MD 08/30/23 Clopidogrel Bisulfate (Plavix) 75 Mg Tab, 1 TAB PO DAILY, #90 TAB 3 Refills Prov:EDWINA EATON MD 08/30/23 Bumetanide (Bumetanide) 2 Mg Tab, 1 TAB PO DAILY, #90 TAB 1 Refill Prov:EDWINA EATON MD 08/30/23 Furosemide (Lasix) 40 Mg Tab, 40 MG PO DAILY, #90 TAB Prov:EDWINA EATON MD 08/30/23 Atorvastatin Calcium (Lipitor) 40 Mg Tab, 1 TAB PO QPM, #90 TAB 1 Refill Prov:EDWINA EATON MD 08/30/23 Aspirin (ASPIRIN 81) 81 Mg Tab, 81 MG PO DAILY, #90 TAB Prov:EDWINA EATON MD 08/30/23 Furosemide (Lasix) 40 Mg Tab, 40 MG PO DAILY for 30 Days, #30 TAB 1 Refill Prov:NAVEED GIRALDO DO 06/19/23 Clopidogrel Bisulfate (CLOPIDOGREL) 75 Mg Tab, 75 MG PO DAILY for 30 Days, #30 TAB 2 Refills Prov:KRISTALNAVEED Winsome RUSHING 06/19/23 Lisinopril (Lisinopril) 40 Mg Tab, 1 TAB PO DAILY for 30 Days, #30 TAB 5 Refills Prov:SEBASTIAN JONES MD 05/08/23 Potassium Chloride (POTASSIUM CHLORIDE CR) 10 Meq Tb, 10 MEQ PO BID for 30 Days, #60 TAB Prov:SEBASTIAN JONES MD 05/08/23 Methylprednisolone (Medrol Dosepak) 4 Mg Sincere, 4 MG PO UD, #21 TAB UAD Prov:JASVIR ESCALERA NP 10/11/22 Atorvastatin Calcium (ATORVASTATIN CALCIUM) 20 Mg Tab, 40 MG PO HS for 30 Days, #30 TAB 4 Refills Prov:VALENTÍN MARLOW MD 12/24/21 Bumetanide (Bumetanide) 2 Mg Tab, 1 TAB PO BID for 30 Days, #60 TAB 5 Refills Prov:VALENTÍN MARLOW MD 12/24/21 Aspirin (Aspirin Low Strength) 81 Mg Chw, 81 MG PO DAILY for 30 Days, #30 TAB.CHEW 4 Refills Prov:VALENTÍN MARLOW MD 12/24/21 Reported Medications Tamsulosin Hcl (Tamsulosin Hcl) 0.4 Mg Cap, 0.4 MG PO HS, CAP 08/24/19 Allopurinol (ZYLOPRIM TABLET) 300 Mg Tb, 300 MG PO DAILY 03/09/19 Past Medical History Cardiac: CAD, CHF, HTN, NC (with stent placement) Pulmonary: No pertinent Hx Central Nervous System: No pertinent Hx GI: No pertinent Hx Hemotology/Oncology: No pertinent Hx Hepatobiliary: No pertinent Hx Psychiatric: No pertinent Hx Musculoskeletal: No pertinent Hx Rheumotologic: No pertinent Hx Infectious Disease: No peritnent Hx ENT: No pertinent Hx Renal/: No pertinent Hx Endocrine: NIDDM Dermatology: No pertinent Hx Patient Family History: Arthritis FH: aneurysm G8 MOTHER G8 MOTHER FH: aneurysm G8 MOTHER G8 MOTHER Family history: Diabetes mellitus G8 MOTHER G8 FATHER Family history: Hypercholesterolemia (situation) G8 MOTHER G8 FATHER Family history: Hypertension G8 MOTHER (aneursym) G8 FATHER G8 FATHER Family history: Hypertension G8 MOTHER (aneursym) G8 FATHER G8 FATHER Stroke G8 MOTHER No Family History of: Family history: Blood disorder Family history: Cardiovascular disease Smoker: No Hx (Negative) Alocohol: None Drugs: None Lives with: With family Domestic Violence: Neg Review of Systems Constitutional: No symptom reported Ears, Nose, & Throat: No symptom reported Eyes: No symptom reported Pulmonary/Respiratory: Dyspnea Cardiovascular: Chest Pain Gastrointestinal: No symptom reported Genitourinary: No symptom reported Musculoskeletal: No symptom reported Skin: No symptom reported Psychiatric: No symptom reported Endocrine: No symptom reported Hemotologic/Lymphatic: No symptom reported H&P Exam Vital Signs Vital Signs Date Time Temp Pulse Resp B/P (MAP) Pulse Ox O2 Delivery O2 Flow Rate FiO2 11/12/24 00:17 61 11/11/24 21:01 99.0 12 145/95 (112) 95 General Appeara: Well developed, Well nourished, Normal Appearance Head Exam: Normal inspection Neck Exam: Normal inspection, Non-tender, Normal alignment Eye Exam: bilateral eye Normal inspection, bilateral eye PERRL, bilateral eye EOMI Ear Exam: bilateral ear Auricle normal Nasal Exam: Normal inspection Mouth: Normal Inspection Pulmonary/Respiratory: Normal inspection, Normal breath sounds, Chest non- tender, Lungs clear Cardiovascular/Chest: Normal inspection, Edema (bilateral lower extremity +2 pitting edema ), Regular rate, Normal Rhythm Peripheral Pulses: 2+ dorsalis pedis (R), 2+ dorsalis pedis (L), 2+ Radial (R), 2+ Radial (L) Abdominal Exam: Normal bowel sounds, Soft Rectal Exam: Deferred Back Exam: Normal inspection Legs: bilateral leg 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: Normal hearing, Normal speech, PERRL Motor/Sensory: Normal sensory function, Normal motor function Neuro/Mental St: Alert, Oriented Appearance: Appropriate appearance, Appropriate insight Eye contact/ Speech: Cooperative, Good eye contact, Normal speech Thoughts/Psych: Normal thought pattern Skin Exam: Normal inspection, Normal color, Warm/dry Labs/Xrays Labs Test 11/12/24 00:29 3/1/25 21:15 Range/Units White Blood Count 6.0 4.4-10.8 10^3/uL Red Blood Count 5.02 4.5-5.90 10^6/uL Hemoglobin 14.8 13.5-17.5 g/dL Hematocrit 45.9 41.0-53.0 % Mean Corpuscular Volume 91.5 80.0-100.0 fL Mean Corpuscular Hemoglobin 29.5 28.0-32.0 pg Mean Corpuscular Hemoglobin Concent 32.2 32.0-36.0 g/dL Red Cell Distribution Width 14.6 H 11.8-14.3 % Platelet Count 178 140-450 10^3/uL Mean Platelet Volume 9.1 6.9-10.8 fL Neutrophils (%) (Auto) 47.3 37.0-80.0 % Lymphocytes (%) (Auto) 37.3 10.0-50.0 % Monocytes (%) (Auto) 10.1 0.0-12.0 % Eosinophils (%) (Auto) 4.6 0.0-7.0 % Basophils (%) (Auto) 0.7 0.0-2.0 % Neutrophils # (Auto) 2.9 1.6-8.6 10 ^3/uL Lymphocytes # (Auto) 2.3 0.4-5.4 10 ^3/uL Monocytes # (Auto) 0.6 0-1.3 10 ^3/uL Eosinophils # (Auto) 0.3 0-0.8 10 ^3/uL Basophils # (Auto) 0 0-0.2 10 ^3/uL Nucleated Red Blood Cells 0.2 % Sodium Level 141 136-145 mmol/L Potassium Level 3.3 L 3.5-5.1 mmol/L Chloride Level 102 98-107 mmol/L Carbon Dioxide Level 28 20-31 mmol/L Anion Gap 11 5-15 Blood Urea Nitrogen 17 9-23 mg/dL Creatinine 0.99 0.700-1.30 mg/dL Glomerular Filtration Rate Calc 85 >90 mL/min BUN/Creatinine Ratio 17.2 10.0-20.0 Serum Glucose 125 H 74-106 mg/dL Calcium Level 8.9 8.7-10.4 mg/dL Assessment/Plan Problem List: (1) CHEST PAIN, UNSPECIFIED Plan This is a 64 yo male with an extensive cardiac history of hypertension, CAD, CHF, NC with cardiac stents, DM type 2, morbid obesity who presents with left sided chest pain radiating to left upper neck with associated dyspnea. Patient with a heart score of 6 1. Chest pain rule out NC 2. CHF without acute exacerbation 3. Hypertension 4. DM T2 Plan Admit Telemetry Cardiology consultation, 2D echocardiogram, serial troponin levels, ASA, Statin Continue home medications when reconciled Glucose monitoring ac & hs coverage with low dose regular insulin sliding scale Discussed all above with patient who verbalized agreement and understanding. Discussed assessment and care plan with supervising MD. Plan discussed with: Patient, Other Code Visit Code Visit Total Time (mins): 45 Additional Comments Additional Comments Additional Comments Patient was seen and evaluated by me. I agree with the assessment and plan as outlined by my nurse practitioner. ELLE PISANO Nov 12, 2024 01:05 VERONICA BASS MD Nov 12, 2024 17:18
[2024-11-12] MEDS: POTASSIUM CHL 20MEQ/100ML 100 ML IV ONE (02:06)
[2024-11-12] MEDS: ASPirin 81 mg TAB PO ONE (02:10)
[2024-11-12] MEDS: NITROGLYCERIN 0.4 MG SL TAB SL ONE (02:10)
[2024-11-12 02:12] VITALS: PULSE 89; RESP 16; O2SAT 97
--- NOTE | 2024-11-12 06:37 | ECG ---
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
--- NOTE | 2024-11-12 06:38 | ECG ---
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
[2024-11-12 07:45] VITALS: TEMP 97.9
[2024-11-12 08:38] VITALS: PULSE 77; RESP 19; O2SAT 96
[2024-11-12 09:53] LABS: Chloride 102 mmol/L (98-107); Sodium 141 mmol/L (136-145)
[2024-11-12 09:54] LABS: Anion Gap 10 (5-15); Carbon Dioxide 29 mmol/L (20-31)
[2024-11-12 09:55] LABS: Calcium 8.9 mg/dL (8.7-10.4)
[2024-11-12 09:59] LABS: BUN/Creatinine Ratio 17.6 (10.0-20.0); Blood Urea Nitrogen 15 mg/dL (9-23)
[2024-11-12 10:00] LABS: Glucose 111 mg/dL (74-106)
[2024-11-12 10:21] LABS: Magnesium 1.3 mg/dL (1.6-2.6)
[2024-11-12] MEDS: FUROSEMIDE 40 MG TAB PO SCH (11:34)
[2024-11-12] MEDS: FAMOTIDINE 20 MG TAB PO SCH (11:34)
[2024-11-12] MEDS: ASPirin 81 mg TAB PO SCH (11:35)
[2024-11-12] MEDS: ENOXAPARIN SOD 40 MG/0.4 ML SYRINGE SC SCH (11:35)
[2024-11-12 14:00] VITALS: O2SAT 91
[2024-11-12 14:48] LABS: Urine Bacteria None Seen /hpf (None Seen)
[2024-11-12 15:17] LABS: Urine Blood Negative /uL (Negative); Urine Clarity Clear (Clear); Urine Color Yellow (Yellow); Urine Hyaline Cast FEW /lpf (0 - 2); Urine Mucus FEW (None Seen); Urine Protein, UAD TRACE (Negative); Urine Specific Gravity 1.023 (1.001-1.035); Urine Squamous Epithelial Cell FEW /hpf (<5); Urine Urobilinogen 3 mg/dL (Negative); Urine WBC < 1 /HPF (0-3)
--- NOTE | 2024-11-12 16:25 | DVHSR ---
APPROVED REPORT EXAM: Two-dimensional and M-mode echocardiogram with Doppler and color Doppler. Blood Pressure: 119/84 mmHg INDICATION Chest Pain RISK FACTORS Obesity: Height: 6' 1", DIMENSIONS LVDd6.4 (3.8-5.7cm)LA (2D)4.3 (1.9-4.0cm)Aortic Root3.9 (2.0-3.7cm) LVDs6.0 (2.5-4.0cm)LA (MM) (1.9-4.0cm)Aortic Cusp Exc1.8 (1.5-2.0cm) EF (%) 15.0 (55-70%)Rt. Atrium4.6 (1.9-4.0cm)Asc. Aorta cm IVSd1.2 (0.7-1.1cm)RV (D) (1.8-2.4cm) PWd0.9 (0.7-1.1cm) Mitral Valve MitralMitral Stenosis E wave0.80m/sMV Mean GR.mmHg A wave0.10m/sMV Peak GR.mmHg E/A ratio8.02D MVAcm2 Aortic Valve Aortic ValveAortic Stenosis V10.50m/Justin Mean GR.5mmHg V21.50m/Justin Peak GR.9mmHg LVOT Diameter2.3 (1.8-2.4cm)Doppler AVA1.38cm2 AI P 1/2 Mvps519.49ms Pulmonic Valve V20.60m/s Conclusion Technically good study. Sinus rhythm. First-degree AV block. Left ventricular and biatrial enlargement. Mild aortic root enlargement. Mild aortic sclerosis. Mild mitral annular calcification. Good excursion of the mitral leaflets. T he tricuspid is structurally normal. Pulmonic is normal. Left ventricular function is diminished. EF is about 25% with severe global hypokinesis. Moderately diminished RV function. Mild aortic insufficiency. No pericardial effusion masses or vegetations.
[2024-11-12] MEDS: POTASSIUM CHL 20 Meq TABLET PO ONE (16:30)
[2024-11-12 18:00] VITALS: BP 130/93; PULSE 70; RESP 12
[2024-11-12] MEDS ORDERED: TAMSULOSIN HYDROCHLORIDE 0.4 MG CAP PO SCH (22:00)
[2024-11-12] MEDS ORDERED: ATORVASTATIN 20 MG TAB PO SCH (22:00)
--- NOTE | 2024-11-12 22:41 | DVHINCON2 ---
Date of service: Nov 12, 2024 Referring Physician Colby Reason for Consultation Chest pain History of Present Illness This is a 64-year-old male with a PMH of hypertension, diabetes, obesity, CAD, CHF, cardiac stents who presented to the ED with complaints of left sided chest pains, pressure, intermittent, unprovoked, radiating to his neck, associated with shortness of breath, diaphoresis and worsening bipedal edema for the past 2 days. Patient reports he is compliant with his home medications. Patient reports he uses supplemental home 02 as needed. Patient currently denies chest pain. Heart score was 6. K 3.1. Chest x-ray shows mild cardiomegaly. Troponin negative x3. 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 Patient was admitted to the hospital. I am asked to consult on this patient. Family History: Arthritis FH: aneurysm G8 MOTHER G8 MOTHER FH: aneurysm G8 MOTHER G8 MOTHER Family history: Diabetes mellitus G8 MOTHER G8 FATHER Family history: Hypercholesterolemia (situation) G8 MOTHER G8 FATHER Family history: Hypertension G8 MOTHER (aneursym) G8 FATHER G8 FATHER Family history: Hypertension G8 MOTHER (aneursym) G8 FATHER G8 FATHER Stroke G8 MOTHER No Family History of: Family history: Blood disorder Family history: Cardiovascular disease Allergies: Coded Allergies: NO KNOWN ALLERGIES (Unverified , 06/29/21) Home Meds Active Scripts Docusate Sodium (Colace) 100 Mg Cap, 1 CAP PO BID, #30 CAP Prov:RAMIRO HAMLIN MD 10/22/24 Hydrocodone-Acetaminophen (Hydrocodone Bitartrate/AC 5-325 mg) 1 Tab Tab, 1 TAB PO Q6HP PRN for 5 Days, #20 TAB Prov:RAMIRO HAMLIN MD 10/22/24 Acetaminophen W/ Codeine (Tylenol W/Cod #3) 1 Tab Tb, 1 TAB PO QIDPRN, #10 TAB 0 Refills Prov:ELVIN CARDENAS 11/10/23 Torsemide (Torsemide) 20 Mg Tab, 20 MG PO DAILY, #90 TAB Prov:EDWINA EATON MD 08/30/23 Clopidogrel Bisulfate (Plavix) 75 Mg Tab, 1 TAB PO DAILY, #90 TAB 3 Refills Prov:EDWINA EATON MD 08/30/23 Bumetanide (Bumetanide) 2 Mg Tab, 1 TAB PO DAILY, #90 TAB 1 Refill Prov:EDWINA EATON MD 08/30/23 Furosemide (Lasix) 40 Mg Tab, 40 MG PO DAILY, #90 TAB Prov:EDWINA EATON MD 08/30/23 Atorvastatin Calcium (Lipitor) 40 Mg Tab, 1 TAB PO QPM, #90 TAB 1 Refill Prov:EDWINA EATON MD 08/30/23 Aspirin (ASPIRIN 81) 81 Mg Tab, 81 MG PO DAILY, #90 TAB Prov:EDWINA EATON MD 08/30/23 Furosemide (Lasix) 40 Mg Tab, 40 MG PO DAILY for 30 Days, #30 TAB 1 Refill Prov:NAVEED GIRALDO DO 06/19/23 Clopidogrel Bisulfate (CLOPIDOGREL) 75 Mg Tab, 75 MG PO DAILY for 30 Days, #30 TAB 2 Refills Prov:NAVEED GIRALDO DO 06/19/23 Lisinopril (Lisinopril) 40 Mg Tab, 1 TAB PO DAILY for 30 Days, #30 TAB 5 Refills Prov:SEBASTIAN JONES MD 05/08/23 Potassium Chloride (POTASSIUM CHLORIDE CR) 10 Meq Tb, 10 MEQ PO BID for 30 Days, #60 TAB Prov:SEBASTIAN JONES MD 05/08/23 Methylprednisolone (Medrol Dosepak) 4 Mg Sincere, 4 MG PO UD, #21 TAB UAD Prov:JASVIR ESCALERA NP 10/11/22 Atorvastatin Calcium (ATORVASTATIN CALCIUM) 20 Mg Tab, 40 MG PO HS for 30 Days, #30 TAB 4 Refills Prov:VALENTÍN MARLOW MD 12/24/21 Bumetanide (Bumetanide) 2 Mg Tab, 1 TAB PO BID for 30 Days, #60 TAB 5 Refills Prov:VALENTÍN MARLOW MD 12/24/21 Aspirin (Aspirin Low Strength) 81 Mg Chw, 81 MG PO DAILY for 30 Days, #30 TAB.CHEW 4 Refills Prov:VALENTÍN MARLOW MD 12/24/21 Reported Medications Tamsulosin Hcl (Tamsulosin Hcl) 0.4 Mg Cap, 0.4 MG PO HS, CAP 08/24/19 Allopurinol (ZYLOPRIM TABLET) 300 Mg Tb, 300 MG PO DAILY 03/09/19 Current Medications Current Medications Medications (Trade) Dose Ordered Sig/Donnie Route PRN Reason Start Time Stop Time Status Last Admin Nitroglycerin (Ntrostat Sublingual) 0.4 mg Q5MINP PRN SL FOR CHEST PAIN 11/12/24 01:00 Morphine Sulfate 2 mg Q30M PRN IV FOR CHEST PAIN 11/12/24 01:00 Ondansetron HCl (Zofran) 4 mg Q6HPRN PRN IV NAUSEA / VOMITING 11/12/24 01:00 Famotidine (Pepcid Tablet) 20 mg BID PO 11/12/24 10:00 11/12/24 11:34 Enoxaparin Sodium (Lovenox) 40 mg DAILY SC 11/12/24 10:00 11/12/24 11:35 Atorvastatin Calcium (Lipitor) 40 mg HS PO 11/12/24 22:00 Aspirin 81 mg DAILY PO 11/12/24 10:00 11/12/24 11:35 Acetaminophen (Tylenol Tablet) 650 mg Q6HPRN PRN PO PAIN SCALE 1-3 OR TEMP>100.4 11/12/24 01:00 Acetaminophen/ Hydrocodone Bitart ([place] 5/325MG Tab) 1 tab Q6HPRN PRN PO PAIN SCALE 1 THRU 6 11/12/24 01:00 Furosemide (Lasix Tablet) 40 mg DAILY PO 11/12/24 10:00 11/12/24 11:34 Tamsulosin HCl (Flomax) 0.4 mg HS PO 11/12/24 22:00 Review of Systems Constitutional: reports: fatigue, malaise, weakness; denies: chills, diaphoresis, fever, sweats, others EENTM: denies: blurred vision, double vision, ear bleeding, ear discharge, ear drainage, ear pain, ear ringing, eye pain, eye redness, hearing loss, mouth pain, mouth swelling, nasal discharge, nose bleeding, nose congestion, nose pain, photophobia, tearing, throat pain, throat swelling, voice changes, others Respiratory: reports: orthopnea, SOB at rest, shortness of breath, SOB with excertion; denies: cough, hemoptysis, stridor, wheezing, others Cardiovascular: reports: chest pain, dizzy spells, diaphoresis, Dyspnea on exertion, edema; denies: irregular heart beat, left arm pain, lightheadedness, palpitations, PND, syncope, others Gastrointestinal: denies: abdomen distended, abdominal pain, blood streaked bowels, constipated, diarrhea, dysphagia, difficulty swallowing, hematemesis, melena, nausea, poor appetite, poor fluid intake, rectal bleeding, rectal pain, vomiting, others Genitourinary: denies: burning, dysuria, flank pain, frequency, hematuria, incontinence, penile discharge, penile sore, pain, testicle pain, testicle swelling, urgency, others Neurological: denies: dizziness, fainting, headache, left sided numbness, left sided weakness, numbness, paresthesia, pre-existing deficit, right sided numbness, right sided weakness, seizure, speech problems, tingling, tremors, weakness, others Musculoskeletal: denies: back pain, gout, joint pain, joint swelling, muscle pain, muscle stiffness, neck pain, others Integumetry: denies: bruises, change in color, change in hair/nails, dryness, laceration, lesions, lumps, rash, wounds, others Allergic/Immunocompromised: denies: Difficulty Healing, Frequent Infections, Hives, Itching, others Hematologic/Lymphatic: denies: anemia, blood clots, easy bleeding, easy bruising, swollen glands, others Endocrine: denies: excessive hunger, excessive sweating, excessive thirst, excessive urination, flushing, intolerance to cold, intolerance to heat, unexplained weight gain, unexplained weight loss, others Psychiatric: denies: anxiety, bipolar disorder, depression, hopeless, panic disorder, schizophrenia, sleepless, suicidal, others Vital Signs Vital Signs Date Time Temp Pulse Resp B/P (MAP) Pulse Ox O2 Delivery O2 Flow Rate FiO2 11/12/24 11:34 107/78 11/12/24 10:00 61 15 94 11/12/24 08:38 Room Air* 0 21 11/12/24 07:45 97.9 97.9 Physical Exam GENERAL: Awake, alert, oriented. Obese. LUNGS: Clear. CARDIOVASCULAR: Heart sounds are good. ABDOMEN: Soft. Labs/Diagnostic Data Labs Test 11/12/24 08:44 11/12/24 00:29 11/11/24 21:15 Range/Units Sodium Level 141 136-145 mmol/L Potassium Level 3.0 L 3.5-5.1 mmol/L Chloride Level 102 98-107 mmol/L Carbon Dioxide Level 29 20-31 mmol/L Anion Gap 10 5-15 Blood Urea Nitrogen 15 9-23 mg/dL Creatinine 0.85 0.700-1.30 mg/dL Glomerular Filtration Rate Calc 96 >90 mL/min BUN/Creatinine Ratio 17.6 10.0-20.0 Serum Glucose 111 H 74-106 mg/dL Calcium Level 8.9 8.7-10.4 mg/dL Magnesium Level 1.3 L 1.6-2.6 mg/dL Troponin I High Sensitivity 25 </=54 ng/L White Blood Count 6.0 4.4-10.8 10^3/uL Red Blood Count 5.02 4.5-5.90 10^6/uL Hemoglobin 14.8 13.5-17.5 g/dL Hematocrit 45.9 41.0-53.0 % Mean Corpuscular Volume 91.5 80.0-100.0 fL Mean Corpuscular Hemoglobin 29.5 28.0-32.0 pg Mean Corpuscular Hemoglobin Concent 32.2 32.0-36.0 g/dL Red Cell Distribution Width 14.6 H 11.8-14.3 % Platelet Count 178 140-450 10^3/uL Mean Platelet Volume 9.1 6.9-10.8 fL Neutrophils (%) (Auto) 47.3 37.0-80.0 % Lymphocytes (%) (Auto) 37.3 10.0-50.0 % Monocytes (%) (Auto) 10.1 0.0-12.0 % Eosinophils (%) (Auto) 4.6 0.0-7.0 % Basophils (%) (Auto) 0.7 0.0-2.0 % Neutrophils # (Auto) 2.9 1.6-8.6 10 ^3/uL Lymphocytes # (Auto) 2.3 0.4-5.4 10 ^3/uL Monocytes # (Auto) 0.6 0-1.3 10 ^3/uL Eosinophils # (Auto) 0.3 0-0.8 10 ^3/uL Basophils # (Auto) 0 0-0.2 10 ^3/uL Nucleated Red Blood Cells 0.2 % Assessment Chest pain. CHF without acute exacerbation. Hypertension. DM T2. Plan/Recommendation I agree with your ongoing assessment and care of plan. Telemetry reviewed. Echocardiogram. Aspirin, Lipitor. Diuretics with Lasix. Morphine and [place] for pain management. Additional plan as per the hospital course. A total of 45 minutes was spent reviewing the patient record, examining the patient, making a diagnostic and therapeutic plan, discussing this plan with medical personnel, following up on diagnostic studies and following the patient for clinical stability excluding any and all procedures. At least 50% of this time was spent in direct, [id number] contact. Plan discussed with: Patient LAURITA GOODEN MD Nov 12, 2024 12:56
--- NOTE | 2024-11-14 14:21 | ECG ---
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
== END 2024-11-12 18:35 | disposition home or self-care (01) | DRG 206 ==
LOC: ER 21:01 → OVERFLOW 11-12 00:48
PROVIDERS: ADMIT Nurse Practitioner Family; ATTEND Nurse Practitioner Family
DX: M94.0 Chondrocostal junction syndrome [Tietze] (principal); Z68.41 Body mass index [BMI] 40.0-44.9, adult; E11.9 Type 2 diabetes mellitus without complications; I50.9 Heart failure, unspecified; J44.9 Chronic obstructive pulmonary disease, unspecified; I11.0 Hypertensive heart disease with heart failure; E66.01 Morbid (severe) obesity due to excess calories; M10.9 Gout, unspecified; F17.210 Nicotine dependence, cigarettes, uncomplicated; Z79.891 Long term (current) use of opiate analgesic; Z79.899 Other long term (current) drug therapy; Z79.1 Long term (current) use of non-steroidal anti-inflammatories (NSAID); Z79.82 Long term (current) use of aspirin; Z79.84 Long term (current) use of oral hypoglycemic drugs; Z83.3 Family history of diabetes mellitus; I25.10 Atherosclerotic heart disease of native coronary artery without angina pectoris; Z82.49 Family history of ischemic heart disease and other diseases of the circulatory system; Z82.3 Family history of stroke; Z83.49 Family history of other endocrine, nutritional and metabolic diseases; Z95.5 Presence of coronary angioplasty implant and graft; Z82.61 Family history of arthritis
CPT/HCPCS: 36415; 71046; 80048; 81001; 83735; 84484; 85025; 93005; 93306; 96372; 99291; G0378

== ENCOUNTER 2024-11-21 23:53 | Inpatient (IN) | payer OTHER ==
[~2024-11-21] VITALS: Ht 185.4 cm; Wt 143.6 kg
[2024-11-22] VITALS (14 sets, daily range): BP systolic 97–135; BP diastolic 66–91; PULSE 58–81; RESP 16–21; TEMP 97.6–98.4; O2SAT 93–100
--- NOTE | 2024-11-22 00:40 | ED.PDOC ---
History of Present Illness HPI Comments 64-year-old male presents with complaint of shortness a breath with exertion and productive cough and congestion, today. Patient comments on 3 day onset of symptoms. He reports being unable to walk several eat before becoming short of breath. He has reported history that includes: angina, CAD, CHF, COPD, DM, gout, HLD, HTN, NM, PTCA, morbid obesity, and tobacco abuse. Patient also reports noticing his legs being more swollen than usual, lately. He denies having any chest pain, fever, chills, nausea, vomiting, or associated symptoms at this time. Chief Complaint: Shortness of Breath Time Seen by MD: 04:00 Primary Care Provider: ISABEL Reviewed Notes: Nurses Notes, Medications, Allergies Allergies: Coded Allergies: NO KNOWN ALLERGIES (Unverified , 06/29/21) Home Meds Active Scripts Docusate Sodium (Colace) 100 Mg Cap, 1 CAP PO BID, #30 CAP Prov:RAMIRO HAMLIN MD 10/22/24 Hydrocodone-Acetaminophen (Hydrocodone Bitartrate/AC 5-325 mg) 1 Tab Tab, 1 TAB PO Q6HP PRN for 5 Days, #20 TAB Prov:RAMIRO HAMLIN MD 10/22/24 Acetaminophen W/ Codeine (Tylenol W/Cod #3) 1 Tab Tb, 1 TAB PO QIDPRN, #10 TAB 0 Refills Prov:ELVIN CARDENAS 11/10/23 Torsemide (Torsemide) 20 Mg Tab, 20 MG PO DAILY, #90 TAB Prov:EDWINA EATON MD 08/30/23 Clopidogrel Bisulfate (Plavix) 75 Mg Tab, 1 TAB PO DAILY, #90 TAB 3 Refills Prov:EDWINA EATON MD 08/30/23 Bumetanide (Bumetanide) 2 Mg Tab, 1 TAB PO DAILY, #90 TAB 1 Refill Prov:EDWINA EATON MD 08/30/23 Furosemide (Lasix) 40 Mg Tab, 40 MG PO DAILY, #90 TAB Prov:EDWINA EATON MD 08/30/23 Atorvastatin Calcium (Lipitor) 40 Mg Tab, 1 TAB PO QPM, #90 TAB 1 Refill Prov:EDWINA EATON MD 08/30/23 Aspirin (ASPIRIN 81) 81 Mg Tab, 81 MG PO DAILY, #90 TAB Prov:EDWINA EATON MD 08/30/23 Furosemide (Lasix) 40 Mg Tab, 40 MG PO DAILY for 30 Days, #30 TAB 1 Refill Prov:NAVEED GIRALDO DO 06/19/23 Clopidogrel Bisulfate (CLOPIDOGREL) 75 Mg Tab, 75 MG PO DAILY for 30 Days, #30 TAB 2 Refills Prov:NAVEED GIRALDO DO 06/19/23 Lisinopril (Lisinopril) 40 Mg Tab, 1 TAB PO DAILY for 30 Days, #30 TAB 5 Refills Prov:SEBASTIAN CRUZ MD 05/08/23 Potassium Chloride (POTASSIUM CHLORIDE CR) 10 Meq Tb, 10 MEQ PO BID for 30 Days, #60 TAB Prov:SEBASTIAN CRUZ MD 05/08/23 Methylprednisolone (Medrol Dosepak) 4 Mg Sincere, 4 MG PO UD, #21 TAB UAD Prov:JASVIR ESCALERA NP 10/11/22 Atorvastatin Calcium (ATORVASTATIN CALCIUM) 20 Mg Tab, 40 MG PO HS for 30 Days, #30 TAB 4 Refills Prov:VALENTÍN MARLOW MD 12/24/21 Bumetanide (Bumetanide) 2 Mg Tab, 1 TAB PO BID for 30 Days, #60 TAB 5 Refills Prov:VALENTÍN MARLOW MD 12/24/21 Aspirin (Aspirin Low Strength) 81 Mg Chw, 81 MG PO DAILY for 30 Days, #30 TAB.CHEW 4 Refills Prov:VALENTÍN MARLOW MD 12/24/21 Reported Medications Tamsulosin Hcl (Tamsulosin Hcl) 0.4 Mg Cap, 0.4 MG PO HS, CAP 08/24/19 Allopurinol (ZYLOPRIM TABLET) 300 Mg Tb, 300 MG PO DAILY 03/09/19 Information Source: Patient Mode of Arrival: Wheelchair Severity: Moderate Duration: Since onset Prehospital treatment: None Review of Systems: REVIEW OF SYSTEMS: No fever, no chills, or fatigue HEENT: No sore throat, no earache, congestion, no neck pain. Cardiac: No chest pain. No palpitations. Lungs: SOB, cough GI: No nausea, no vomiting, no diarrhea, no constipation, no abdominal pain : No dysuria, frequency, or urgency. No hematuria. Musculoskeletal: No joint pain , no joint swelling, no extremity edema. Skin: No rash, no itching. Neuro: No headache, no dizziness, no weakness Vital Signs Vital Signs Date Time Temp Pulse Resp B/P (MAP) Pulse Ox O2 Delivery O2 Flow Rate FiO2 11/22/24 05:26 148/107 11/22/24 05:18 20 96 Nasal Cannula* 2 28 11/22/24 05:09 98.7 76 98.7 Physical Exam General: Awake, alert and oriented. No acute distress. Skin: Skin in warm, dry and intact. Appropriate color for ethnicity. HEENT: The head is normocephalic and atraumatic. Conjunctivae are clear without exudates or hemorrhage. Sclera is non-icteric. EOM are intact. No signs of nystagmus. Eyelids are normal in appearance without swelling or lesions. Oral mucosa is pink and moist Neck: The neck is supple with normal range of motion. No JVD. Cardiac: Heart rate and rhythm are normal. No murmurs, gallops, or rubs are auscultated. Respiratory: Rales at the bases, bilaterally. No signs of respiratory distress. Lung sounds are clear in all lobes bilaterally without, rhonchi, or wheezes. Abdominal: Abdomen is soft, non-tender without distention. Bowel sounds are present and normoactive in all four quadrants. Extremities: Bilateral pitting edema. Upper extremities are atraumatic in appearance without deformity or edema. Neurological: The patient is awake, alert and oriented to person, place, and time with normal speech. Speech is clear. There is no facial asymmetry. Psychiatric: Appropriate mood and affect. Good judgement and insight. No visual or auditory hallucinations. Past Medical History PAST MEDICAL HISTORY: Angina, CAD, CHF, COPD, DM, Gout, High Lipids, HTN, NM Surgical History: PTCA, Tonsillectomy Family History Family History: Reviewed,noncontributory to illness Social History Smoker: Cigarettes, Less Than 1 Pack/Day Alcohol: Occasionally Drugs: Denies Drug Use Lives In: Home Was a procedure done? Was a procedure done?: No EKG EKG : Pulse Rate (adult): 88 [place]: Normal Cardiac Rhythm: NSR Block: None Hypertrophy: None ST: Normal Differential Dx Considerations may include: Differential diagnoses considered includebut arenot limited to acute Bronchitis, Asthma, COPD, Pneumothorax, PE, CHF, Pulmonary HTN, Anemia, CO Poisoning, Methemoglobinemia, Hyperventilation, Metabolic Acidosis, Pulmonary Edema, Pneumonia, ACS, Pericardial Tamponade, Anxiety, other X-Ray, Labs, Meds, VS Vital Signs Date Time Temp Pulse Resp B/P (MAP) Pulse Ox O2 Delivery O2 Flow Rate FiO2 11/22/24 05:26 148/107 11/22/24 05:18 20 96 Nasal Cannula* 2 28 11/22/24 05:09 98.7 76 20 130/89 (103) 99 98.7 11/22/24 00:40 88 11/22/24 00:16 99.2 84 22 132/93 (106) 96 11/21/24 23:59 88 Lab Test 11/22/24 05:13 11/22/24 04:40 11/22/24 03:02 11/22/24 01:58 Range/Units Influenza Type A Antigen Pending Influenza Type B Antigen Pending SARS-CoV-2 Antigen (Rapid) Pending Troponin I High Sensitivity 30 28 31 </=54 ng/L White Blood Count 6.1 4.4-10.8 10^3/uL Red Blood Count 4.38 L 4.5-5.90 10^6/uL Hemoglobin 13.6 13.5-17.5 g/dL Hematocrit 40.7 L 41.0-53.0 % Mean Corpuscular Volume 92.8 80.0-100.0 fL Mean Corpuscular Hemoglobin 31.0 28.0-32.0 pg Mean Corpuscular Hemoglobin Concent 33.4 32.0-36.0 g/dL Red Cell Distribution Width 14.9 H 11.8-14.3 % Platelet Count 172 140-450 10^3/uL Mean Platelet Volume 8.8 6.9-10.8 fL Neutrophils (%) (Auto) 58.1 37.0-80.0 % Lymphocytes (%) (Auto) 25.6 10.0-50.0 % Monocytes (%) (Auto) 11.5 0.0-12.0 % Eosinophils (%) (Auto) 4.2 0.0-7.0 % Basophils (%) (Auto) 0.6 0.0-2.0 % Neutrophils # (Auto) 3.6 1.6-8.6 10 ^3/uL Lymphocytes # (Auto) 1.6 0.4-5.4 10 ^3/uL Monocytes # (Auto) 0.7 0-1.3 10 ^3/uL Eosinophils # (Auto) 0.3 0-0.8 10 ^3/uL Basophils # (Auto) 0 0-0.2 10 ^3/uL Nucleated Red Blood Cells 0.1 % Sodium Level 141 136-145 mmol/L Potassium Level 3.5 3.5-5.1 mmol/L Chloride Level 104 98-107 mmol/L Carbon Dioxide Level 31 20-31 mmol/L Anion Gap 6 5-15 Blood Urea Nitrogen 14 9-23 mg/dL Creatinine 0.86 0.700-1.30 mg/dL Glomerular Filtration Rate Calc 96 >90 mL/min BUN/Creatinine Ratio 16.3 10.0-20.0 Serum Glucose 106 74-106 mg/dL Calcium Level 9.6 8.7-10.4 mg/dL Total Bilirubin 0.6 0.2-1.0 mg/dL Aspartate Amino Transferase (AST) 16 13-40 U/L Alanine Aminotransferase (ALT) 21 7-40 U/L Alkaline Phosphatase 76 46-116 U/L B-Type Natriuretic Peptide 1038.99 0-100 pg/mL Total Protein 7.4 5.7-8.2 g/dL Albumin 4.3 3.2-4.8 g/dL Current Medications Medications (Trade) Dose Ordered Sig/Donnie Route Start Time Stop Time Status Last Admin Furosemide (Lasix Injection) 40 mg ONCE ONCE IV 11/22/24 04:30 11/22/24 04:31 DC 11/22/24 05:26 [place] [address] Ph: [phone] DIAGNOSTIC IMAGING Diagnostic Imaging Report : [id number] Signed PATIENT: SANA OTERO ACCT: [id number] UNIT: [id number] : 1960 LOC: ER ROOM / BED: / AGE / SEX: 64 / M ADM STATUS: REG ER SERVICE 0148 ORDERING PHYSICIAN: ASHLEY MCCAULEY MD PROCEDURE(s): CXR2 - CHEST TWO VIEWS ROUTINE REASON: Shortness of breath ORDER NUMBER(s): [id number], ACCESSION NUMBER(s): [id number] CHEST RADIOGRAPH Indication: Shortness of breath Technique: 2 views of the chest were obtained. Comparison: XY CHEST TWO VIEWS ROUTINE on DOS: 11/11/24, CXR2 on DOS: 01/24/22 IMPRESSION: Heart is enlarged. There is moderate pulmonary vascular congestion. No focal airspace opacity, sizeable effusion, or pneumothorax. ATED BY: TONI MORA MD DICTATED DATE/TIME: 11/22/24224 SIGNED BY: TONI MORA MD SIGNED DATE/TIME: 11/22/24224 CC: Time of 1ST Reevaluation: 04:30 Reevaluation 1ST: Unchanged Patient Education/Counseling: Treatment, Need For Follow Up Family Education/Counseling: No Family Present Departure 1 Departure Time of Disposition: 05:58 Impression: Primary Impression: Acute exacerbation of CHF (congestive heart failure) Additional Impression: Hypertension Disposition: ADMITTED INPATIENT Condition: Stable Comments 64-year-old male with worsening severe dyspnea on exertion and CHF exacerbation. Past medical history includes history of coronary artery disease CHF, hypertension, COPD. Case Discussed with morris Chirinos @ 05:54 with request for admission. She will see patient in the ED. Patient to be for further treatment, evaluation and monitoring. Extensive evaluation was performed in attempt to identify or rule out: (See differential diagnosis section) The following tests were ordered, and results were reviewed by me: (See diagnostic results section) The following test were independently interpreted by me: EKG I reviewed and agreed with the following test results read by other providers: Chest x-ray I reviewed the following notes from the pt's past medical encounters: November 12, 2024 encounter for chest pain, r/o NM Additional information was gathered from interviewing the following independent historians: N/A Discussion of management or test interpretation with external physician/other qualified health vocational childcare teacher: N/A Addressed an acute or chronic illness that poses a threat to life or bodily function: CHF exacerbation Decision regarding hospitalization or escalation of hospital level of care: Risk and benefits of admission for further treatment of patient's condition was considered. Due to patient's current clinical condition, high risk of decline and poor outcome if discharged and need for further inpatient management and monitoring, patient will be admitted to the hospital. Drug therapy requiring intensive monitoring for toxicity: IV furosemide Parenteral controlled substances: N/A Decision regarding elective major surgery with identified patient or procedure risk factors: N/A Decision regarding emergency major surgery: N/A Decision not to resuscitate or to de-escalate care because of poor prognosis: N/A Diagnosis or treatment significantly limited by social determinants of health: N/A Critical Care Note Critical Care Time?: No Stability Stability form required: No Heart Score Heart Score: Heart Score Response (Comments) Value History Slightly Suspicious 0 EKG Normal 0 Age >65 2 Risk Factors >3 or Hx ASHD 2 Troponin Normal limit 0 Total 4 I personally scribed for ASHLEY MCCAULEY MD ([email or web address]) on 11/22/24 at 00:40. Electronically submitted by Rogerio Cruz ([email or web address]). I personally scribed for ASHLEY MCCAULEY MD ([email or web address]) on 11/22/24 at 05:13. Electronically submitted by Rogerio Cruz ([email or web address]). I personally scribed for ASHLEY MCCAULEY MD ([email or web address]) on 11/22/24 at 05:31. El ectronically submitted by Rogerio Cruz ([email or web address]). ASHLEY MCCAULEY MD Nov 22, 2024 00:40
[2024-11-22 02:20] LABS: Basophils # (auto) 0 10 ^3/uL (0-0.2); Basophils % (auto) 0.6 % (0.0-2.0); Eosinophils # (auto) 0.3 10 ^3/uL (0-0.8); Eosinophils % (auto) 4.2 % (0.0-7.0); Hematocrit 40.7 % (41.0-53.0); Hemoglobin 13.6 g/dL (13.5-17.5); Lymphocytes # (auto) 1.6 10 ^3/uL (0.4-5.4); Lymphocytes % (auto) 25.6 % (10.0-50.0); Mean Corpuscular Hgb Conc. 33.4 g/dL (32.0-36.0); Mean Corpuscular Volume 92.8 fL (80.0-100.0); Monocytes # (auto) 0.7 10 ^3/uL (0-1.3); Monocytes % (auto) 11.5 % (0.0-12.0); Neutrophils # (auto) 3.6 10 ^3/uL (1.6-8.6); Neutrophils % (auto) 58.1 % (37.0-80.0); Nucleated Red Blood Cells % 0.1 %; Platelet Count (auto) 172 10^3/uL (140-450); Red Blood Cells 4.38 10^6/uL (4.5-5.90); Red Cell Distribution Width 14.9 % (11.8-14.3); White Blood Cell 6.1 10^3/uL (4.4-10.8)
--- NOTE | 2024-11-22 02:27 | DVH ---
CHEST RADIOGRAPH Indication: Shortness of breath Technique: 2 views of the chest were obtained. Comparison: XY CHEST TWO VIEWS ROUTINE on DOS: 11/11/24, CXR2 on DOS: 01/24/22 IMPRESSION: Heart is enlarged. There is moderate pulmonary vascular congestion. No focal airspace opacity, sizeab le effusion, or pneumothorax.
[2024-11-22 02:35] LABS: Alanine Aminotransferase 21 U/L (7-40); Albumin 4.3 g/dL (3.2-4.8); Alkaline Phosphatase 76 U/L (46-116); Anion Gap 6 (5-15); Aspartate Aminotransferase 16 U/L (13-40); BUN/Creatinine Ratio 16.3 (10.0-20.0); Bilirubin, Total 0.6 mg/dL (0.2-1.0); Blood Urea Nitrogen 14 mg/dL (9-23); Calcium 9.6 mg/dL (8.7-10.4); Chloride 104 mmol/L (98-107); Glucose 106 mg/dL (74-106); Potassium 3.5 mmol/L (3.5-5.1); Sodium 141 mmol/L (136-145); Total Protein 7.4 g/dL (5.7-8.2)
[2024-11-22 02:36] LABS: Carbon Dioxide 31 mmol/L (20-31)
[2024-11-22] MEDS: FUROSEMIDE 40 MG/4 ML VIAL IV ONE (05:26)
[2024-11-22 06:13] LABS: Rapid Influenza A Negative (Negative); Rapid Influenza B Negative (Negative)
[2024-11-22 06:14] LABS: COVID19 ANTIGEN SOFIA FIA NEGATIVE (NEGATIVE)
[2024-11-22 06:14] LABS: Base Excess 3.6 mmol/L (-2.0-3.0)
[2024-11-22] MEDS ORDERED: ONDANSETRON HCL 4 MG/2 ML VIAL IV PRN (08:00)
[2024-11-22] MEDS ORDERED: MORPHINE SULFATE INJ 2 MG/ml SYRG IV PRN (08:00)
[2024-11-22] MEDS ORDERED: NITROGLYCERIN 0.4 MG SL TAB SL PRN (08:00)
[2024-11-22] MEDS ORDERED: ACETAMINOPHEN 325 MG TAB PO PRN (08:00)
[2024-11-22] MEDS ORDERED: DEXTROSE (50%) 50ML SYRG IV PRN (08:00)
--- NOTE | 2024-11-22 08:03 | DVHHP2 ---
Admitting Diagnosis: acute chf exacerbation History of Present Illness History Source: Patient Exam Limitations: No limitations HPI Mr. David Layton is a 64-year-old male presents with complaint of shortness a breath with exertion and productive cough and congestion, today. Patient comments on 3 day onset of symptoms. He reports being unable to walk several eat before becoming short of breath. He has reported history that includes: angina, CAD, CHF, COPD, DM, gout, HLD, HTN, CA, PTCA, morbid obesity, and tobacco abuse. Patient reports 2L [place] home oxygen use , exertional dyspnea despite home oxygen use. Patient found to have moderate vascular congestion on C XR radiology report. Patient admitted for further evaluation and treatment. Home Meds Active Scripts Docusate Sodium (Colace) 100 Mg Cap, 1 CAP PO BID, #30 CAP Prov:RAMIRO HAMLIN MD 10/22/24 Hydrocodone-Acetaminophen (Hydrocodone Bitartrate/AC 5-325 mg) 1 Tab Tab, 1 TAB PO Q6HP PRN for 5 Days, #20 TAB Prov:RAMIRO HAMLIN MD 10/22/24 Acetaminophen W/ Codeine (Tylenol W/Cod #3) 1 Tab Tb, 1 TAB PO QIDPRN, #10 TAB 0 Refills Prov:ELVIN CARDENAS 11/10/23 Torsemide (Torsemide) 20 Mg Tab, 20 MG PO DAILY, #90 TAB Prov:EDWINA EATON MD 08/30/23 Clopidogrel Bisulfate (Plavix) 75 Mg Tab, 1 TAB PO DAILY, #90 TAB 3 Refills Prov:EDWINA EATON MD 08/30/23 Bumetanide (Bumetanide) 2 Mg Tab, 1 TAB PO DAILY, #90 TAB 1 Refill Prov:EDWINA EATON MD 08/30/23 Furosemide (Lasix) 40 Mg Tab, 40 MG PO DAILY, #90 TAB Prov:EDWINA EATON MD 08/30/23 Atorvastatin Calcium (Lipitor) 40 Mg Tab, 1 TAB PO QPM, #90 TAB 1 Refill Prov:EDWINA EATON MD 08/30/23 Aspirin (ASPIRIN 81) 81 Mg Tab, 81 MG PO DAILY, #90 TAB Prov:EDWINA EATON MD 08/30/23 Furosemide (Lasix) 40 Mg Tab, 40 MG PO DAILY for 30 Days, #30 TAB 1 Refill Prov:NAVEED GIRALDO DO 06/19/23 Clopidogrel Bisulfate (CLOPIDOGREL) 75 Mg Tab, 75 MG PO DAILY for 30 Days, #30 TAB 2 Refills Prov:NAVEED GIRALDO DO 06/19/23 Lisinopril (Lisinopril) 40 Mg Tab, 1 TAB PO DAILY for 30 Days, #30 TAB 5 Refills Prov:SEBASTIAN JONES MD 05/08/23 Potassium Chloride (POTASSIUM CHLORIDE CR) 10 Meq Tb, 10 MEQ PO BID for 30 Days, #60 TAB Prov:SEBASTIAN JONES MD 05/08/23 Methylprednisolone (Medrol Dosepak) 4 Mg Sincere, 4 MG PO UD, #21 TAB UAD Prov:JASVIR ESCALERA NP 10/11/22 Atorvastatin Calcium (ATORVASTATIN CALCIUM) 20 Mg Tab, 40 MG PO HS for 30 Days, #30 TAB 4 Refills Prov:VALENTÍN MARLOW MD 12/24/21 Bumetanide (Bumetanide) 2 Mg Tab, 1 TAB PO BID for 30 Days, #60 TAB 5 Refills Prov:VALENTÍN MARLOW MD 12/24/21 Aspirin (Aspirin Low Strength) 81 Mg Chw, 81 MG PO DAILY for 30 Days, #30 TA B.CHEW 4 Refills Prov:VALENTÍN MARLOW MD 12/24/21 Reported Medications Tamsulosin Hcl (Tamsulosin Hcl) 0.4 Mg Cap, 0.4 MG PO HS, CAP 08/24/19 Allopurinol (ZYLOPRIM TABLET) 300 Mg Tb, 300 MG PO DAILY 03/09/19 Past Medical History Cardiac: CAD, CHF, HTN, CA (with cardiac stents) Pulmonary: No pertinent Hx Central Nervous System: No pertinent Hx GI: No pertinent Hx Hemotology/Oncology: No pertinent Hx Hepatobiliary: No pertinent Hx Psychiatric: No pertinent Hx Musculoskeletal: No pertinent Hx Rheumotologic: No pertinent Hx Infectious Disease: No peritnent Hx ENT: No pertinent Hx Renal/: No pertinent Hx Endocrine: NIDDM Dermatology: No pertinent Hx Patient Family History: Arthritis FH: aneurysm G8 MOTHER G8 MOTHER FH: aneurysm G8 MOTHER G8 MOTHER Family history: Diabetes mellitus G8 MOTHER G8 FATHER Family history: Hypercholesterolemia (situation) G8 MOTHER G8 FATHER Family history: Hypertension G8 MOTHER (aneursym) G8 FATHER G8 FATHER Family history: Hypertension G8 MOTHER (aneursym) G8 FATHER G8 FATHER Stroke G8 MOTHER No Family History of: Family history: Blood disorder Family history: Cardiovascular disease Smoker: <1 pack per day Alocohol: None Drugs: None Domestic Violence: Neg Review of Systems Constitutional: No symptom reported Ears, Nose, & Throat: No symptom reported Eyes: No symptom reported Pulmonary/Respiratory: Dyspnea, Cough Cardiovascular: No symptom reported Gastrointestinal: No symptom reported Genitourinary: No symptom reported Musculoskeletal: No symptom reported Skin: No symptom reported Psychiatric: No symptom reported Endocrine: No symptom reported Hemotologic/Lymphatic: No symptom reported All Other Systems leg swelling bilateral H&P Exam Vital Signs Vital Signs Date Time Temp Pulse Resp B/P (MAP) Pulse Ox O2 Delivery O2 Flow Rate FiO2 11/22/24 07:38 81 16 98 Nasal Cannula* 2 28 11/22/24 07:22 98.3 120/97 (105) 98.3 General Appeara: Well developed, Well nourished, Normal Appearance Head Exam: Normal inspection Neck Exam: Normal inspection, Non-tender, Normal alignment Eye Exam: bilateral eye Normal inspection, bilateral eye PERRL, bilateral eye EOMI Ear Exam: bilateral ear Auricle normal Nasal Exam: Normal inspection Mouth: Normal Inspection Pulmonary/Respiratory: Normal inspection, Chest non-tender, Crackles Cardiovascular/Chest: Normal inspection, Regular rate, Normal Rhythm Peripheral Pulses: 2+ dorsalis pedis (R), 2+ dorsalis pedis (L), 2+ Radial (R), 2+ Radial (L) Abdominal Exam: Normal bowel sounds, Soft, No tenderness Rectal Exam: Deferred Back Exam: Normal inspection Legs: bilateral leg swelling (+1 pitting edema) [employer]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0 mmHg Arterial Blood Partial Pressure O2 103.6 83.0-108.0 mmHg Arterial Blood HCO3 28.9 H 21.0-28.0 mmol/L Arterial Blood Oxygen Saturation 97.3 94.0-98.0 % Arterial Blood Base Excess 3.6 H -2.0-3.0 mmol/L Arterial Blood Oxyhemoglobin 95.9 94.0-98.0 % Arterial Blood Carboxyhemoglobin 0.8 0.5-1.5 % Arterial Blood Methemoglobin 0.6 0.0-1.5 % Garcia Test Yes Blood Gas Total Hemoglobin 14.50 13.5-17.5 g/dL Blood Gas Liter Flow 2.00 Blood Gas Modality Nasal cannula FiO2 % 28.0 Influenza Type A Antigen Negative Negative Influenza Type B Antigen Negative Negative SARS-CoV-2 Antigen (Rapid) Negative NEGATIVE Troponin I High Sensitivity 30 </=54 ng/L White Blood Count 6.1 4.4-10.8 10^3/uL Red Blood Count 4.38 L 4.5-5.90 10^6/uL Hemoglobin 13.6 13.5-17.5 g/dL Hematocrit 40.7 L 41.0-53.0 % Mean Corpuscular Volume 92.8 80.0-100.0 fL Mean Corpuscular Hemoglobin 31.0 28.0-32.0 pg Mean Corpuscular Hemoglobin Concent 33.4 32.0-36.0 g/dL Red Cell Distribution Width 14.9 H 11.8-14.3 % Platelet Count 172 140-450 10^3/uL Mean Platelet Volume 8.8 6.9-10.8 fL Neutrophils (%) (Auto) 58.1 37.0-80.0 % Lymphocytes (%) (Auto) 25.6 10.0-50.0 % Monocytes (%) (Auto) 11.5 0.0-12.0 % Eosinophils (%) (Auto) 4.2 0.0-7.0 % Basophils (%) (Auto) 0.6 0.0-2.0 % Neutrophils # (Auto) 3.6 1.6-8.6 10 ^3/uL Lymphocytes # (Auto) 1.6 0.4-5.4 10 ^3/uL Monocytes # (Auto) 0.7 0-1.3 10 ^3/uL Eosinophils # (Auto) 0.3 0-0.8 10 ^3/uL Basophils # (Auto) 0 0-0.2 10 ^3/uL Nucleated Red Blood Cells 0.1 % Sodium Level 141 136-145 mmol/L Potassium Level 3.5 3.5-5.1 mmol/L Chloride Level 104 98-107 mmol/L Carbon Dioxide Level 31 20-31 mmol/L Anion Gap 6 5-15 Blood Urea Nitrogen 14 9-23 mg/dL Creatinine 0.86 0.700-1.30 mg/dL Glomerular Filtration Rate Calc 96 >90 mL/min BUN/Creatinine Ratio 16.3 10.0-20.0 Serum Glucose 106 74-106 mg/dL Calcium Level 9.6 8.7-10.4 mg/dL Total Bilirubin 0.6 0.2-1.0 mg/dL Aspartate Amino Transferase (AST) 16 13-40 U/L Alanine Aminotransferase (ALT) 21 7-40 U/L Alkaline Phosphatase 76 46-116 U/L B-Type Natriuretic Peptide 1038.99 0-100 pg/mL Total Protein 7.4 5.7-8.2 g/dL Albumin 4.3 3.2-4.8 g/dL Assessment/Plan Problem List: (1) SHORTNESS OF BREATH (2) ACUTE CHRONIC SYSTOLIC/DIALSTOLIC HRT FAILURE Plan This is a 64 yo male with known history of hypertension, DM, CAD, CHF, CA with cardiac stents, obesity who presents to the hospital with shortness of breath, exertional dyspnea. Patient found to have 1. Acute on chronic CHF with exacerbation 2. Hypertension 3. DM2 4. Obesity Plan Patient admitted to telemetry for diuresis Cardiology consultation, IV diuresis Furosemide, Fluid Restriction, Strict I&O's Reconcile home medications continue as needed Glucose monitoring ac & hs coverage with regular insulin mild sliding scale Smoking cessation education Social service consultation Discussed all above with patient who verbalizes agreement and understanding of care plan. All questions were answered. Discussed assessment and care plan with supervising MD. Plan discussed with: Patient, Other Code Visit Code Visit Total Time (mins): 45 Additional Comments Additional Comments Additional Comments 64-year-old male with a known history of congestive heart failure with systolic dysfunction, CAD status post PCI with three stents, chronic respiratory failure on home O2, COPD, chronic tobacco use disorder, presented to the hospital with a dyspnea on exertion found to have 1. Acute on chronic hypoxic respiratory failure secondary to acute CHF exacerbation and acute COPD exacerbation 2. Acute on chronic CHF exacerbation with systolic dysfunction 3. Acute COPD exacerbation 4. CAD status post PCI 5. Ischemic cardiomyopathy 6. Chronic tobacco use disorder -continue O2 supplementation, IV diuretics, cardiology consultation, med nebs, add IV Solu-Medrol -tobacco cessation counseling ELLE PISANO Nov 22, 2024 08:03 VERONICA BASS MD Nov 22, 2024 14:14
[2024-11-22] MEDS: IPRATROPIUM BROM 0.5 MG/2.5ML INH SOL NEB ONE (08:09)
[2024-11-22] MEDS: ASPirin-EC 81 mg tab PO SCH (08:54)
[2024-11-22] MEDS: CLOPIDOGREL BISULFATE 75 MG TAB PO SCH (08:54)
[2024-11-22] MEDS: FUROSEMIDE 40 MG/4 ML VIAL IV SCH (08:54)
[2024-11-22] MEDS: PANTOPRAZOLE 40 MG/10 ML VIAL INJ IV SCH (08:55)
[2024-11-22] MEDS: LISINOPRIL 20 MG TAB PO SCH (08:55)
[2024-11-22] MEDS ORDERED: PATIENTS OWN MEDICATION (Lisinopril 1 TAB) PO SCH (10:00)
[2024-11-22] MEDS ORDERED: ENOXAPARIN SOD 40 MG/0.4 ML SYRINGE SC SCH (10:00)
--- NOTE | 2024-11-22 11:02 | ECG ---
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
[2024-11-22] MEDS: InsuLIN REG 1unit/0.01ml Soln (100units/ml) SC SCH (11:13)
[2024-11-22] MEDS: ACCU-CHEK COMFORT CURVE STRIP VI SCH (11:13)
[2024-11-22] MEDS: MAGNESIUM OXIDE 400 MG TAB PO ONE (12:04)
[2024-11-22] MEDS: MAGNESIUM SULFATE 1GM/100ML 100 ML IV SCH (12:20)
[2024-11-22] MEDS: ALBUTEROL SULF 2.5 MG/0.5ML(0.5%) NEB SOLN NEB SCH (14:20)
[2024-11-22] MEDS: IPRATROPIUM BROM 0.5 MG/2.5ML INH SOL NEB SCH (14:20)
[2024-11-22] MEDS: HYDROcodone-ACET 5/325MG TAB PO PRN (14:42)
[2024-11-22] MEDS: methylPREDNISolone SOD SUCC 40 MG/ML VL IV SCH (15:17)
[2024-11-22] MEDS: ATORVASTATIN 20 MG TAB PO SCH (21:16)
[2024-11-22] MEDS: TAMSULOSIN HYDROCHLORIDE 0.4 MG CAP PO SCH (22:55)
[2024-11-23] VITALS (18 sets, daily range): BP systolic 101–114; BP diastolic 57–76; PULSE 63–95; RESP 17–22; TEMP 97.4–97.9; O2SAT 95–100
[2024-11-23 07:20] LABS: Chloride 103 mmol/L (98-107); Potassium 3.8 mmol/L (3.5-5.1); Sodium 140 mmol/L (136-145)
[2024-11-23 07:21] LABS: Anion Gap 8 (5-15); Calcium 9.6 mg/dL (8.7-10.4); Carbon Dioxide 29 mmol/L (20-31)
[2024-11-23 07:26] LABS: BUN/Creatinine Ratio 17.7 (10.0-20.0); Blood Urea Nitrogen 17 mg/dL (9-23); Glucose 151 mg/dL (74-106)
[2024-11-23] MEDS: metOLazone 5 MG TAB PO SCH (14:08)
--- NOTE | 2024-11-23 14:32 | DVHINCON2 ---
DATE OF CONSULTATION: 11/23/2024 REFERRING PHYSICIAN: CONSULTING PHYSICIAN: Dr. Andrade, covering for Dr. Cooper. INDICATION: Shortness of breath. HISTORY OF PRESENT ILLNESS: The patient is a 64-year-old male with history of coronary artery disease status post [place], status post angioplasty; history of ischemic cardiomyopathy, systolic heart failure, hypertension, diabetes, obesity, presented to the hospital with complaints of worsening shortness of breath and lower extremity edema. The patient stated that he has been compliant with his home medications including his torsemide. He denied any chest pain. Currently on IV Lasix with some improvement in his symptoms. PAST MEDICAL HISTORY: * CAD, status post [place]. * Ischemic cardiomyopathy. * History of angioplasty. * Systolic heart failure. * Diabetes. * Hypertension. * Obesity. MEDICATIONS: Per med rec. ALLERGIES: No known drug allergies. PHYSICAL EXAMINATION: GENERAL: Alert and awake, in no form of cardiopulmonary distress. VITAL SIGNS: Blood pressure 110/78, pulse 70 per minute, saturation 98%. HEENT: No carotid bruits. No jugular venous distention. CHEST: Bilateral air entry decreased. CARDIOVASCULAR: Precordial and carotid pulses palpable. Normal S1, S2. EXTREMITIES: Bilateral 1+ pitting edema. DIAGNOSTIC DATA: White count 6, hemoglobin 13, platelets 172. Sodium 140, potassium 3.8, creatinine 0.9. BNP elevated . Chest x-ray shows pulmonary congestion. ASSESSMENT: * Acute on chronic systolic heart failure. * Coronary artery disease, status post myocardial infarction. * Ischemic cardiomyopathy. * Diabetes. * Hypertension. * Obesity. RECOMMENDATIONS: * Agree with diuresis. * Continue IV Lasix. * Add metolazone 2.5 mg p.o. daily to augment diuresis. * Monitor electrolytes and renal function closely. * Monitor input and output closely. * Continue tele monitor for now. Thank you for allowing me to participate in the care of this patient. MD ROGER Zuniga/TED/ISABEL TID: [id number] RECEIPT: [id number]
--- NOTE | 2024-11-23 14:49 | DVHPN2 ---
Subjective Overnight events noted. Reviewed: Care Plan Changes from previous H/P or p: No Changes Objective Vitals Vital Signs Date Time Temp Pulse Resp B/P (MAP) Pulse Ox O2 Delivery O2 Flow Rate FiO2 11/23/24 14:08 108/73 11/23/24 13:00 97.7 70 20 96 97.7 11/23/24 11:00 Nasal Cannula 2.0 11/23/24 11:00 28 Intake/Output Intake and Output 11/23/24 07:00 Intake Total 120 ml Balance 120 ml Intake Oral 120 ml # Voids 2 Exam HEENT pupils are reactive Neck is supple CV is S1-S2 regular rate and rhythm Respiratory are clear GI positive bowel sound Extremity trace edema BOX [employer] no motor deficit Medications Current Medications Medications Dose Ordered Sig/Donnie Route Start Time Stop Time Status Last Admin Dose Admin Nitroglycerin 0.4 mg Q5MINP PRN SL 11/22/24 08:00 Morphine Sulfate 2 mg Q30M PRN IV 11/22/24 08:00 Furosemide 40 mg BID IV 11/22/24 10:00 11/23/24 09:39 40 MG Ondansetron HCl 4 mg Q6HPRN PRN IV 11/22/24 08:00 Acetaminophen/ Hydrocodone Bitart 1 tab Q6HPRN PRN PO 11/22/24 08:00 11/23/24 06:06 1 TAB Pantoprazole Sodium 40 mg DAILY IV 11/22/24 10:00 11/23/24 09:37 40 MG Acetaminophen 650 mg Q6HPRN PRN PO 11/22/24 08:00 Diagnostic Test (Pha) 1 strip ACHS 11/22/24 11:30 11/23/24 11:26 1 STRIP Insulin Human Regular ACHS SC 11/22/24 11:30 11/23/24 11:26 3 UNITS Dextrose 50 ml UD PRN IV 11/22/24 08:00 Aspirin 81 mg DAILY PO 11/22/24 10:00 11/23/24 09:37 81 MG Atorvastatin Calcium 40 mg HS PO 11/22/24 22:00 11/22/24 21:16 40 MG Clopidogrel Bisulfate 75 mg DAILY PO 11/22/24 10:00 11/23/24 09:38 75 MG Tamsulosin HCl 0.4 mg HS PO 11/22/24 22:00 11/22/24 22:55 0.4 MG Patient Own Medication 1 tab DAILY PO 11/22/24 10:00 UNV Lisinopril 40 mg DAILY PO 11/22/24 10:00 11/23/24 09:40 40 MG Albuterol 2.5 mg Q4HWA [facility] 11/22/24 14:00 11/23/24 11:00 2.5 MG Ipratropium [place] 0.5 mg Q4HWA [facility] 11/22/24 14:00 11/23/24 11:00 0.5 MG Methylprednisolone Sodium Succinate 40 mg Q8HR IV 11/22/24 14:00 11/23/24 13:59 40 MG Metolazone 2.5 mg DAILY PO 11/23/24 13:30 11/23/24 14:08 2.5 MG Laboratory Results Laboratory Tests 11/22/24 01:58 11/23/24 05:15 Chemistry Test 11/23/24 05:15 Calcium Level 9.6 mg/dL (8.7-10.4) Assessment/Plan Assessment/Plan 64-year-old male with a known history of congestive heart failure with systolic dysfunction, CAD status post PCI with three stents, chronic respiratory failure on home O2, COPD, chronic tobacco use disorder, presented to the hospital with a dyspnea on exertion found to have 1. Acute on chronic hypoxic respiratory failure secondary to acute CHF exacerbation and acute COPD exacerbation 2. Acute on chronic CHF exacerbation with systolic dysfunction 3. Acute COPD exacerbation 4. CAD status post PCI 5. Ischemic cardiomyopathy 6. Chronic tobacco use disorder -continue IV diuretics, continue metolazone, discharge plan. Plan discussed with: Patient Date of Service: Nov 23, 2024 Billing Provider: VERONICA BASS MD Common Visit Codes: NOT BILLABLE VERONICA BASS MD Nov 23, 2024 14:49
[2024-11-24] VITALS (17 sets, daily range): BP systolic 89–130; BP diastolic 59–95; PULSE 70–91; RESP 16–98; TEMP 97.5–98.3; O2SAT 20–100
[2024-11-24 06:54] LABS: Chloride 101 mmol/L (98-107); Potassium 3.8 mmol/L (3.5-5.1); Sodium 140 mmol/L (136-145)
[2024-11-24 06:55] LABS: Anion Gap 9 (5-15); Calcium 9.8 mg/dL (8.7-10.4); Carbon Dioxide 30 mmol/L (20-31)
[2024-11-24 07:01] LABS: Glucose 148 mg/dL (74-106)
[2024-11-24 07:10] LABS: BUN/Creatinine Ratio 22.3 (10.0-20.0); Blood Urea Nitrogen 23 mg/dL (9-23)
--- NOTE | 2024-11-24 16:33 | DVHPN2 ---
Subjective Overnight events noted. Patient denies any chest pain still complaining of shortness of breaths. Reviewed: Care Plan Changes from previous H/P or p: No Changes Objective Vitals Vital Signs Date Time Temp Pulse Resp B/P (MAP) Pulse Ox O2 Delivery O2 Flow Rate FiO2 11/24/24 13:34 83 18 100 11/24/24 13:28 Nasal Cannula* 2 28 11/24/24 13:07 98.0 130/95 (107) 98.0 Intake/Output Intake and Output 11/24/24 07:00 Intake Total 1580 ml Output Total 1800 ml Balance -220 ml Intake Oral 1580 ml Output Urine Total 1800 ml # Voids 5 # Bowel Movements 1 Exam HEENT pupils are reactive Neck is supple CV is S1-S2 regular rate and rhythm Respiratory are clear GI positive bowel sound Extremity trace edema [employer] no motor deficit Medications Current Medications Medications Dose Ordered Sig/Donnie Route Start Time Stop Time Status Last Admin Dose Admin Nitroglycerin 0.4 mg Q5MINP PRN SL 11/22/24 08:00 Morphine Sulfate 2 mg Q30M PRN IV 11/22/24 08:00 Furosemide 40 mg BID IV 11/22/24 10:00 11/24/24 10:46 40 MG Ondansetron HCl 4 mg Q6HPRN PRN IV 11/22/24 08:00 Acetaminophen/ Hydrocodone Bitart 1 tab Q6HPRN PRN PO 11/22/24 08:00 11/24/24 08:52 1 TAB Pantoprazole Sodium 40 mg DAILY IV 11/22/24 10:00 11/24/24 10:43 40 MG Acetaminophen 650 mg Q6HPRN PRN PO 11/22/24 08:00 Diagnostic Test (Pha) 1 strip ACHS 11/22/24 11:30 11/24/24 11:58 1 STRIP Insulin Human Regular ACHS SC 11/22/24 11:30 11/24/24 11:59 2 UNITS Dextrose 50 ml UD PRN IV 11/22/24 08:00 Aspirin 81 mg DAILY PO 11/22/24 10:00 11/24/24 10:46 81 MG Atorvastatin Calcium 40 mg HS PO 11/22/24 22:00 11/23/24 22:13 40 MG Clopidogrel Bisulfate 75 mg DAILY PO 11/22/24 10:00 11/24/24 10:46 75 MG Tamsulosin HCl 0.4 mg HS PO 11/22/24 22:00 11/23/24 22:12 0.4 MG Patient Own Medication 1 tab DAILY PO 11/22/24 10:00 UNV Lisinopril 40 mg DAILY PO 11/22/24 10:00 11/24/24 10:45 40 MG Albuterol 2.5 mg Q4HWA NEB 11/22/24 14:00 11/24/24 13:28 2.5 MG Ipratropium [place] 0.5 mg Q4HWA NEB 11/22/24 14:00 11/24/24 13:28 0.5 MG Metolazone 2.5 mg DAILY PO 11/23/24 13:30 11/24/24 10:47 2.5 MG Laboratory Results Laboratory Tests 11/22/24 01:58 11/24/24 05:52 Chemistry Test 11/24/24 05:52 Calcium Level 9.8 mg/dL (8.7-10.4) Microbiology Microbiology Date/Time Source Procedure Growth Status 11/23/24 13:56 Nose MRSA Screen - Final Complete Assessment/Plan Assessment/Plan 64-year-old male with a known history of congestive heart failure with systolic dysfunction, CAD status post PCI with three stents, chronic respiratory failure on home O2, COPD, chronic tobacco use disorder, presented to the hospital with a dyspnea on exertion found to have 1. Acute on chronic hypoxic respiratory failure secondary to acute CHF exacerbation and acute COPD exacerbation 2. Acute on chronic CHF exacerbation with systolic dysfunction 3. Acute COPD exacerbation 4. CAD status post PCI 5. Ischemic cardiomyopathy 6. Chronic tobacco use disorder -continue IV diuretics, continue metolazone, discharge plan. -discontinue steroids. Plan discussed with: Patient Date of Service: Nov 24, 2024 Billing Provider: VERONICA BASS MD Common Visit Codes: NOT BILLABLE VERONICA BASS MD Nov 24, 2024 16:32
[2024-11-25] VITALS (15 sets, daily range): BP systolic 94–120; BP diastolic 79–91; PULSE 72–91; RESP 14–18; TEMP 36.8; O2SAT 92–100
[2024-11-25 12:12] LABS: Basophils # (auto) 0 10 ^3/uL (0-0.2); Basophils % (auto) 0.3 % (0.0-2.0); Eosinophils # (auto) 0 10 ^3/uL (0-0.8); Eosinophils % (auto) 0.4 % (0.0-7.0); Hemoglobin 13.1 g/dL (13.5-17.5); Lymphocytes # (auto) 2.6 10 ^3/uL (0.4-5.4); Lymphocytes % (auto) 26.7 % (10.0-50.0); Mean Corpuscular Hemoglobin 29.6 pg (28.0-32.0); Mean Corpuscular Hgb Conc. 31.9 g/dL (32.0-36.0); Mean Corpuscular Volume 92.8 fL (80.0-100.0); Monocytes # (auto) 0.9 10 ^3/uL (0-1.3); Monocytes % (auto) 9.9 % (0.0-12.0); Neutrophils % (auto) 62.7 % (37.0-80.0); Platelet Count (auto) 190 10^3/uL (140-450); Red Blood Cells 4.41 10^6/uL (4.5-5.90); Red Cell Distribution Width 14.7 % (11.8-14.3); White Blood Cell 9.6 10^3/uL (4.4-10.8)
[2024-11-25 12:29] LABS: Alanine Aminotransferase 34 U/L (7-40); Albumin 4.3 g/dL (3.2-4.8); Alkaline Phosphatase 65 U/L (46-116); Anion Gap 8 (5-15); Aspartate Aminotransferase 18 U/L (13-40); BUN/Creatinine Ratio 25.5 (10.0-20.0); Calcium 9.9 mg/dL (8.7-10.4); Chloride 100 mmol/L (98-107); Sodium 140 mmol/L (136-145); Total Protein 7.2 g/dL (5.7-8.2)
[2024-11-25 12:30] LABS: Bilirubin, Total 0.3 mg/dL (0.2-1.0); Blood Urea Nitrogen 27 mg/dL (9-23); Carbon Dioxide 32 mmol/L (20-31); Glucose 131 mg/dL (74-106); Potassium 3.1 mmol/L (3.5-5.1)
--- NOTE | 2024-11-25 12:43 | DVH ---
CHEST RADIOGRAPH Indication: COUGH Technique: Frontal and lateral view of the chest was obtained Comparison: XY CHEST TWO VIEWS ROUTINE on DOS: 11/22/24, XY CHEST TWO VIEWS ROUTINE on DOS: 11/11/24, CX R2 on DOS: 01/24/22 FINDINGS: Lines and Tubes: None Lungs: Mild congestion Pleura: No effusion. No pneumothorax. Cardiomediastinal contours: Unremarkable Bones: Unremarkable IMPRESSION: Mild congestion, unchanged
[2024-11-25] MEDS: POTASSIUM EFFERVESENT TAB 25 MEQ PO ONE ×2 (13:13→15:19)
[2024-11-25] MEDS ORDERED: DOXY100C79 PO (16:19)
--- NOTE | 2024-11-25 16:20 | DVHDS2 ---
Discharge Summary Date of Admission Nov 22, 2024 at 07:46 Date of Discharge: Nov 25, 2024 Labs/Diagnostic Data: Laboratory Results Test 11/25/24 13:00 11/25/24 11:42 11/22/24 06:10 11/22/24 05:13 POC Glucose 140 mg/dl (70-106) White Blood Count 9.6 10^3/uL (4.4-10.8) Red Blood Count 4.41 10^6/uL (4.5-5.90) Hemoglobin 13.1 g/dL (13.5-17.5) Hematocrit 41.0 % (41.0-53.0) Mean Corpuscular Volume 92.8 fL (80.0-100.0) Mean Corpuscular Hemoglobin 29.6 pg (28.0-32.0) Mean Corpuscular Hemoglobin Concent 31.9 g/dL (32.0-36.0) Red Cell Distribution Width 14.7 % (11.8-14.3) Platelet Count 190 10^3/uL (140-450) Mean Platelet Volume 8.9 fL (6.9-10.8) Neutrophils (%) (Auto) 62.7 % (37.0-80.0) Lymphocytes (%) (Auto) 26.7 % (10.0-50.0) Monocytes (%) (Auto) 9.9 % (0.0-12.0) Eosinophils (%) (Auto) 0.4 % (0.0-7.0) Basophils (%) (Auto) 0.3 % (0.0-2.0) Neutrophils # (Auto) 6.0 10 ^3/uL (1.6-8.6) Lymphocytes # (Auto) 2.6 10 ^3/uL (0.4-5.4) Monocytes # (Auto) 0.9 10 ^3/uL (0-1.3) Eosinophils # (Auto) 0 10 ^3/uL (0-0.8) Basophils # (Auto) 0 10 ^3/uL (0-0.2) Nucleated Red Blood Cells 0.0 % Sodium Level 140 mmol/L (136-145) Potassium Level 3.1 mmol/L (3.5-5.1) Chloride Level 100 mmol/L (98-107) Carbon Dioxide Level 32 mmol/L (20-31) Anion Gap 8 (5-15) Blood Urea Nitrogen 27 mg/dL (9-23) Creatinine 1.06 mg/dL (0.700-1.30) Glomerular Filtration Rate Calc 78 mL/min (>90) BUN/Creatinine Ratio 25.5 (10.0-20.0) Serum Glucose 131 mg/dL (74-106) Calcium Level 9.9 mg/dL (8.7-10.4) Total Bilirubin 0.3 mg/dL (0.2-1.0) Aspartate Amino Transferase (AST) 18 U/L (13-40) Alanine Aminotransferase (ALT) 34 U/L (7-40) Alkaline Phosphatase 65 U/L (46-116) Total Protein 7.2 g/dL (5.7-8.2) Albumin 4.3 g/dL (3.2-4.8) Blood Gas Specimen Type Arterial Blood Gas Sample Site Right radial Blood Gas Patient Temperature 37.0 Arterial Blood Date Drawn [id number] Arterial Blood pH 7.412 (7.350-7.450) Arterial Blood Partial Pressure CO2 46.5 mmHg (35.0-48.0) Arterial Blood Partial Pressure O2 103.6 mmHg (83.0-108.0) Arterial Blood HCO3 28.9 mmol/L (21.0-28.0) Arterial Blood Oxygen Saturation 97.3 % (94.0-98.0) Arterial Blood Base Excess 3.6 mmol/L (-2.0-3.0) Arterial Blood Oxyhemoglobin 95.9 % (94.0-98.0) Arterial Blood Carboxyhemoglobin 0.8 % (0.5-1.5) Arterial Blood Methemoglobin 0.6 % (0.0-1.5) Garcia Test Yes Blood Gas Total Hemoglobin 14.50 g/dL (13.5-17.5) Blood Gas Liter Flow 2.00 Blood Gas Modality Nasal cannula FiO2 % 28.0 Influenza Type A Antigen Negative (Negative) Influenza Type B Antigen Negative (Negative) SARS-CoV-2 Antigen (Rapid) Negative (NEGATIVE) Test 11/22/24 04:40 11/22/24 01:58 Troponin I High Sensitivity 30 ng/L (</=54) Magnesium Level 1.5 mg/dL (1.6-2.6) B-Type Natriuretic Peptide 1038.99 pg/mL (0-100) Other Laboratory Tests 11/25/24 11:42 Brief Hx & Hospital Course: 64-year-old male with a known history of congestive heart failure with systolic dysfunction, CAD status post PCI with three stents, chronic respiratory failure on home O2, COPD, chronic tobacco use disorder, presented to the hospital with a dyspnea on exertion found to have on chronic hypoxic respiratory failure secondary to acute CHF exacerbation and acute COPD exacerbation. Patient was was given IV diuretics med nebs. Cardiology was consulted. Patient was also complaining some cough with phlegm. Patient was being discharged under stable condition. Patient needs to follow up with [facility]F Clinic as an outpatient. Nicotine cessation counseling has been discussed. Condition at Discharge: Stable Final Diagnosis/Problems List 64-year-old male with a known history of congestive heart failure with systolic dysfunction, CAD status post PCI with three stents, chronic respiratory failure on home O2, COPD, chronic tobacco use disorder, presented to the hospital with a dyspnea on exertion found to have 1. Acute on chronic hypoxic respiratory failure secondary to acute CHF exacerbation and acute COPD exacerbation 2. Acute on chronic CHF exacerbation with systolic dysfunction 3. Acute COPD exacerbation 4. CAD status post PCI 5. Ischemic cardiomyopathy 6. Chronic tobacco use disorder -continue IV diuretics, continue metolazone, discharge plan. -discontinue steroids. Discharge Disposition: Home with Health Services SNF Discharge Will this Physician continue t: No Discharge Instruct/Medications Diet: Cardiac 2g Na,low cholest Activity: No Restrictions, As Tolerated Follow Up/Referral: With the PCP in 1-2 weeks Follow up with Cardiology in 1-2 weeks Medications: As prescribed and reconciled New Medications: Doxycycline (Monohydrate) (Doxycycline) 100 Mg Cap 100 MG PO BID, #14 CAP Metolazone (Metolazone) 5 Mg Tab 2.5 MG PO DAILY for 60 Days, #30 TAB Continued Medications: Acetaminophen W/ Codeine (Tylenol W/Cod #3) 1 Tab Tb 1 TAB PO QIDPRN, #10 TAB 0 Refills Allopurinol (Zyloprim Tablet) 300 Mg Tb 300 MG PO DAILY Aspirin (Aspirin Low Strength) 81 Mg Chw 81 MG PO DAILY for 30 Days, #30 TAB.CHEW 4 Refills Aspirin (Aspirin 81) 81 Mg Tab 81 MG PO DAILY, #90 TAB Atorvastatin Calcium (Atorvastatin Calcium) 20 Mg Tab 40 MG PO HS for 30 Days, #30 TAB 4 Refills Atorvastatin Calcium (Lipitor) 40 Mg Tab 1 TAB PO QPM, #90 TAB 1 Refill Bumetanide (Bumetanide) 2 Mg Tab 1 TAB PO BID for 30 Days, #60 TAB 5 Refills Bumetanide (Bumetanide) 2 Mg Tab 1 TAB PO DAILY, #90 TAB 1 Refill Clopidogrel Bisulfate (Plavix) 75 Mg Tab 1 TAB PO DAILY, #90 TAB 3 Refills Docusate Sodium (Colace) 100 Mg Cap 1 CAP PO BID, #30 CAP Furosemide (Lasix) 40 Mg Tab 40 MG PO DAILY, #90 TAB Hydrocodone-Acetaminophen (Hydrocodone Bitartrate/AC 5-325 mg) 1 Tab Tab 1 TAB PO Q6HP PRN for 5 Days, #20 TAB Lisinopril (Lisinopril) 40 Mg Tab 1 TAB PO DAILY for 30 Days, #30 TAB 5 Refills Methylprednisolone (Medrol Dosepak) 4 Mg Sincere 4 MG PO UD, #21 TAB UAD Potassium Chloride (Potassium Chloride Cr) 10 Meq Tb 10 MEQ PO BID for 30 Days, #60 TAB Tamsulosin Hcl (Tamsulosin Hcl) 0.4 Mg Cap 0.4 MG PO HS, CAP Torsemide (Torsemide) 20 Mg Tab 20 MG PO DAILY, #90 TAB Discontinued Medications: Clopidogrel Bisulfate (Clopidogrel) 75 Mg Tab 75 MG PO DAILY for 30 Days, #30 TAB 2 Refills Furosemide (Lasix) 40 Mg Tab 40 MG PO DAILY for 30 Days, #30 TAB 1 Refill Discharge Statement: "Patient was advised to return to the ER or call 911 if any headaches, dizziness, shortness of breath, chest pain, abdominal pain, bleeding, fevers, or worsening of medical condition. Patient was counseled about treatment plan, medications, possible side effects, patientverbalized understanding. All questions were answered to the best of my ability. This discharge took greater then 30 minutes in planning, reviewing documentation, counseling the patient, and discussing with other team members." ASSESSMENT ASSESSMENT Assessment 64-year-old male with a known history of congestive heart failure with systolic dysfunction, CAD status post PCI with three stents, chronic respiratory failure on home O2, COPD, chronic tobacco use disorder, presented to the hospital with a dyspnea on exertion found to have 1. Acute on chronic hypoxic respiratory failure secondary to acute CHF exacerbation and acute COPD exacerbation 2. Acute on chronic CHF exacerbation with systolic dysfunction 3. Acute COPD exacerbation 4. CAD status post PCI 5. Ischemic cardiomyopathy 6. Chronic tobacco use disorder -continue IV diuretics, continue metolazone, discharge plan. -discontinue steroids. Date of Service: Nov 25, 2024 Billing Provider: VERONICA BASS MD Common Visit Codes: NOT BILLABLE VERONICA BASS MD Nov 25, 2024 16:20
[2024-11-25] MEDS ORDERED: METO5TAB5 PO (16:21)
== END 2024-11-25 16:15 | disposition home health service (06) | DRG 291 ==
LOC: ER 23:53 → OVERFLOW 11-22 07:46 → TELE-CENTR 11-22 23:29
PROVIDERS: ADMIT Nurse Practitioner Family; ATTEND Nurse Practitioner Family
DX: I11.0 Hypertensive heart disease with heart failure (principal); I50.23 Acute on chronic systolic (congestive) heart failure; J96.21 Acute and chronic respiratory failure with hypoxia; J44.1 Chronic obstructive pulmonary disease with (acute) exacerbation; Z68.45 Body mass index [BMI] 70 or greater, adult; E11.9 Type 2 diabetes mellitus without complications; I25.5 Ischemic cardiomyopathy; I25.119 Atherosclerotic heart disease of native coronary artery with unspecified angina pectoris; E78.5 Hyperlipidemia, unspecified; F17.210 Nicotine dependence, cigarettes, uncomplicated; Z20.822 Contact with and (suspected) exposure to COVID-19; E66.01 Morbid (severe) obesity due to excess calories; M10.9 Gout, unspecified; I25.2 Old myocardial infarction; Z79.891 Long term (current) use of opiate analgesic; Z79.899 Other long term (current) drug therapy; Z79.1 Long term (current) use of non-steroidal anti-inflammatories (NSAID); Z79.84 Long term (current) use of oral hypoglycemic drugs; Z79.82 Long term (current) use of aspirin; Z95.5 Presence of coronary angioplasty implant and graft; Z83.3 Family history of diabetes mellitus; Z82.49 Family history of ischemic heart disease and other diseases of the circulatory system; Z82.3 Family history of stroke; Z99.81 Dependence on supplemental oxygen; Z71.6 Tobacco abuse counseling
CPT/HCPCS: 36415; 36600; 71046; 80048; 80053; 82805; 82962; 83735; 83880; 84484; 85025; 87081; 87426; 87804; 93005; 94640; G0378; J1815; J2470

== ENCOUNTER 2025-01-05 07:16 | Emergency (ER) | payer OTHER ==
[~2025-01-05] VITALS: Ht 185.4 cm; Wt 142.0 kg
[~2025-01-05 07:16] MED LIST changes: -CLOP75TA70 PO; +DOXY100C79 PO; +METO5TAB5 PO
[2025-01-05 08:09] LABS: Basophils # (auto) 0.1 10 ^3/uL (0-0.2); Basophils % (auto) 0.7 % (0.0-2.0); Eosinophils # (auto) 0.1 10 ^3/uL (0-0.8); Eosinophils % (auto) 1.4 % (0.0-7.0); Hematocrit 46.5 % (41.0-53.0); Hemoglobin 15.5 g/dL (13.5-17.5); Lymphocytes # (auto) 1.9 10 ^3/uL (0.4-5.4); Lymphocytes % (auto) 24.4 % (10.0-50.0); Mean Corpuscular Hgb Conc. 33.3 g/dL (32.0-36.0); Mean Corpuscular Volume 90.1 fL (80.0-100.0); Monocytes # (auto) 1.1 10 ^3/uL (0-1.3); Monocytes % (auto) 13.8 % (0.0-12.0); Neutrophils # (auto) 4.6 10 ^3/uL (1.6-8.6); Neutrophils % (auto) 59.7 % (37.0-80.0); Platelet Count (auto) 193 10^3/uL (140-450); Red Blood Cells 5.16 10^6/uL (4.5-5.90); Red Cell Distribution Width 14.9 % (11.8-14.3); White Blood Cell 7.8 10^3/uL (4.4-10.8)
[2025-01-05 08:17] LABS: Chloride 99 mmol/L (98-107)
[2025-01-05 08:18] LABS: Anion Gap 11 (5-15); Calcium 9.5 mg/dL (8.7-10.4); Carbon Dioxide 25 mmol/L (20-31)
[2025-01-05 08:20] LABS: Potassium 3.3 mmol/L (3.5-5.1); Sodium 135 mmol/L (136-145)
[2025-01-05] MEDS: HYDROMORPHONE HCL 1 MG/ML INJ IV ONE (08:20)
[2025-01-05] MEDS: ONDANSETRON HCL 4 MG/2 ML VIAL IV ONE (08:21)
[2025-01-05] MEDS: KETOROLAC TROMETH 30 MG/ML 1ML VIAL IV ONE (08:21)
--- NOTE | 2025-01-05 08:21 | ED.PDOC ---
Musculoskeletal HPI Comments 64 year old male presents to the ED with chief complaint of left knee pain/swelling and flank pain. Patient reports that he started to suddenly experience left knee pain and swelling 4 days ago, feeling like gout flare ups he has had in the past. Patient relays that he has also been experiencing back pain/right sided flank pain for about a week. Patient states he has not taken any Allopurinol for his possible gout flare up today. Patient denies any fall, injury, numbness, weakness, chest pain, or SOB. Chief Complaint: Flank Pain Time Seen by MD: 08:15 Primary Care Provider: STEPHEN Reviewed Notes: Nurses Notes, Medications, Allergies Allergies: Coded Allergies: NO KNOWN ALLERGIES (Unverified , 06/29/21) Home Meds Active Scripts Indomethacin (Indomethacin) 50 Mg Cap, 1 CAP PO TID, #9 CAP 1 Refill Prov:TERESA ANDREWS MD 01/05/25 Metolazone (Metolazone) 5 Mg Tab, 2.5 MG PO DAILY for 60 Days, #30 TAB Prov:VERONICA BASS MD 11/25/24 Doxycycline (Monohydrate) (Doxycycline) 100 Mg Cap, 100 MG PO BID, #14 CAP Prov:VERONICA BASS MD 11/25/24 Docusate Sodium (Colace) 100 Mg Cap, 1 CAP PO BID, #30 CAP Prov:RAMIRO HAMLIN MD 10/22/24 Hydrocodone-Acetaminophen (Hydrocodone Bitartrate/AC 5-325 mg) 1 Tab Tab, 1 TAB PO Q6HP PRN for 5 Days, #20 TAB Prov:RAMIRO HAMLIN MD 10/22/24 Acetaminophen W/ Codeine (Tylenol W/Cod #3) 1 Tab Tb, 1 TAB PO QIDPRN, #10 TAB 0 Refills Prov:ELVIN CARDENAS 11/10/23 Torsemide (Torsemide) 20 Mg Tab, 20 MG PO DAILY, #90 TAB Prov:EDWINA EATON MD 08/30/23 Clopidogrel Bisulfate (Plavix) 75 Mg Tab, 1 TAB PO DAILY, #90 TAB 3 Refills Prov:EDWINA EATON MD 08/30/23 Bumetanide (Bumetanide) 2 Mg Tab, 1 TAB PO DAILY, #90 TAB 1 Refill Prov:EDWINA EATON MD 08/30/23 Furosemide (Lasix) 40 Mg Tab, 40 MG PO DAILY, #90 TAB Prov:EDWINA EATON MD 08/30/23 Atorvastatin Calcium (Lipitor) 40 Mg Tab, 1 TAB PO QPM, #90 TAB 1 Refill Prov:EDWINA EATON MD 08/30/23 Aspirin (ASPIRIN 81) 81 Mg Tab, 81 MG PO DAILY, #90 TAB Prov:EDWINA EATON MD 08/30/23 Lisinopril (Lisinopril) 40 Mg Tab, 1 TAB PO DAILY for 30 Days, #30 TAB 5 Refills Prov:SEBASTIAN JONES MD 05/08/23 Potassium Chloride (POTASSIUM CHLORIDE CR) 10 Meq Tb, 10 MEQ PO BID for 30 Days, #60 TAB Prov:SEBASTIAN JONES MD 05/08/23 Methylprednisolone (Medrol Dosepak) 4 Mg Sincere, 4 MG PO UD, #21 TAB UAD Prov:JASVIR ESCALERA NP 10/11/22 Atorvastatin Calcium (ATORVASTATIN CALCIUM) 20 Mg Tab, 40 MG PO HS for 30 Days, #30 TAB 4 Refills Prov:VALENTÍN MARLOW MD 12/24/21 Bumetanide (Bumetanide) 2 Mg Tab, 1 TAB PO BID for 30 Days, #60 TAB 5 Refills Prov:VALENTÍN MARLOW MD 12/24/21 Aspirin (Aspirin Low Strength) 81 Mg Chw, 81 MG PO DAILY for 30 Days, #30 TAB.CHEW 4 Refills Prov:VALENTÍN MARLOW MD 12/24/21 Reported Medications Tamsulosin Hcl (Tamsulosin Hcl) 0.4 Mg Cap, 0.4 MG PO HS, CAP 08/24/19 Allopurinol (ZYLOPRIM TABLET) 300 Mg Tb, 300 MG PO DAILY 03/09/19 Information Source: Patient Mode of Arrival: Wheelchair Location: Left Extremity Location: Knee Timing: Days Prehospital treatment: None Severity: Moderate Able to Move Extremity: Yes Bear Weight: Limited Pain: Moderate Mechanism: Spontaneous Circumstances: Spontaneous Onset of Symptoms: Spontaneous Symptoms: Swelling, Pain DVT Risk Factors: CHF History of: Gout Past Medical History PAST MEDICAL HISTORY: Angina, CAD, CHF, COPD, DM, Gout, High Lipids, HTN, NH Surgical History: PTCA, Tonsillectomy Surgical History (Other): Back surgery Family History Family History: Reviewed,noncontributory to illness Social History Smoker: Cigarettes, Less Than 1 Pack/Day Alcohol: Occasionally Drugs: Denies Drug Use Lives In: Home Constitutional: denies: chills, diaphoresis, fatigue, fever, malaise, sweats, weakness, others EENTM: denies: blurred vision, double vision, ear bleeding, ear discharge, ear drainage, ear pain, ear ringing, eye pain, eye redness, hearing loss, mouth pain, mouth swelling, nasal discharge, nose bleeding, nose congestion, nose pain, photophobia, tearing, throat pain, throat swelling, voice changes, others Respiratory: denies: cough, hemoptysis, orthopnea, SOB at rest, shortness of breath, SOB with excertion, stridor, wheezing, others Cardiovascular: denies: chest pain, dizzy spells, diaphoresis, Dyspnea on exertion, edema, irregular heart beat, left arm pain, lightheadedness, palpitations, PND, syncope, others Gastrointestinal: denies: abdomen distended, abdominal pain, blood streaked bowels, constipated, diarrhea, dysphagia, difficulty swallowing, hematemesis, melena, nausea, poor appetite, poor fluid intake, rectal bleeding, rectal pain, vomiting, others Genitourinary: reports: flank pain; denies: burning, dysuria, frequency, hematuria, incontinence, penile discharge, penile sore, pain, testicle pain, testicle swelling, urgency, others Neurological: denies: dizziness, fainting, headache, left sided numbness, left sided weakness, numbness, paresthesia, pre-existing deficit, right sided numbness, right sided weakness, seizure, speech problems, tingling, tremors, weakness, others Musculoskeletal: reports: back pain, gout, others (Left knee pain and swelling); denies: joint pain, joint swelling, muscle pain, muscle stiffness, neck pain Integumetry: denies: bruises, change in color, change in hair/nails, dryness, laceration, lesions, lumps, rash, wounds, others Allergic/Immunocompromised: denies: Difficulty Healing, Frequent Infections, Hives, Itching, others Hematologic/Lymphatic: denies: anemia, blood clots, easy bleeding, easy bruising, swollen glands, others Endocrine: denies: excessive hunger, excessive sweating, excessive thirst, excessive urination, flushing, intolerance to cold, intolerance to heat, unexplained weight gain, unexplained weight loss, others Psychiatric: denies: anxiety, bipolar disorder, depression, hopeless, panic disorder, schizophrenia, sleepless, suicidal, others All Other Systems: Reviewed and Negative Physical Exam General Appearance: Mild Distress, Normal HEENT: Normal ENT Inspection, Pharynx Normal, TMs Normal Neck: Full Range of Motion, Non-Tender, Normal, Normal Inspection Respiratory: Chest Non-Tender, Lungs Clear, No Accessory Muscle Use, No Respiratory Distress, Normal Breath Sounds Cardiovascular: No Edema, No JVD, No Murmur, No Gallop, Normal Peripheral Pulses, Regular Rate/Rhythm Breast Exam: Deferred Gastrointestinal: No Organomegaly, Non Tender, No Pulsatile Mass, Normal Bowel Sounds, Soft, Other (Tenderness to bilateral flank) Genitalia: Deferred Pelvic: Deferred Rectal: Deferred Extremities: Decreased range of motion, No calf tenderness, Normal capillary refill, Normal inspection, Normal range of motion, Non-tender, No pedal edema, Other (Left knee swollen. Patient able to bear weight and take a few steps as significant.) Musculoskeletal : Apperance: Tenderness (Lumbar mid spine tenderness to palpation. Right flank tenderness to palpation.) Neurologic: Alert, No Motor Deficits, Normal Affect, Normal Mood, No Sensory Deficits Cerebellar Function: Normal Reflexes: Normal Skin: Dry, Normal Color, Warm Lymphatic: No Adenopathy Was a procedure done? Was a procedure done?: No Differential Diagnosis EXT Differential Diagnosis: Gout, Septic Other Differential Diagnosis uti, pyelo, sciatica X-Ray, Labs, Meds, VS Vital Signs Date Time Temp Pulse Resp B/P (MAP) Pulse Ox O2 Delivery O2 Flow Rate FiO2 01/05/25 09:19 98.0 90 16 138/93 (108) 93 98.0 01/05/25 09:13 90 16 138/93 01/05/25 08:25 85 20 95 Room Air* 0 21 01/05/25 08:20 91 18 102/78 01/05/25 08:09 97.9 91 18 102/78 (86) 98 97.9 01/05/25 08:09 91 18 98 Room Air 01/05/25 07:31 97.7 95 16 118/78 (91) 98 97.7 Lab Test 01/05/25 07:44 Range/Units White Blood Count 7.8 4.4-10.8 10^3/uL Red Blood Count 5.16 4.5-5.90 10^6/uL Hemoglobin 15.5 13.5-17.5 g/dL Hematocrit 46.5 41.0-53.0 % Mean Corpuscular Volume 90.1 80.0-100.0 fL Mean Corpuscular Hemoglobin 30.0 28.0-32.0 pg Mean Corpuscular Hemoglobin Concent 33.3 32.0-36.0 g/dL Red Cell Distribution Width 14.9 H 11.8-14.3 % Platelet Count 193 140-450 10^3/uL Mean Platelet Volume 9.1 6.9-10.8 fL Neutrophils (%) (Auto) 59.7 37.0-80.0 % Lymphocytes (%) (Auto) 24.4 10.0-50.0 % Monocytes (%) (Auto) 13.8 H 0.0-12.0 % Eosinophils (%) (Auto) 1.4 0.0-7.0 % Basophils (%) (Auto) 0.7 0.0-2.0 % Neutrophils # (Auto) 4.6 1.6-8.6 10 ^3/uL Lymphocytes # (Auto) 1.9 0.4-5.4 10 ^3/uL Monocytes # (Auto) 1.1 0-1.3 10 ^3/uL Eosinophils # (Auto) 0.1 0-0.8 10 ^3/uL Basophils # (Auto) 0.1 0-0.2 10 ^3/uL Nucleated Red Blood Cells 0.0 % Sodium Level 135 L 136-145 mmol/L Potassium Level 3.3 L 3.5-5.1 mmol/L Chloride Level 99 98-107 mmol/L Carbon Dioxide Level 25 20-31 mmol/L Anion Gap 11 5-15 Blood Urea Nitrogen 14 9-23 mg/dL Creatinine 0.90 0.700-1.30 mg/dL Glomerular Filtration Rate Calc 95 >90 mL/min BUN/Creatinine Ratio 15.6 10.0-20.0 Serum Glucose 127 H 74-106 mg/dL Uric Acid 7.7 3.7-9.2 mg/dL Calcium Level 9.5 8.7-10.4 mg/dL Current Medications Medications (Trade) Dose Ordered Sig/[facility] Route Start Time Stop Time Status Last Admin Hydromorphone HCl (Dilaudid Injection) 1 mg ONCE ONCE IV 01/05/25 07:45 01/05/25 07:46 DC 01/05/25 08:20 Ondansetron HCl (Zofran) 4 mg ONCE ONCE IV 01/05/25 07:45 01/05/25 07:46 DC 01/05/25 08:21 Ketorolac Tromethamine (Toradol Injection) 15 mg ONCE ONCE IV 01/05/25 07:45 01/05/25 07:46 DC 01/05/25 08:21 Dexamethasone Sodium Phosphate (Decadron Injection) 10 mg ONCE ONCE IV 01/05/25 07:45 01/05/25 07:46 DC 01/05/25 08:22 @1145: Patient notes that he has still been unable to urinate to provide a sample despite drinking fluids. 64-year-old male presents here with bilateral flank pain and he has been having for 1 week. Denies any dysuria. Patient also states he has left hand pain. He has a history of gout and states he feels like gout flare. I have given him Dilaudid Zofran Toradol and steroid in the ER. Blood work has been done which is unremarkable. There was no leukocytosis. Uric acid level was normal. I considered possible septic knee however low suspicion at time. Patient has likely gout of the knee. Patient feels much better after pain medication. At this time I will be discharging him with indomethicin. Additionally urinalysis was ordered on the patient. Patient was monitored in the ER for several hours with the patient unable to provide any uterine taking water. At this time patient does not have any dysuria. I have flank pain likely secondary to his ongoing back pain that he is having. Has a flank pain also improved with the pain medications at this time we will be discharging him home. Advised him if he begins to have dysuria returned the ER or primary care physician. Advised patient to follow up ENT in 3 days return to the ER if patient agreeable. Time of 1ST Reevaluation: 09:15 Reevaluation 1ST: Unchanged Patient Education/Counseling: Diagnosis, Treatment Family Education/Counseling: No Family Present Departure 1 Departure Time of Disposition: 11:15 Impression: Primary Impression: Gout of left knee Qualified Codes: M10.9 - Gout, unspecified Additional Impression: Flank pain Disposition: HOME / SELF CARE / HOMELESS Condition: Stable Additional Instructions: Follow up with PCP within 2-3 days. Return back to the ER if symptoms worsen or persist e-Prescriptions Indomethacin (Indomethacin) 50 Mg Cap 1 CAP PO TID, #9 CAP 1 Refill Prov: TERESA ANDREWS MD 01/05/25 Discharged With: Self Critical Care Note Critical Care Time?: No Stability Stability form required: No Heart Score Heart Score: Heart Score Response (Comments) Value History N/A 0 EKG N/A 0 Age N/A 0 Risk Factors N/A 0 Troponin N/A 0 Total 0 I personally scribed for TERESA ANDREWS MD ([email or web address]) on 01/05/25 at 08:21. Electronically submitted by Brandon Orozco ([email or web address]). I personally scribed for TERESA ANDREWS MD ([email or web address]) on 01/05/25 at 11:47. Electronically submitted by Brandon Orozco ([email or web address]). I personally scribed for TERESA ANDREWS MD ([email or web address]) on 01/05/25 at 11:52. Electronically submitted by Brandon Orozco ([email or web address]). I personally scribed for TERESA ANDREWS MD ([email or web address]) on 01/05/25 at 12:01. Electronically submitted by Brandon Orozco ([email or web address]). TERESA ANDREWS MD Jan 05, 2025 08:21
[2025-01-05] MEDS: DexAMETHasone SOD PHOS 10MG/1ML VIAL INJ IV ONE (08:22)
[2025-01-05] MEDS: HYDROmorphone HCL 2 MG/ML VL/or syr ONE (08:22)
[2025-01-05 08:23] LABS: BUN/Creatinine Ratio 15.6 (10.0-20.0); Blood Urea Nitrogen 14 mg/dL (9-23)
[2025-01-05 08:25] VITALS: PULSE 85; RESP 20; O2SAT 95
[2025-01-05 08:28] LABS: Glucose 127 mg/dL (74-106)
[2025-01-05 09:02] LABS: Uric Acid 7.7 mg/dL (3.7-9.2)
[2025-01-05 09:19] VITALS: BP 138/93; PULSE 90; RESP 16; TEMP 98; O2SAT 93
[2025-01-05] MEDS ORDERED: INDO50CA82 PO (12:35)
== END 2025-01-05 13:10 | disposition home or self-care (01) ==
LOC: ER 07:16
DX: M10.9 Gout, unspecified (principal); M25.562 Pain in left knee; R10.9 Unspecified abdominal pain; I11.0 Hypertensive heart disease with heart failure; I50.9 Heart failure, unspecified; E11.9 Type 2 diabetes mellitus without complications; F17.210 Nicotine dependence, cigarettes, uncomplicated; J44.9 Chronic obstructive pulmonary disease, unspecified; Z79.82 Long term (current) use of aspirin; Z79.899 Other long term (current) drug therapy; Z90.89 Acquired absence of other organs
CPT/HCPCS: 36415; 80048; 84550; 85025; 96374; 96375; 99284; J1100; J1171; J1885; J2405

== ENCOUNTER 2025-08-24 15:24 | Inpatient (IN) | payer OTHER ==
[~2025-08-24] VITALS: Ht 185.4 cm; Wt 142.7 kg
[2025-08-24] MEDS: IPRATROPIUM BROM 0.5 MG/2.5ML INH SOL NEB ONE (00:57)
[~2025-08-24 15:24] MED LIST changes: +INDO50CA82 PO
--- NOTE | 2025-08-24 16:06 | ED.PDOC ---
HPI Comments Patient is a 65-year-old male with past medical history of CAD s/p PCI KARMEN x3, COPD on home O2 2 L, congestive heart failure, diabetes, gout, dyslipidemia, hypertension, atrial fibrillation, brought in by EMS due to chest pain. According to the patient, in July he was found unresponsive in his truck and was taken to a hospital in [facility] where he was treated for heart failure exacerbation and pneumonia, since being discharged from the hospital on 08/11/2025 he has been experiencing chest pain which he localizes to the midsternum, 10/10 in intensity, cramping in nature, worsened by lying on ipsila teral side and relieved by nitroglycerin. Associated with shortness of breaths. Notes having similar pain in the past when he was diagnosed to have myocardial infarction. Patient also noted to have dyspnea Functional Class III. On review of systems patient is complaining of chills, diaphoresis, dry cough and shortness of breaths. Past medical history:CAD s/p PCI KARMEN x3, COPD on home O2 2 L, congestive heart failure, diabetes, gout, dyslipidemia, hypertension, atrial fibrillation Past surgical history: PCI Social & Personal history: Smokes 1 pack per day for the past 50 years. Drinks alcohol once or twice per month. Denies using any drugs. Lives at home with family. Allergies: Denies Patient seen and examined at bedside. Patient is alert and oriented to time, place person and responding to all questions. General: Chills Eyes: No Pain, No Vision change, No Conjunctivae inflammation, No Eyelid inflammation, No Other, No Redness ENT: No Ear pain, No Ear discharge, No Nose pain, No Nose discharge, No Nose congestion, No Mouth pain, No Mouth swelling, No Throat pain, No Throat swelling, No Other Cardiovascular: No Chest Pain, No Palpitations, No Orthopnea, No Paroxysmal No Dyspnea, No Edema, No Lt Headedness, No Other Respiratory: Dry Cough, No Dry, Shortness of breath, No SOB with exertion, No Wheezing, No Hemoptysis, No Pleuritic Pain, No Sputum, No Other Gastrointestinal: No Nausea, No Vomiting, No Abdominal Pain, No Diarrhea, No C onstipation, No Melena, No Hematochezia, No Other Genitourinary: No Dysuria, No Frequency, No Incontinence, No Hematuria, No Re tention, No Other Musculoskeletal: No other, No neck pain, No shoulder pain, No arm pain, No back pain, No hand pain, No leg pain, No foot pain Skin: No Rash, No Lesions, No Jaundice, No Bruising, No Other Attestation note: Dr. Forman: I was the supervising attending for this ED encounter. Please see the resident's notes. I was available for questions and consultations. Differential diagnosis: Ddx include but not limitied to gastritis, musculoskeletal pain, radiculopathy, atypical chest pain, dissection, aneurysm, ACS, unstable angina, hiatal hernia, GERD, anxiety, costochondritis, PE, pneumothroax, neoplasm, cardiac ischemia, drug abuse, anemia. MDM: MDM: patient presented with the above HPI.------workup was initiated. patient was found with the above mentioned diagnosis. the following medications were ordered: please refer to order lists of meds and tests obtained by myself Dr. Forman. Patient ED course and VS have been stabilized. Patient has been reassessed in the ED and remained in a stable condition. Pertinent incidental findings were discussed with the patient and/or family. Patient/family voices understanding and is agreeable with plan. Patient has been observed in the ED adequate length of time to insure improvement/stability. Escalation of care considered: Consideration of escalation to observation or admission Patient was ADMITTED to the medicine team for further evaluation and treatment of their presentation. Patient was DISCHARGED home in a stable condition. All the reports of any imaging studies that were ordered by myself were reviewed by myself. Chief Complaint: Chest Pain Time Seen by MD: 15:40 Primary Care Provider: STEPHEN Little Notes: Woods Rider Notes, Allergies Allergies: Coded Allergies: NO KNOWN ALLERGIES (Unverified , 06/29/21) Home Meds Active Scripts Indomethacin (Indomethacin) 50 Mg Cap, 1 CAP PO TID, #9 CAP 1 Refill Prov:TERESA ANDREWS MD 01/05/25 Metolazone (Metolazone) 5 Mg Tab, 2.5 MG PO DAILY for 60 Days, #30 TAB Prov:VERONICA BASS MD 11/25/24 Doxycycline (Monohydrate) (Doxycycline) 100 Mg Cap, 100 MG PO BID, #14 CAP Prov:VERONICA BASS MD 11/25/24 Docusate Sodium (Colace) 100 Mg Cap, 1 CAP PO BID, #30 CAP Prov:RAMIRO HAMLIN MD 10/22/24 Hydrocodone-Acetaminophen (Hydrocodone Bitartrate/AC 5-325 mg) 1 Tab Tab, 1 TAB PO Q6HP PRN for 5 Days, #20 TAB Prov:RAMIRO HAMLIN MD 10/22/24 Acetaminophen W/ Codeine (Tylenol W/Cod #3) 1 Tab Tb, 1 TAB PO QIDPRN, #10 TAB 0 Refills Prov:ELVIN CARDENAS 11/10/23 Torsemide (Torsemide) 20 Mg Tab, 20 MG PO DAILY, #90 TAB Prov:EDWINA EATON MD 08/30/23 Clopidogrel Bisulfate (Plavix) 75 Mg Tab, 1 TAB PO DAILY, #90 TAB 3 Refills Prov:EDWINA EATON MD 08/30/23 Bumetanide (Bumetanide) 2 Mg Tab, 1 TAB PO DAILY, #90 TAB 1 Refill Prov:EDWINA EATON MD 08/30/23 Furosemide (Lasix) 40 Mg Tab, 40 MG PO DAILY, #90 TAB Prov:EDWINA EATON MD 08/30/23 Atorvastatin Calcium (Lipitor) 40 Mg Tab, 1 TAB PO QPM, #90 TAB 1 Refill Prov:EDWINA EATON MD 08/30/23 Aspirin (ASPIRIN 81) 81 Mg Tab, 81 MG PO DAILY, #90 TAB Prov:EDWINA EATON MD 08/30/23 Lisinopril (Lisinopril) 40 Mg Tab, 1 TAB PO DAILY for 30 Days, #30 TAB 5 Refills Prov:SEBASTIAN JONES MD 05/08/23 Potassium Chloride (POTASSIUM CHLORIDE CR) 10 Meq Tb, 10 MEQ PO BID for 30 Days, #60 TAB Prov:SEBASTIAN JONES MD 05/08/23 Methylprednisolone (Medrol Dosepak) 4 Mg Sincere, 4 MG PO UD, #21 TAB UAD Prov:JASVIR ESCALERA NP 10/11/22 Atorvastatin Calcium (ATORVASTATIN CALCIUM) 20 Mg Tab, 40 MG PO HS for 30 Days, #30 TAB 4 Refills Prov:VALENTÍN MARLOW MD 12/24/21 Bumetanide (Bumetanide) 2 Mg Tab, 1 TAB PO BID for 30 Days, #60 TAB 5 Refills Prov:VALENTÍN MARLOW MD 12/24/21 Aspirin (Aspirin Low Strength) 81 Mg Chw, 81 MG PO DAILY for 30 Days, #30 TAB.CHEW 4 Refills Prov:VALENTÍN MARLOW MD 12/24/21 Reported Medications Tamsulosin Hcl (Tamsulosin Hcl) 0.4 Mg Cap, 0.4 MG PO HS, CAP 08/24/19 Allopurinol (ZYLOPRIM TABLET) 300 Mg Tb, 300 MG PO DAILY 03/09/19 Information Source: Patient, Emergency Med Personnel Mode of Arrival: EMS Severity: Severe Timing: Days Duration: Since onset Prehospital treatment: 12 Lead EKG, ASA Location: Chest (L), Substernal Radiation: No Radiation Quality: Squeezing Onset: At Rest Cardiac Risk Factors: Smoker, Hyperlipidemia, HTN, Diabetes History of: Similar pain in past, PR, Angina, Aspirin Past Medical History PAST MEDICAL HISTORY: Angina, CAD, CHF, COPD, DM, Gout, High Lipids, HTN, PR Surgical History: PTCA, Tonsillectomy Family History Family History: Reviewed,noncontributory to illness Social History Smoker: Cigarettes, Less Than 1 Pack/Day Alcohol: Occasionally Drugs: Denies Drug Use Lives In: Home Physical Exam General Appearance: Moderate Distress HEENT: Normal ENT Inspection, PERRL/EOMI Neck: None, Non-Tender, Normal, Normal Inspection Respiratory: Crackles, Respiratory Distress, Wheezing Cardiovascular: Irregular, No Edema, No Murmur Breast Exam: Deferred Gastrointestinal: Non Tender, No Pulsatile Mass, Normal Bowel Sounds Genitalia: Deferred Pelvic: Deferred Rectal: Rectal Exam not done Extremities: No calf tenderness, Normal range of motion, Non-tender, Pedal edema (Trace pitting) Neurologic: Alert, No Motor Deficits, Normal Mood, No Sensory Deficits Cerebellar Function: NOT DONE Reflexes: NOT DONE Skin: Dry, Normal Color, Warm Peripheral Pulses: 2+ dorsalis pedis (R), 2+ dorsalis pedis (L) Lymphatic: NOT DONE Was a procedure done? Was a procedure done?: No CP Differential Dx Differential Diagnosis: PR, Other (DDx include ACS, unstable angina, anxiety, PE, pneumothroax, neoplasm, cardiac ischemia, COPD, asthma, CHF, pleural effusion, tobacco abuse, pneumonia, hypoxia, hypercapnia, anemia., infection/sepsis., pulmonary edema. Asthma, Cardiac tamponade, infection.), N/A Differential Diagnosis: CHF, Medical NonCompliance Differential Diagnosis: Chest Wall Pain, Pneumonia, Other (Ddx include but not limitied to gastritis, musculoskeletal pain, radiculopathy, atypical chest pain, dissection, aneurysm, ACS, unstable angina, hiatal hernia, GERD, anxiety, costochondritis, PE, pneumothroax, neoplasm, cardiac ischemia, drug abuse, anemia.) X-Ray, Labs, Meds, VS Vital Signs Date Time Temp Pulse Resp B/P (MAP) Pulse Ox O2 Delivery O2 Flow Rate FiO2 08/24/25 16:28 75 08/24/25 15:36 98.6 70 18 142/88 96 98.6 08/24/25 15:24 78 Lab Test 08/24/25 19:20 08/24/25 17:24 08/24/25 16:23 Range/Units Troponin I High Sensitivity 32 31 33 </=54 ng/L White Blood Count 7.6 4.4-10.8 10^3/uL Red Blood Count 2.77 L 4.5-5.90 10^6/uL Hemoglobin 8.0 L 13.5-17.5 g/dL Hematocrit 25.1 L 41.0-53.0 % Mean Corpuscular Volume 90.5 80.0-100.0 fL Mean Corpuscular Hemoglobin 29.0 28.0-32.0 pg Mean Corpuscular Hemoglobin Concent 32.0 32.0-36.0 g/dL Red Cell Distribution Width 15.3 H 11.8-14.3 % Platelet Count 280 140-450 10^3/uL Mean Platelet Volume 8.9 6.9-10.8 fL Neutrophils (%) (Auto) 85.9 H 37.0-80.0 % Lymphocytes (%) (Auto) 7.2 L 10.0-50.0 % Monocytes (%) (Auto) 6.2 0.0-12.0 % Eosinophils (%) (Auto) 0.3 0.0-7.0 % Basophils (%) (Auto) 0.4 0.0-2.0 % Neutrophils # (Auto) 6.5 1.6-8.6 10 ^3/uL Lymphocytes # (Auto) 0.5 0.4-5.4 10 ^3/uL Monocytes # (Auto) 0.5 0-1.3 10 ^3/uL Eosinophils # (Auto) 0 0-0.8 10 ^3/uL Basophils # (Auto) 0 0-0.2 10 ^3/uL Nucleated Red Blood Cells 0.1 % Sodium Level 141 136-145 mmol/L Potassium Level 4.4 3.5-5.1 mmol/L Chloride Level 102 98-107 mmol/L Carbon Dioxide Level 31 20-31 mmol/L Anion Gap 8 5-15 Blood Urea Nitrogen 31 H 9-23 mg/dL Creatinine 1.68 H 0.700-1.30 mg/dL Glomerular Filtration Rate Calc 45 >90 mL/min BUN/Creatinine Ratio 18.5 10.0-20.0 Serum Glucose 144 H 74-106 mg/dL Lactic Acid Level 1.2 0.4-2.0 mmol/L Calcium Level 9.3 8.7-10.4 mg/dL Magnesium Level 1.7 1.6-2.6 mg/dL Total Bilirubin 0.4 0.2-1.0 mg/dL Aspartate Amino Transferase (AST) 16 13-40 U/L Alanine Aminotransferase (ALT) 26 7-40 U/L Alkaline Phosphatase 80 46-116 U/L B-Type Natriuretic Peptide 852.20 0-100 pg/mL Total Protein 7.8 5.7-8.2 g/dL Albumin 3.8 3.2-4.8 g/dL Time of 1ST Reevaluation: 16:40 Reevaluation 1ST: Unchanged Time of 2ND Reevaluation: 21:52 (The case was discussed with the admitting team (HPI, physical exam, labs and diagnostic tests that were available at the time of disposition, ED course, treatment plan) on the phone. They agreed to admit the patient to their service and assume care of this patient from this point forward. ROCKY Beard. ) Reevaluation 2ND: Improved Patient Education/Counseling: Diagnosis, Treatment Family Education/Counseling: No Family Present Comments MDM: patient presented with the above HPI.-cardia-----workup was initiated. rach rosario was found with the above mentioned diagnosis. the following medications were ordered: please refer to order lists of meds and tests obtained by myself Dr. Forman. Patient ED course and VS have been stabilized. Patient has been reassessed in e ED and remained in a stable condition. Pertinent incidental findings were discussed with the patient and/or family. Patient/family voices understanding and is agreeable with plan. Patient has been observed in the ED adequate length of time to insure improvement/stability. Escalation of care considered: Consideration of escalation to observation or admission Patient was ADMITTED to the medicine team for further evaluation and treatment of their presentation. All the reports of any imaging studies that were ordered by myself were reviewed by myself. SEPSIS Sepsis Screen Date sepsis recognized/suspect: Aug 24, 2025 Time Sepsis recognized/suspect: 1548 Recent Procedure: No On Antibiotic Therapy: No Respiratory Rate >20: No Heart Rate >90: No Temp<36 C (96.8 F) or >38.3 C: No SBP <90 or MAP <65 mmHG: No New Acute Mental Status Change: No Is the patient on CPAP, BIPAP,: No Physician Orders Waxing Machine Operator (08/24/25 ) Urinalysis (08/24/25 15:54) Chest Portable (08/24/25 15:54) Electrocardigram (08/24/25 15:54) Electrocardigram (08/24/25 16:54) Electrocardigram (08/24/25 18:54) B-Type Natriuretic Peptide (08/24/25 21:23) Ceftriaxone 1gm/50ml (Rocephin) (08/24/25 21:30) Vital Signs Date Time Temp Pulse Resp B/P (MAP) Pulse Ox O2 Delivery O2 Flow Rate FiO2 08/24/25 16:28 75 08/24/25 15:36 98.6 70 18 142/88 96 98.6 08/24/25 15:24 78 Laboratory Tests Test 08/24/25 16:23 Lactic Acid Level 1.2 mmol/L (0.4-2.0) White Blood Count 7.6 10^3/uL (4.4-10.8) Departure 1 Departure Time of Disposition: 17:00 Impression: Primary Impression: Acute exacerbation of CHF (congestive heart failure) Qualified Codes: I50.9 - Heart failure, unspecified Additional Impressions: COPD with acute exacerbation Chest pain Pneumonia Anemia Disposition: ADMITTED INPATIENT Admit to: Tele Condition: Guarded Discharged With: Self Critical Care Note Critical Care Time?: Yes (45 min-critical care time only) Critical care comment: Due to a high probability of clinically significant, life threatening deterioration, the patient required my highest level of preparedness to intervene emergently and I personally spent this critical care time directly and personally managing the patient. This critical care time included obtaining a history; examining the patient; pulse oximetry; ordering and review of studies; arranging urgent treatment with development of a management plan; evaluation of patient's response to treatment; frequent reassessment; and, discussions with other providers. This critical care time was performed to assess and manage the high probability of imminent, life-threatening deterioration that could result in multi-organ failure. It was exclusive of separately billable procedures and treating other patients and teaching time. Please see my other sections and the rest of the note for further information on patient assessment and treatment. Stability Stability form required: No Heart Score Heart Score: Heart Score Response (Comments) Value History Moderate Suspicious 1 EKG Normal 0 Age >65 2 Risk Factors >3 or Hx ASHD 2 Troponin Normal limit 0 Total 5 ISAIAH COSTA Aug 24, 2025 16:06 JESUS FORMAN DO Aug 24, 2025 21:24
[2025-08-24 16:37] LABS: Hematocrit 25.1 % (41.0-53.0); Hemoglobin 8.0 g/dL (13.5-17.5); Mean Corpuscular Hemoglobin 29.0 pg (28.0-32.0); Mean Corpuscular Volume 90.5 fL (80.0-100.0); Nucleated Red Blood Cells % 0.1 %
[2025-08-24 16:58] LABS: Alanine Aminotransferase 26 U/L (7-40); Albumin 3.8 g/dL (3.2-4.8); Alkaline Phosphatase 80 U/L (46-116); Anion Gap 8 (5-15); BUN/Creatinine Ratio 18.5 (10.0-20.0); Bilirubin, Total 0.4 mg/dL (0.2-1.0); Calcium 9.3 mg/dL (8.7-10.4); Carbon Dioxide 31 mmol/L (20-31); Chloride 102 mmol/L (98-107); Magnesium 1.7 mg/dL (1.6-2.6); Potassium 4.4 mmol/L (3.5-5.1); Sodium 141 mmol/L (136-145); Total Protein 7.8 g/dL (5.7-8.2)
[2025-08-24 16:59] LABS: Blood Urea Nitrogen 31 mg/dL (9-23); Glucose 144 mg/dL (74-106)
--- NOTE | 2025-08-24 18:12 | DVH ---
CHEST RADIOGRAPH INDICATION: CP/SOB TECHNIQUE: Single frontal view of the chest was obtained COMPARISON: XY CHEST PORTABLE on DOS: 02/19/24, XY CHEST PORTABLE on DOS: 08/27/23, XY CHEST PORTABLE on DOS: 08/26/23 FINDINGS: Lines and Tubes: None Lungs: Increased bilateral perihilar infiltrates with lower increased lower lobe airspace disease when compared to 11/25/2024 Pleura: No effusion. No pneumothorax. Cardiomediastinal contours: Unremarkable Bones: No acute osseous abnormality. IMPRESSION: 1. Cardiomegaly and increased pulmonary vascular markings with bibasilar airspace disease. Findings may represent congestive failure. 2. Findings have worsened since 11/25/2024.
[2025-08-24] MEDS ORDERED: HYDROcodone-ACET 5/325MG TAB PO PRN (22:00)
[2025-08-24] MEDS ORDERED: NITROGLYCERIN 0.4 MG SL TAB SL PRN (22:00)
[2025-08-24] MEDS ORDERED: ONDANSETRON HCL 4 MG/2 ML VIAL IV PRN (22:00)
[2025-08-24] MEDS ORDERED: AZITHROMYCIN 500MG/250ML 250 ML IV SCH (23:00)
[2025-08-24] MEDS: MORPHINE SULFATE 4 MG/ML SYR/VIAL ONE (23:47)
[2025-08-24] MEDS: methylPREDNISolone SOD SUCC 125 MG/2 ML VL IV ONE (23:49)
[2025-08-24] MEDS: FUROSEMIDE 40 MG/4 ML VIAL IV ONE (23:49)
[2025-08-24] MEDS: PANTOPRAZOLE 40 MG/10 ML VIAL INJ IV ONE (23:49)
[2025-08-24] MEDS: ACETAMINOPHEN 325 MG TAB PO PRN (23:50)
[2025-08-24] MEDS: MORPHINE SULFATE INJ 2 MG/ml SYRG IV PRN (23:51)
[2025-08-25] VITALS (19 sets, daily range): BP systolic 124–135; BP diastolic 80–101; PULSE 53–97; RESP 16–20; TEMP 97.3–98.2; O2SAT 94–100
[2025-08-25 00:57] LABS: Hematocrit 26.2 % (41.0-53.0); Hemoglobin 8.3 g/dL (13.5-17.5)
[2025-08-25] MEDS: IPRATROPIUM BROM 0.5 MG/2.5ML INH SOL NEB SCH (00:58)
--- NOTE | 2025-08-25 01:09 | DVHHP2 ---
Admitting Diagnosis: Chest Pain r/o ACS, Acute Anemia, Acute CHF, Pneumonia History of Present Illness History Source: Patient Exam Limitations: No limitations HPI Mr. David Layton is a 65-year-old male with past medical history of CAD s/p PCI KARMEN x3, COPD on home O2 2 L, congestive heart failure, diabetes, gout, dyslipidemia, hypertension, atrial fibrillation who presents with a chief complaint of chest pain. According to the patient, in July he was found unresponsive in his truck and was taken to a hospital in [facility] ([facility]) where he was treated for heart failure exacerbation and pneumonia, since being discharged from the hospital on 08/11/2025 he has been experiencing chest pain which he localizes to the midsternum, 10/10 in intensity, cramping in nature, worsened by lying on ipsilateral side and relieved by nitroglycerin. Associated with shortness of breaths. Notes having similar pain in the past when he was diagnosed to have myocardial infarction. Patient reports midsternal chest pain radiating to left lower rib cage and right lower rib cage area. Patient reports he was recently started on supplemental oxygen when he was discharged from [facility] in [place]. Patient denies headaches, dizziness, fevers, abdominal pain, melena, hematochezia. Home Meds Active Scripts Indomethacin (Indomethacin) 50 Mg Cap, 1 CAP PO TID, #9 CAP 1 Refill Prov:TERESA ANDREWS MD 01/05/25 Metolazone (Metolazone) 5 Mg Tab, 2.5 MG PO DAILY for 60 Days, #30 TAB Prov:VERONICA BASS MD 11/25/24 Doxycycline (Monohydrate) (Doxycycline) 100 Mg Cap, 100 MG PO BID, #14 CAP Prov:VERONICA BASS MD 11/25/24 Docusate Sodium (Colace) 100 Mg Cap, 1 CAP PO BID, #30 CAP Prov:RAMIRO HAMLIN MD 10/22/24 Hydrocodone-Acetaminophen (Hydrocodone Bitartrate/AC 5-325 mg) 1 Tab Tab, 1 TAB PO Q6HP PRN for 5 Days, #20 TAB Prov:RAMIRO HAMLIN MD 10/22/24 Acetaminophen W/ Codeine (Tylenol W/Cod #3) 1 Tab Tb, 1 TAB PO QIDPRN, #10 TAB 0 Refills Prov:ELVIN CARDENAS 11/10/23 Torsemide (Torsemide) 20 Mg Tab, 20 MG PO DAILY, #90 TAB Prov:EDWINA EATON MD 08/30/23 Clopidogrel Bisulfate (Plavix) 75 Mg Tab, 1 TAB PO DAILY, #90 TAB 3 Refills Prov:EDWINA EATON MD 08/30/23 Bumetanide (Bumetanide) 2 Mg Tab, 1 TAB PO DAILY, #90 TAB 1 Refill Prov:EDWINA EATON MD 08/30/23 Furosemide (Lasix) 40 Mg Tab, 40 MG PO DAILY, #90 TAB Prov:EDWINA EATON MD 08/30/23 Atorvastatin Calcium (Lipitor) 40 Mg Tab, 1 TAB PO QPM, #90 TAB 1 Refill Prov:EDWINA EATON MD 08/30/23 Aspirin (ASPIRIN 81) 81 Mg Tab, 81 MG PO DAILY, #90 TAB Prov:EDWINA EATON MD 08/30/23 Lisinopril (Lisinopril) 40 Mg Tab, 1 TAB PO DAILY for 30 Days, #30 TAB 5 Refills Prov:SEBASTIAN JNOES MD 05/08/23 Potassium Chloride (POTASSIUM CHLORIDE CR) 10 Meq Tb, 10 MEQ PO BID for 30 Days, #60 TAB Prov:SEBASTIAN JONES MD 05/08/23 Methylprednisolone (Medrol Dosepak) 4 Mg Sincere, 4 MG PO UD, #21 TAB UAD Prov:JASVIR ESCALERA NP 10/11/22 Atorvastatin Calcium (ATORVASTATIN CALCIUM) 20 Mg Tab, 40 MG PO HS for 30 Days, #30 TAB 4 Refills Prov:VALENTÍN MARLOW MD 12/24/21 Bumetanide (Bumetanide) 2 Mg Tab, 1 TAB PO BID for 30 Days, #60 TAB 5 Refills Prov:VALENTÍN MARLOW MD 12/24/21 Aspirin (Aspirin Low Strength) 81 Mg Chw, 81 MG PO DAILY for 30 Days, #30 TAB.CHEW 4 Refills Prov:VALENTÍN MARLOW MD 12/24/21 Reported Medications Tamsulosin Hcl (Tamsulosin Hcl) 0.4 Mg Cap, 0.4 MG PO HS, CAP 08/24/19 Allopurinol (ZYLOPRIM TABLET) 300 Mg Tb, 300 MG PO DAILY 03/09/19 Past Medical History Cardiac: CHF, HTN Endocrine: NIDDM Others Morbid obesity Others PCI, cardiac stents Patient Family History: Arthritis FH: aneurysm G8 MOTHER G8 MOTHER FH: aneurysm G8 MOTHER G8 MOTHER Family history: Diabetes mellitus G8 MOTHER G8 FATHER Family history: Hypercholesterolemia (situation) G8 MOTHER G8 FATHER Family history: Hypertension G8 MOTHER (aneursym) G8 FATHER G8 FATHER Family history: Hypertension G8 MOTHER (aneursym) G8 FATHER G8 FATHER Stroke G8 MOTHER No Family History of: Family history: Blood disorder Family history: Cardiovascular disease Smoker: No Hx (Negative) Alocohol: None Drugs: None Lives with: With family Domestic Violence: Neg Review of Systems Constitutional: No symptom reported, Weakness Ears, Nose, & Throat: No symptom reported Eyes: No symptom reported Pulmonary/Respiratory: Dyspnea Cardiovascular: Chest Pain Gastrointestinal: No symptom reported Genitourinary: No symptom reported Musculoskeletal: No symptom reported Skin: No symptom reported Psychiatric: No symptom reported Endocrine: No symptom reported Hemotologic/Lymphatic: No symptom reported H&P Exam Vital Signs Vital Signs Date Time Temp Pulse Resp B/P (MAP) Pulse Ox O2 Delivery O2 Flow Rate FiO2 08/24/25 23:51 75 14 134/80 08/24/25 23:30 98.2 100 98.2 08/24/25 19:30 Nasal Cannula* 2 28 General Appeara: Well developed, Well nourished, Normal Appearance Head Exam: Normal inspection Neck Exam: Normal inspection, Non-tender, Normal alignment Eye Exam: bilateral eye Normal inspection, bilateral eye PERRL, bilateral eye EOMI Ear Exam: bilateral ear Auricle normal Nasal Exam: Normal inspection Mouth: Normal Inspection Pulmonary/Respiratory: Normal inspection, Normal breath sounds, Lungs clear Cardiovascular/Chest: Normal inspection, Regular rate, Normal Rhythm Peripheral Pulses: 2+ dorsalis pedis (R), 2+ dorsalis pedis (L), 2+ Radial (R), 2+ Radial (L) Abdominal Exam: Normal bowel sounds, Soft, No tenderness Back Exam: Normal inspection Neuro/Mental St: Alert, Oriented Appearance: Appropriate appearance, Appropriate insight Eye contact/ Speech: Cooperative, Good eye contact, Normal speech Thoughts/Psych: Normal thought pattern Skin Exam: Normal inspection, Normal color, Warm/dry SEPSIS Sepsis Screen Date sepsis recognized/suspect: Aug 24, 2025 Time Sepsis recognized/suspect: 1929 Recent Procedure: No On Antibiotic Therapy: No Respiratory Rate >20: No Heart Rate >90: Yes Temp<36 C (96.8 F) or >38.3 C: No SBP <90 or MAP <65 mmHG: No New Acute Mental Status Change: No Is the patient on CPAP, BIPAP,: No Physician Orders Admit (08/24/25 21:53) Stool Occult Blood (08/24/25:53) * Cardiology Consult (08/24/25:53) Echo 2d Mode Cardiac Dop (08/24/25:53) Troponin-I Hs (08/25/25 06:00) Troponin-I Hs (08/25/25 14:00) Basic Metabolic Panel (08/25/25 05:00) Basic Metabolic Panel (08/26/25 05:00) Complete Blood Count (08/25/25 05:00) Complete Blood Count (08/26/25 05:00) Hemoglobin & Hematocrit (08/25/25 00:00) Hemoglobin & Hematocrit (08/25/25 12:00) Full Code (08/24/25 21:53) Cardiac Diet-2gna,Lofat,Lochol (08/25/25 Breakfast) Nitroglycerin Sublingual (Ntrostat Subli (08/24/25 22:00) Morphine Sulfate Injection (08/24/25 22:00) Stat Ekg For Chest Pain (08/24/25 21:53) Notify Md Of Changes From Base (08/24/25 21:53) Filler Wiper For 24 Hours (08/24/25 21:53) Emergency Dysrhythmia Protocol (08/24/25 21:53) Rhythm Strips Once Every Shift (08/24/25 21:53) Oxygen By Nasal Cannula (08/24/25 21:53) Ondansetron Hcl (Zofran) (08/24/25 22:00) Atorvastatin (Lipitor) (08/24/25 22:00) Pantoprazole (Protonix) (08/25/25 10:00) Hydrocodone-Acet 5/325mg Tab ([place] 5/32 (08/24/25 22:00) Acetaminophen Tablet (Tylenol Tablet) (08/24/25 22:00) Furosemide Injection (Lasix Injection) (08/25/25 10:00) Strict I & O QSHIFT (08/24/25 22:09) Maintain Fluid Restrictions QSHIFT (08/24/25 22:09) Rapid Influenza A&B (08/24/25 22:56) Dvh Inhouse Covid19 (08/24/25 22:56) Ceftriaxone 1gm/50ml (Rocephin) (08/25/25 08:00) Ipratropium Medneb (Atrovent Medneb) (08/25/25 00:00) Vital Signs Date Time Temp Pulse Resp B/P (MAP) Pulse Ox O2 Delivery O2 Flow Rate FiO2 08/24/25 23:51 75 14 134/80 08/24/25 23:49 134/89 08/24/25 23:30 98.2 79 18 134/89 (104) 100 98.2 08/24/25 19:30 Nasal Cannula* 2 28 08/24/25 19:30 80 18 152/85 (107) 95 Laboratory Tests Test 08/24/25 16:23 Lactic Acid Level 1.2 mmol/L (0.4-2.0) White Blood Count 7.6 10^3/uL (4.4-10.8) Medications Medications Dose Ordered Sig/Donnie Route Start Time Stop Time Status Last Admin Dose Admin Acetaminophen 650 mg Q6HPRN PRN PO 08/24/25 22:00 08/24/25 23:50 650 MG Furosemide 40 mg ONCE ONCE IV 08/24/25 16:00 08/24/25 16:01 DC 08/24/25 23:49 40 MG Methylprednisolone Sodium Succinate 125 mg ONCE ONCE IV 08/24/25 16:00 08/24/25 16:01 DC 08/24/25 23:49 125 MG Morphine Sulfate 2 mg Q30M PRN IV 08/24/25 22:00 08/24/25 23:51 2 MG Pantoprazole Sodium 40 mg ONCE ONCE IV 08/24/25 22:00 08/24/25 22:28 DC 08/24/25 23:49 40 MG Labs/Xrays Labs Test 08/25/25 00:35 08/24/25 22:00 08/24/25 16:23 Range/Units Troponin I High Sensitivity 28 </=54 ng/L B-Type Natriuretic Peptide 873.03 0-100 pg/mL White Blood Count 7.6 4.4-10.8 10^3/uL Red Blood Count 2.77 L 4.5-5.90 10^6/uL Mean Corpuscular Volume 90.5 80.0-100.0 fL Mean Corpuscular Hemoglobin 29.0 28.0-32.0 pg Mean Corpuscular Hemoglobin Concent 32.0 32.0-36.0 g/dL Red Cell Distribution Width 15.3 H 11.8-14.3 % Platelet Count 280 140-450 10^3/uL Mean Platelet Volume 8.9 6.9-10.8 fL Neutrophils (%) (Auto) 85.9 H 37.0-80.0 % Lymphocytes (%) (Auto) 7.2 L 10.0-50.0 % Monocytes (%) (Auto) 6.2 0.0-12.0 % Eosinophils (%) (Auto) 0.3 0.0-7.0 % Basophils (%) (Auto) 0.4 0.0-2.0 % Neutrophils # (Auto) 6.5 1.6-8.6 10 ^3/uL Lymphocytes # (Auto) 0.5 0.4-5.4 10 ^3/uL Monocytes # (Auto) 0.5 0-1.3 10 ^3/uL Eosinophils # (Auto) 0 0-0.8 10 ^3/uL Basophils # (Auto) 0 0-0.2 10 ^3/uL Nucleated Red Blood Cells 0.1 % Sodium Level 141 136-145 mmol/L Potassium Level 4.4 3.5-5.1 mmol/L Chloride Level 102 98-107 mmol/L Carbon Dioxide Level 31 20-31 mmol/L Anion Gap 8 5-15 Blood Urea Nitrogen 31 H 9-23 mg/dL Creatinine 1.68 H 0.700-1.30 mg/dL Glomerular Filtration Rate Calc 45 >90 mL/min BUN/Creatinine Ratio 18.5 10.0-20.0 Serum Glucose 144 H 74-106 mg/dL Lactic Acid Level 1.2 0.4-2.0 mmol/L Calcium Level 9.3 8.7-10.4 mg/dL Magnesium Level 1.7 1.6-2.6 mg/dL Total Bilirubin 0.4 0.2-1.0 mg/dL Aspartate Amino Transferase (AST) 16 13-40 U/L Alanine Aminotransferase (ALT) 26 7-40 U/L Alkaline Phosphatase 80 46-116 U/L Total Protein 7.8 5.7-8.2 g/dL Albumin 3.8 3.2-4.8 g/dL Assessment/Plan Problem List: (1) CHEST PAIN, UNSPECIFIED (2) ACUTE CHRONIC SYSTOLIC/DIALSTOLIC HRT FAILURE (3) Pneumonia (4) SHORTNESS OF BREATH (5) Anemia Plan This is a 65 yo male with listed medical history who presents with chest pain, shortness of breath, chills , body aches. Patient found to have 1. Chest pain r/o ACS 2. Acute on chronic CHF 3. Pneumonia ? 4. Acute Anemia 5. Hypertension 6. DM type 2 7. GOUT 8. Morbid obesity class III 9. History of PCI , cardiac stents 10. COPD without exacerbation Plan Admit Telemetry Cardiology consultation, 2D echocardiogram, serial troponin levels, Statin, hold aspirin due to acute anemia, follow stool occult blood results Monitor H&H daily BMP, CBC PT evaluation Discussed all above with patient who verbalizes agreement and understanding of care plan. All questions were answered. Plan discussed with: Patient, Other Code Visit Code Visit Total Time (mins): 45 Additional Comments Additional Comments Additional Comments Patient's chart is reviewed and discussed with the nurse practitioner. Patient is seen and evaluated by me earlier today. 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 I agree with the nurse practitioner's evaluation, documentation, assessment and care plan as outlined. ELLE PISANO Aug 25, 2025 01:09 KRUNAL LEWIS MD Aug 25, 2025 11:55
[2025-08-25 01:49] LABS: Urine Protein, UAD TRACE (Negative)
[2025-08-25] MEDS: KETOROLAC TROMETH 30 MG/ML 1ML VIAL IV ONE (02:39)
[2025-08-25] MEDS: ATORVASTATIN 20 MG TAB PO SCH (02:39)
[2025-08-25 06:04] LABS: COVID19 ANTIGEN SOFIA FIA NEGATIVE (NEGATIVE)
[2025-08-25 06:16] LABS: Hematocrit 24.4 % (41.0-53.0); Hemoglobin 8.0 g/dL (13.5-17.5); Mean Corpuscular Hemoglobin 29.7 pg (28.0-32.0); Mean Corpuscular Volume 90.8 fL (80.0-100.0); Nucleated Red Blood Cells % 0.1 %
[2025-08-25 06:22] LABS: Anion Gap 10 (5-15); Calcium 9.3 mg/dL (8.7-10.4); Carbon Dioxide 29 mmol/L (20-31); Chloride 100 mmol/L (98-107); Potassium 4.7 mmol/L (3.5-5.1); Sodium 139 mmol/L (136-145)
[2025-08-25 06:28] LABS: BUN/Creatinine Ratio 25.4 (10.0-20.0); Blood Urea Nitrogen 45 mg/dL (9-23); Glucose 194 mg/dL (74-106)
[2025-08-25] MEDS: FUROSEMIDE 40 MG/4 ML VIAL IV SCH (09:50)
[2025-08-25] MEDS: PANTOPRAZOLE 40 MG/10 ML VIAL INJ IV SCH (09:53)
[2025-08-25 11:29] LABS: Iron 68.0 ug/dL (65-175)
[2025-08-25 11:32] LABS: Total Iron Binding Capacity 291.0 ug/dL (250-425)
[2025-08-25] MEDS ORDERED: HYDROcodone-ACET 5/325MG TAB PO PRN (12:15)
[2025-08-25] MEDS: methylPREDNISolone SOD SUCC 40 MG/ML VL IV SCH (12:45)
[2025-08-25] MEDS: IRON SUCROSE COMPLEX 110 ML IV SCH (12:46)
[2025-08-25] MEDS: MORPHINE SULFATE 4 MG/ML SYR/VIAL IV PRN (13:11)
--- NOTE | 2025-08-25 16:17 | DVHINCON2 ---
Date of service: Aug 25, 2025 Referring Physician Kisha Chirinos NP Reason for Consultation Acute kidney injury History of Present Illness Mr. Layton is a 65-year-old male who presents to the hospital for further evaluation and management of chest pain. His chronic medical conditions include coronary artery disease, heart failure diabetes and hypertension. He denies prior knowledge of any underlying kidney insufficiency. Current consultation requested due to serum creatinine in the mid to upper one range. Baseline creatinine is less than one earlier this year. Patient denies recent gross hematuria dysuria, lower extremity edema, diarrhea, presyncopal symptoms. Past Medical History Diabetes Hypertension Coronary artery disease HFrEF Atrial fibrillation Hyperuricemia with gout Allergies: Coded Allergies: NO KNOWN ALLERGIES (Unverified , 06/29/21) Home Meds Active Scripts Indomethacin (Indomethacin) 50 Mg Cap, 1 CAP PO TID, #9 CAP 1 Refill Prov:TERESA ANDREWS MD 01/05/25 Metolazone (Metolazone) 5 Mg Tab, 2.5 MG PO DAILY for 60 Days, #30 TAB Prov:VERONICA BASS MD 11/25/24 Doxycycline (Monohydrate) (Doxycycline) 100 Mg Cap, 100 MG PO BID, #14 CAP Prov:VERONICA BASS MD 11/25/24 Docusate Sodium (Colace) 100 Mg Cap, 1 CAP PO BID, #30 CAP Prov:RAMIRO HAMLIN MD 10/22/24 Hydrocodone-Acetaminophen (Hydrocodone Bitartrate/AC 5-325 mg) 1 Tab Tab, 1 TAB PO Q6HP PRN for 5 Days, #20 TAB Prov:RAMIRO HAMLIN MD 10/22/24 Acetaminophen W/ Codeine (Tylenol W/Cod #3) 1 Tab Tb, 1 TAB PO QIDPRN, #10 TAB 0 Refills Prov:ELVIN CARDENAS 11/10/23 Torsemide (Torsemide) 20 Mg Tab, 20 MG PO DAILY, #90 TAB Prov:EDWINA EATON MD 08/30/23 Clopidogrel Bisulfate (Plavix) 75 Mg Tab, 1 TAB PO DAILY, #90 TAB 3 Refills Prov:EDWINA EATON MD 08/30/23 Bumetanide (Bumetanide) 2 Mg Tab, 1 TAB PO DAILY, #90 TAB 1 Refill Prov:EDWINA EATON MD 08/30/23 Furosemide (Lasix) 40 Mg Tab, 40 MG PO DAILY, #90 TAB Prov:EDWINA EATON MD 08/30/23 Atorvastatin Calcium (Lipitor) 40 Mg Tab, 1 TAB PO QPM, #90 TAB 1 Refill Prov:EDWINA EATON MD 08/30/23 Aspirin (ASPIRIN 81) 81 Mg Tab, 81 MG PO DAILY, #90 TAB Prov:EDWINA EATON MD 08/30/23 Lisinopril (Lisinopril) 40 Mg Tab, 1 TAB PO DAILY for 30 Days, #30 TAB 5 Refills Prov:SEBASTIAN JONES MD 05/08/23 Potassium Chloride (POTASSIUM CHLORIDE CR) 10 Meq Tb, 10 MEQ PO BID for 30 Days, #60 TAB Prov:SEBASTIAN JONES MD 05/08/23 Methylprednisolone (Medrol Dosepak) 4 Mg Sincere, 4 MG PO UD, #21 TAB UAD Prov:JASVIR ESCALERA NP 10/11/22 Atorvastatin Calcium (ATORVASTATIN CALCIUM) 20 Mg Tab, 40 MG PO HS for 30 Days, #30 TAB 4 Refills Prov:VALENTÍN MARLOW MD 12/24/21 Bumetanide (Bumetanide) 2 Mg Tab, 1 TAB PO BID for 30 Days, #60 TAB 5 Refills Prov:VALENTÍN MARLOW MD 12/24/21 Aspirin (Aspirin Low Strength) 81 Mg Chw, 81 MG PO DAILY for 30 Days, #30 TAB.CHEW 4 Refills Prov:VALENTÍN MARLOW MD 12/24/21 Reported Medications Tamsulosin Hcl (Tamsulosin Hcl) 0.4 Mg Cap, 0.4 MG PO HS, CAP 08/24/19 Allopurinol (ZYLOPRIM TABLET) 300 Mg Tb, 300 MG PO DAILY 03/09/19 Current Medications Current Medications Medications (Trade) Dose Ordered Sig/Donnie Route PRN Reason Start Time Stop Time Status Last Admin Nitroglycerin (Ntrostat Sublingual) 0.4 mg Q5MINP PRN SL FOR CHEST PAIN 08/24/25 22:00 Morphine Sulfate 2 mg Q30M PRN IV FOR CHEST PAIN 08/24/25 22:00 08/24/25 23:51 Ondansetron HCl (Zofran) 4 mg Q6HPRN PRN IV NAUSEA / VOMITING 08/24/25 22:00 Atorvastatin Calcium (Lipitor) 40 mg HS PO 08/24/25 22:00 08/25/25 02:39 Pantoprazole Sodium (Protonix) 40 mg DAILY IV 08/25/25 10:00 08/25/25 11:11 DC 08/25/25 09:53 Acetaminophen/ Hydrocodone Bitart ([place] 5/325MG Tab) 1 tab Q6HPRN PRN PO PAIN SCALE 1 THRU 6 08/24/25 22:00 08/25/25 12:05 DC Acetaminophen (Tylenol Tablet) 650 mg Q6HPRN PRN PO PAIN SCALE 1-3 OR TEMP>100.4 08/24/25 22:00 08/25/25 08:18 Furosemide (Lasix Injection) 40 mg BID IV 08/25/25 10:00 08/25/25 09:50 Azithromycin 250 ml @ 125 mls/hr DAILY IV 08/24/25 23:00 08/24/25 23:31 DC Ceftriaxone Sodium 50 ml @ 100 mls/hr DAILY@BREAKFAST IV 08/25/25 08:00 08/25/25 11:11 DC 08/25/25 08:12 Ipratropium [place] (Atrovent Medneb) 0.5 mg Q6HR NEB 08/25/25 00:00 08/25/25 11:55 Iron Sucrose 110 ml @ 110 mls/hr DAILY@1200 IV 08/25/25 12:00 08/29/25 11:59 08/25/25 12:46 Pantoprazole Sodium (Protonix Tablet) 40 mg BID@0600,1700 PO 08/25/25 17:00 Tamsulosin HCl (Flomax) 0.4 mg QPM PO 08/25/25 18:00 Morphine Sulfate 2 mg Q4HPRN PRN IV SEVERE PAIN (7-10 PAIN SCALE) 08/25/25 12:00 08/25/25 13:11 Methylprednisolone Sodium Succinate (Solu Medrol) 40 mg BID IV 08/25/25 12:04 08/25/25 12:45 Acetaminophen/ Hydrocodone Bitart ([place] 5/325MG Tab) 1 tab Q6HPRN PRN PO PAIN SCALE 4 THRU 6 08/25/25 12:15 Family History: Arthritis FH: aneurysm G8 MOTHER G8 MOTHER FH: aneurysm G8 MOTHER G8 MOTHER Family history: Diabetes mellitus G8 MOTHER G8 FATHER Family history: Hypercholesterolemia (situation) G8 MOTHER G8 FATHER Family history: Hypertension G8 MOTHER (aneursym) G8 FATHER G8 FATHER Family history: Hypertension G8 MOTHER (aneursym) G8 FATHER G8 FATHER Stroke G8 MOTHER No Family History of: Family history: Blood disorder Family history: Cardiovascular disease Review of Systems As per history of present illness otherwise all systems are reviewed and are noncontributory. H&P Exam Vital Signs/I&O Vital Sign Date Time Temp Pulse Resp B/P (MAP) Pulse Ox O2 Delivery O2 Flow Rate FiO2 08/25/25 13:41 96 20 126/96 08/25/25 13:00 97.3 99 97.3 08/25/25 11:55 Nasal Cannula* 2 28 Intake and Output 08/24/25 08/25/25 19:00 07:00 Intake Total 480 ml Output Total 300 ml Balance 180 ml Intake Oral 480 ml Output Urine Total 300 ml Physical Exam Gen: nad, obese no acute distress, slightly anxious heent: nc/at, mmm lungs: cta anteriorly cvs: no rub abd: soft, bowel sounds audible ext: Trace edema skin: no rash neuro: alert and oriented Labs/Diagnostic Data Labs/Diagnostic Data Laboratory Tests Test 08/25/25 14:40 08/25/25 05:12 08/25/25 00:35 08/25/25 00:33 Range/Units Troponin I High Sensitivity 26 25 </=54 ng/L White Blood Count 5.7 4.4-10.8 10^3/uL Red Blood Count 2.68 L 4.5-5.90 10^6/uL Hemoglobin 8.0 L 8.3 L 13.5-17.5 g/dL Hematocrit 24.4 L 26.2 L 41.0-53.0 % Mean Corpuscular Volume 90.8 80.0-100.0 fL Mean Corpuscular Hemoglobin 29.7 28.0-32.0 pg Mean Corpuscular Hemoglobin Concent 32.7 32.0-36.0 g/dL Red Cell Distribution Width 15.3 H 11.8-14.3 % Platelet Count 273 140-450 10^3/uL Mean Platelet Volume 9.3 6.9-10.8 fL Neutrophils (%) (Auto) 85.4 H 37.0-80.0 % Lymphocytes (%) (Auto) 10.8 10.0-50.0 % Monocytes (%) (Auto) 3.6 0.0-12.0 % Eosinophils (%) (Auto) 0.1 0.0-7.0 % Basophils (%) (Auto) 0.1 0.0-2.0 % Neutrophils # (Auto) 4.8 1.6-8.6 10 ^3/uL Lymphocytes # (Auto) 0.6 0.4-5.4 10 ^3/uL Monocytes # (Auto) 0.2 0-1.3 10 ^3/uL Eosinophils # (Auto) 0 0-0.8 10 ^3/uL Basophils # (Auto) 0 0-0.2 10 ^3/uL Nucleated Red Blood Cells 0.1 % D-Dimer, Quantitative 1.12 H 0.0-0.49 mg/L FEU Sodium Level 139 136-145 mmol/L Potassium Level 4.7 3.5-5.1 mmol/L Chloride Level 100 98-107 mmol/L Carbon Dioxide Level 29 20-31 mmol/L Anion Gap 10 5-15 Blood Urea Nitrogen 45 #H 9-23 mg/dL Creatinine 1.77 H 0.700-1.30 mg/dL Glomerular Filtration Rate Calc 42 >90 mL/min BUN/Creatinine Ratio 25.4 H 10.0-20.0 Serum Glucose 194 H 74-106 mg/dL Uric Acid 5.9 3.7-9.2 mg/dL Calcium Level 9.3 8.7-10.4 mg/dL Iron Level 68 65-175 ug/dL Total Iron Binding Capacity 291 250-425 ug/dL Percent Iron Saturation 23.4 20-55 % Urine Color Light-yellow Yellow Urine Clarity Clear Clear Urine pH 5.5 5.0-9.0 Urine Specific [place] 1.014 1.001-1.035 Urine Protein Trace H Negative Urine Ketones Negative Negative Urine Blood Negative Negative /uL Urine Nitrite Negative Negative Urine Bilirubin Negative Negative Urine Urobilinogen Normal Negative mg/dL Urine Leukocyte Esterase Negative Negative /uL Urine RBC 1 0 - 3 /hpf Urine Microscopic WBC 1 0-3 /HPF Urine Squamous Epithelial Cells Few <5 /hpf Urine Bacteria None seen None Seen /hpf Urine Glucose Normal Normal mg/dL Test 08/25/25 00:16 08/24/25 22:00 08/24/25 19:20 08/24/25 17:24 Range/Units Influenza Type A Antigen Negative Negative Influenza Type B Antigen Negative Negative SARS-CoV-2 Antigen (Rapid) Negative NEGATIVE Troponin I High Sensitivity 28 32 31 </=54 ng/L B-Type Natriuretic Peptide 873.03 0-100 pg/mL Test 08/24/25 16:23 Range/Units White Blood Count 7.6 4.4-10.8 10^3/uL Red Blood Count 2.77 L 4.5-5.90 10^6/uL Hemoglobin 8.0 L 13.5-17.5 g/dL Hematocrit 25.1 L 41.0-53.0 % Mean Corpuscular Volume 90.5 80.0-100.0 fL Mean Corpuscular Hemoglobin 29.0 28.0-32.0 pg Mean Corpuscular Hemoglobin Concent 32.0 32.0-36.0 g/dL Red Cell Distribution Width 15.3 H 11.8-14.3 % Platelet Count 280 140-450 10^3/uL Mean Platelet Volume 8.9 6.9-10.8 fL Neutrophils (%) (Auto) 85.9 H 37.0-80.0 % Lymphocytes (%) (Auto) 7.2 L 10.0-50.0 % Monocytes (%) (Auto) 6.2 0.0-12.0 % Eosinophils (%) (Auto) 0.3 0.0-7.0 % Basophils (%) (Auto) 0.4 0.0-2.0 % Neutrophils # (Auto) 6.5 1.6-8.6 10 ^3/uL Lymphocytes # (Auto) 0.5 0.4-5.4 10 ^3/uL Monocytes # (Auto) 0.5 0-1.3 10 ^3/uL Eosinophils # (Auto) 0 0-0.8 10 ^3/uL Basophils # (Auto) 0 0-0.2 10 ^3/uL Nucleated Red Blood Cells 0.1 % Sodium Level 141 136-145 mmol/L Potassium Level 4.4 3.5-5.1 mmol/L Chloride Level 102 98-107 mmol/L Carbon Dioxide Level 31 20-31 mmol/L Anion Gap 8 5-15 Blood Urea Nitrogen 31 H 9-23 mg/dL Creatinine 1.68 H 0.700-1.30 mg/dL Glomerular Filtration Rate Calc 45 >90 mL/min BUN/Creatinine Ratio 18.5 10.0-20.0 Serum Glucose 144 H 74-106 mg/dL Lactic Acid Level 1.2 0.4-2.0 mmol/L Calcium Level 9.3 8.7-10.4 mg/dL Magnesium Level 1.7 1.6-2.6 mg/dL Total Bilirubin 0.4 0.2-1.0 mg/dL Aspartate Amino Transferase (AST) 16 13-40 U/L Alanine Aminotransferase (ALT) 26 7-40 U/L Alkaline Phosphatase 80 46-116 U/L Troponin I High Sensitivity 33 </=54 ng/L B-Type Natriuretic Peptide 852.20 0-100 pg/mL Total Protein 7.8 5.7-8.2 g/dL Albumin 3.8 3.2-4.8 g/dL Assessment IMP: 1) Hemodynamically mediated acute kidney injury and vasomotor nephropathy in the setting of FELECIA inhibitor, concurrent NSAIDs as outpatient 2) CKD stage II 3) type 2 diabetes 4) hypertension 5) HFrEF 6) Atrial fibrillation REC: - agree with cessation of lisinopril and indomethacin as inpatient - we will check urine studies, serial chemistry panels - anticipate improvement in kidney function with conservative means - discussed plan of care from Nephrology perspective with Mr. Layton. Thank you for the consultation. Plan discussed with: Patient JINA SANCHEZ MD Aug 25, 2025 16:17
[2025-08-25 18:12] LABS: Urine Protein, UAD Negative (Negative)
[2025-08-25] MEDS: PANTOPRAZOLE 40 MG TAB PO SCH (18:44)
[2025-08-25] MEDS: TAMSULOSIN HYDROCHLORIDE 0.4 MG CAP PO SCH (18:44)
[2025-08-25] MEDS ORDERED: PANT1INJ3 PO (19:58)
[2025-08-25] MEDS ORDERED: GABA-339 PO ×2 (19:58→20:42)
[2025-08-25] MEDS ORDERED: PRE1T PO (19:58)
[2025-08-25] MEDS ORDERED: AMIO200T33 PO (19:58)
[2025-08-25] MEDS ORDERED: APIX5TAB PO (19:59)
[2025-08-25] MEDS ORDERED: GABAPENTIN 300 MG CAP PO PRN (20:45)
[2025-08-26] VITALS (15 sets, daily range): BP systolic 105–142; BP diastolic 76–106; PULSE 63–83; RESP 16–19; TEMP 97.6–97.7; O2SAT 97–100
[2025-08-26] MEDS: DOCUSATE SOD 100 MG CAP PO SCH (03:09)
[2025-08-26 07:59] LABS: Chloride 100 mmol/L (98-107); Potassium 4.6 mmol/L (3.5-5.1); Sodium 138 mmol/L (136-145)
[2025-08-26 08:00] LABS: Anion Gap 10 (5-15); Carbon Dioxide 28 mmol/L (20-31)
[2025-08-26 08:01] LABS: Calcium 9.7 mg/dL (8.7-10.4)
[2025-08-26 08:05] LABS: BUN/Creatinine Ratio 23.5 (10.0-20.0)
[2025-08-26 08:09] LABS: Glucose 126 mg/dL (74-106)
[2025-08-26 08:10] LABS: Blood Urea Nitrogen 48 mg/dL (9-23)
[2025-08-26 08:11] LABS: Hematocrit 24.2 % (41.0-53.0); Hemoglobin 8.0 g/dL (13.5-17.5); Mean Corpuscular Hemoglobin 30.0 pg (28.0-32.0); Mean Corpuscular Volume 91.0 fL (80.0-100.0); Nucleated Red Blood Cells % 0.8 %
[2025-08-26] MEDS ORDERED: DOCUSATE SOD 100 MG CAP PO SCH (10:00)
--- NOTE | 2025-08-26 10:07 | ECG ---
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
--- NOTE | 2025-08-26 10:08 | ECG ---
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
[2025-08-26] MEDS: ALLOPURINOL 100 MG TAB PO SCH (10:34)
--- NOTE | 2025-08-26 12:20 | DVHPN2 ---
Progress Note Date Seen: Aug 26, 2025 Medical Necessity Reason Pt with a Central, PICC or Fol: No Subjective Patient reports: No new complaints Objective vital signs Vital Sign Date Time Temp Pulse Resp B/P (MAP) Pulse Ox O2 Delivery O2 Flow Rate FiO2 08/26/25 10:36 81 19 115/86 08/26/25 07:03 100 08/26/25 06:56 Nasal Cannula 3.0 08/26/25 06:56 32 08/26/25 05:00 97.6 97.6 Total Intake and Output 08/25/25 08/25/25 08/26/25 15:00 23:00 07:00 Intake Total 700 ml 480 ml Output Total 350 ml 300 ml Balance 350 ml 180 ml medications Current Medications Medications Dose Ordered Sig/Donnie Route Start Time Stop Time Status Last Admin Dose Admin Nitroglycerin 0.4 mg Q5MINP PRN SL 08/24/25 22:00 Morphine Sulfate 2 mg Q30M PRN IV 08/24/25 22:00 08/24/25 23:51 2 MG Ondansetron HCl 4 mg Q6HPRN PRN IV 08/24/25 22:00 Atorvastatin Calcium 40 mg HS PO 08/24/25 22:00 08/25/25 22:17 40 MG Acetaminophen 650 mg Q6HPRN PRN PO 08/24/25 22:00 08/25/25 08:18 650 MG Ipratropium [place] 0.5 mg Q6HR NEB 08/25/25 00:00 08/26/25 06:55 0.5 MG Iron Sucrose 110 ml @ 110 mls/hr DAILY@1200 IV 08/25/25 12:00 08/29/25 11:59 08/25/25 12:46 110 MLS/HR Pantoprazole Sodium 40 mg BID@0600,1700 PO 08/25/25 17:00 08/26/25 06:05 40 MG Tamsulosin HCl 0.4 mg QPM PO 08/25/25 18:00 08/25/25 18:44 0.4 MG Morphine Sulfate 2 mg Q4HPRN PRN IV 08/25/25 12:00 08/26/25 10:36 2 MG Methylprednisolone Sodium Succinate 40 mg BID IV 08/25/25 12:04 08/25/25 12:45 40 MG Acetaminophen/ Hydrocodone Bitart 1 tab Q6HPRN PRN PO 08/25/25 12:15 Allopurinol 300 mg DAILY PO 08/26/25 10:00 08/26/25 10:34 300 MG Gabapentin 600 mg BID PRN PO 08/25/25 20:45 Docusate Sodium 100 mg BID PO 08/26/25 03:00 08/26/25 10:34 100 MG Examination Gen: Appears stated age, NAD Heart: RRR, normal S1 and S2 Lungs: Bilateral air entry, no rales Ext: No edema Neuro: alert and oriented x 4 laboratory and microbiology Laboratory Tests 08/26/25 06:50 Test 08/26/25 06:50 Range/Units Serum Glucose 126 H 74-106 mg/dL Labs and/or images reviewed: Labs reviewed by me Problem List/Assessment/Plan Problem List/Assessment/Plan IMP: 1) Hemodynamically mediated acute kidney injury and vasomotor nephropathy in the setting of FELECIA inhibitor, concurrent NSAIDs as outpatient 2) CKD stage II 3) type 2 diabetes 4) hypertension 5) HFrEF 6) Atrial fibrillation REC: -BMP in am -Slight decline in kidney function noted -Agree with discontinuation of loop diuretic -Strict I&Os -Glycemic and blood pressure control -Avoidance of RAAS inhibitors, indomethacin and contrast studies if able during time course of JENNI -Will continue to follow Plan discussed with: Patient RIVERAJASON Flores VICE PRESIDENT OF INSTRUCTION Aug 26, 2025 12:20
--- NOTE | 2025-08-26 15:22 | DVHPN2 ---
Progress Note - Dictate Date Seen: Aug 26, 2025 Medical Necessity Reason Pt with a Central, PICC or Fol: No Subjective Alert awake oriented x3. Complains of some productive cough with the phlegm. vital signs Vital Sign Date Time Temp Pulse Resp B/P (MAP) Pulse Ox O2 Delivery O2 Flow Rate FiO2 08/26/25 13:00 97.7 74 19 110/78 (89) 99 97.7 08/26/25 12:53 Nasal Cannula 2.0 08/26/25 12:53 28 Total Intake and Output 08/25/25 08/25/25 08/26/25 15:00 23:00 07:00 Intake Total 700 ml 480 ml Output Total 350 ml 300 ml Balance 350 ml 180 ml medications Current Medications Medications Dose Ordered Sig/Donnie Route Start Time Stop Time Status Last Admin Dose Admin Nitroglycerin 0.4 mg Q5MINP PRN SL 08/24/25 22:00 Morphine Sulfate 2 mg Q30M PRN IV 08/24/25 22:00 08/24/25 23:51 2 MG Ondansetron HCl 4 mg Q6HPRN PRN IV 08/24/25 22:00 Atorvastatin Calcium 40 mg HS PO 08/24/25 22:00 08/25/25 22:17 40 MG Acetaminophen 650 mg Q6HPRN PRN PO 08/24/25 22:00 08/25/25 08:18 650 MG Ipratropium [place] 0.5 mg Q6HR NEB 08/25/25 00:00 08/26/25 12:53 0.5 MG Iron Sucrose 110 ml @ 110 mls/hr DAILY@1200 IV 08/25/25 12:00 08/29/25 11:59 08/26/25 12:24 110 MLS/HR Pantoprazole Sodium 40 mg BID@0600,1700 PO 08/25/25 17:00 08/26/25 06:05 40 MG Tamsulosin HCl 0.4 mg QPM PO 08/25/25 18:00 08/25/25 18:44 0.4 MG Morphine Sulfate 2 mg Q4HPRN PRN IV 08/25/25 12:00 08/26/25 10:36 2 MG Methylprednisolone Sodium Succinate 40 mg BID IV 08/25/25 12:04 08/25/25 12:45 40 MG Acetaminophen/ Hydrocodone Bitart 1 tab Q6HPRN PRN PO 08/25/25 12:15 Allopurinol 300 mg DAILY PO 08/26/25 10:00 08/26/25 10:34 300 MG Gabapentin 600 mg BID PRN PO 08/25/25 20:45 Docusate Sodium 100 mg BID PO 08/26/25 03:00 08/26/25 10:34 100 MG objective Alert awake oriented x3 comfortable in bed. no acute cardiopulmonary distress. HEENT neck supple no JVD. Heart regular rate rhythm S1-S2. Lungs fair air movement without wheezing. Abdomen soft obese positive bowel sounds. Extremities improved edema. laboratory and microbiology Laboratory Tests 08/26/25 06:50 Test 08/26/25 06:50 Range/Units Serum Glucose 126 H 74-106 mg/dL Assessment/Plan Patient's Lasix has been discontinued by associate director of development due to worsening kidney function. Patient has a CKD three. Once again counseled and educated regarding oral fluid restriction to 1.5 L at home. I will add Mucomyst to breathing treatments to loosen up the phlegm given his complaints. Otherwise continue rest of supportive care and treatment. If he remains stable consider discharge home tomorrow. Discussed with the patient along with the nurse at bedside regarding care plan. Problems(with codes): (1) CHF (congestive heart failure) (2) Sleep apnea (3) Hypertension (4) Diabetes mellitus (5) Leg edema (6) Morbid obesity Plan discussed with: Patient, Other KRUNAL LEWIS MD Aug 26, 2025 15:22
[2025-08-26] MEDS ORDERED: ACETYLCYSTEINE 20%(200MG/ML) SOL 4ML NEB SCH (18:00)
[2025-08-27] VITALS (12 sets, daily range): BP systolic 134–152; BP diastolic 89–114; PULSE 73–106; RESP 16–20; TEMP 36.7; O2SAT 96–100
[2025-08-27] MEDS: ACETYLCYSTEINE 20%(200MG/ML) SOL 4ML NEB SCH (02:25)
[2025-08-27 07:32] LABS: Anion Gap 12 (5-15); Carbon Dioxide 25 mmol/L (20-31); Chloride 100 mmol/L (98-107); Sodium 137 mmol/L (136-145)
[2025-08-27 07:34] LABS: Calcium 9.7 mg/dL (8.7-10.4)
[2025-08-27 07:38] LABS: BUN/Creatinine Ratio 19.2 (10.0-20.0)
[2025-08-27 07:39] LABS: Blood Urea Nitrogen 40 mg/dL (9-23); Glucose 141 mg/dL (74-106); Potassium 5.3 mmol/L (3.5-5.1)
--- NOTE | 2025-08-27 10:09 | DVHPN2 ---
Progress Note Date Seen: Aug 27, 2025 Medical Necessity Reason Pt with a Central, PICC or Fol: No Objective vital signs Vital Sign Date Time Temp Pulse Resp B/P (MAP) Pulse Ox O2 Delivery O2 Flow Rate FiO2 08/27/25 09:00 97.8 106 20 134/89 (104) 96 97.8 08/27/25 07:01 Facial BiPAP Mask 35 08/26/25 20:00 2 Total Intake and Output 08/26/25 08/26/25 08/27/25 15:00 23:00 07:00 Intake Total 500 ml 500 ml Output Total 300 ml 200 ml Balance 200 ml 300 ml medications Current Medications Medications Dose Ordered Sig/Donnie Route Start Time Stop Time Status Last Admin Dose Admin Nitroglycerin 0.4 mg Q5MINP PRN SL 08/24/25 22:00 Morphine Sulfate 2 mg Q30M PRN IV 08/24/25 22:00 08/24/25 23:51 2 MG Ondansetron HCl 4 mg Q6HPRN PRN IV 08/24/25 22:00 Atorvastatin Calcium 40 mg HS PO 08/24/25 22:00 08/26/25 21:40 40 MG Acetaminophen 650 mg Q6HPRN PRN PO 08/24/25 22:00 08/25/25 08:18 650 MG Ipratropium [place] 0.5 mg Q6HR NEB 08/25/25 00:00 08/27/25 07:01 0.5 MG Iron Sucrose 110 ml @ 110 mls/hr DAILY@1200 IV 08/25/25 12:00 08/29/25 11:59 08/26/25 12:24 110 MLS/HR Pantoprazole Sodium 40 mg BID@0600,1700 PO 08/25/25 17:00 08/27/25 05:31 40 MG Tamsulosin HCl 0.4 mg QPM PO 08/25/25 18:00 08/26/25 17:25 0.4 MG Morphine Sulfate 2 mg Q4HPRN PRN IV 08/25/25 12:00 08/27/25 02:46 2 MG Methylprednisolone Sodium Succinate 40 mg BID IV 08/25/25 12:04 08/26/25 21:40 40 MG Acetaminophen/ Hydrocodone Bitart 1 tab Q6HPRN PRN PO 08/25/25 12:15 Allopurinol 300 mg DAILY PO 08/26/25 10:00 08/26/25 10:34 300 MG Gabapentin 600 mg BID PRN PO 08/25/25 20:45 Docusate Sodium 100 mg BID PO 08/26/25 03:00 08/26/25 21:40 100 MG Acetylcysteine 200 mg Q6HR NEB 08/27/25 00:00 08/27/25 02:25 200 MG Examination: GENERAL:Normal, CVS:Normal laboratory and microbiology Laboratory Tests 08/27/25 06:15 08/26/25 06:50 Test 08/27/25 06:15 Range/Units Serum Glucose 141 H 74-106 mg/dL Microbiology Date/Time Source Procedure Growth Status 08/25/25 16:00 Nose MRSA Screen - Final Complete Problem List/Assessment/Plan Problem List/Assessment/Plan Acute kidney injury ckd II Systolic HF pervious ef 25% hyperkalemia gout CAD anemia resume diuretics new echo results given Jessi rec US kidney bladder hyperkalemia protocol gout allopurinol, add sodium bicarb avoid nsaids (indomethecin) cardiology Plan discussed with: Patient GALINDO GALLARDO MD Aug 27, 2025 10:09
[2025-08-27] MEDS: SODIUM ZIRCONIUM CYCL 10 GM PAK PO SCH (10:59)
[2025-08-27] MEDS: FUROSEMIDE 40 MG/4 ML VIAL IV SCH (11:01)
--- NOTE | 2025-08-27 11:53 | DVH ---
INDICATION: ila TECHNIQUE: Multiple real-time sonographic images of the kidneys and bladder were obtained. COMPARISON: None FINDINGS: The right kidney measures 11 cm in length, which is normal in size. There is normal echogenicity of the right kidney. No hydronephrosis. The left kidney measures 12 cm in length, which is normal in size. There is normal echogenicity of the left kidney. No hydronephrosis. No large intraluminal masses are seen in the bladder. Prior to voiding the bladder volume measures volume 201 cc. IMPRESSION: 1. Normal sonographic appearance of the kidneys. No hydronephrosis.
[2025-08-27] MEDS: DEXTROSE (50%) 50ML SYRG IV ONE (12:56)
[2025-08-27] MEDS: InsuLIN REG 1unit/0.01ml Soln (100units/ml) IV ONE (12:59)
[2025-08-27] MEDS ORDERED: PANT40T PO (14:52)
--- NOTE | 2025-08-27 14:53 | DVHDS2 ---
Discharge Summary Date of Admission Aug 24, 2025 at 21:53 Date of Discharge: Aug 27, 2025 Labs/Diagnostic Data: Laboratory Results Test 08/27/25 06:15 08/26/25 06:50 08/25/25 17:00 08/25/25 14:40 Sodium Level 137 mmol/L (136-145) Potassium Level 5.3 mmol/L (3.5-5.1) Chloride Level 100 mmol/L (98-107) Carbon Dioxide Level 25 mmol/L (20-31) Anion Gap 12 (5-15) Blood Urea Nitrogen 40 mg/dL (9-23) Creatinine 2.08 mg/dL (0.700-1.30) Glomerular Filtration Rate Calc 34 mL/min (>90) BUN/Creatinine Ratio 19.2 (10.0-20.0) Serum Glucose 141 mg/dL (74-106) Calcium Level 9.7 mg/dL (8.7-10.4) White Blood Count 6.9 10^3/uL (4.4-10.8) Red Blood Count 2.66 10^6/uL (4.5-5.90) Hemoglobin 8.0 g/dL (13.5-17.5) Hematocrit 24.2 % (41.0-53.0) Mean Corpuscular Volume 91.0 fL (80.0-100.0) Mean Corpuscular Hemoglobin 30.0 pg (28.0-32.0) Mean Corpuscular Hemoglobin Concent 32.9 g/dL (32.0-36.0) Red Cell Distribution Width 15.4 % (11.8-14.3) Platelet Count 267 10^3/uL (140-450) Mean Platelet Volume 9.3 fL (6.9-10.8) Neutrophils (%) (Auto) 79.6 % (37.0-80.0) Lymphocytes (%) (Auto) 13.2 % (10.0-50.0) Monocytes (%) (Auto) 7.1 % (0.0-12.0) Eosinophils (%) (Auto) 0.1 % (0.0-7.0) Basophils (%) (Auto) 0.0 % (0.0-2.0) Neutrophils # (Auto) 5.5 10 ^3/uL (1.6-8.6) Lymphocytes # (Auto) 0.9 10 ^3/uL (0.4-5.4) Monocytes # (Auto) 0.5 10 ^3/uL (0-1.3) Eosinophils # (Auto) 0 10 ^3/uL (0-0.8) Basophils # (Auto) 0 10 ^3/uL (0-0.2) Nucleated Red Blood Cells 0.8 % Urine Color Yellow (Yellow) Urine Clarity Clear (Clear) Urine pH 5.0 (5.0-9.0) Urine Specific [place] 1.019 (1.001-1.035) Urine Protein Negative (Negative) Urine Ketones Negative (Negative) Urine Blood Negative /uL (Negative) Urine Nitrite Negative (Negative) Urine Bilirubin Negative (Negative) Urine Urobilinogen Normal mg/dL (Negative) Urine Leukocyte Esterase Trace /uL (Negative) Urine RBC 2 /hpf (0 - 3) Urine Microscopic WBC 4 /HPF (0-3) Urine Squamous Epithelial Cells Few /hpf (<5) Urine Bacteria None seen /hpf (None Seen) Urine Glucose Normal mg/dL (Normal) Troponin I High Sensitivity 26 ng/L (</=54) Test 08/25/25 05:12 08/25/25 00:35 08/25/25 00:33 08/25/25 00:16 D-Dimer, Quantitative 1.12 mg/L FEU (0.0-0.49) Uric Acid 5.9 mg/dL (3.7-9.2) Iron Level 68 ug/dL (65-175) Total Iron Binding Capacity 291 ug/dL (250-425) Percent Iron Saturation 23.4 % (20-55) Urine Creatinine 61.57 mg/dL (30.0-125.0) Urine Sodium 70 mmol/L (40-220) Influenza Type A Antigen Negative (Negative) Influenza Type B Antigen Negative (Negative) SARS-CoV-2 Antigen (Rapid) Negative (NEGATIVE) Test 08/24/25 22:00 08/24/25 16:23 B-Type Natriuretic Peptide 873.03 pg/mL (0-100) Lactic Acid Level 1.2 mmol/L (0.4-2.0) Magnesium Level 1.7 mg/dL (1.6-2.6) Total Bilirubin 0.4 mg/dL (0.2-1.0) Aspartate Amino Transferase (AST) 16 U/L (13-40) Alanine Aminotransferase (ALT) 26 U/L (7-40) Alkaline Phosphatase 80 U/L (46-116) Total Protein 7.8 g/dL (5.7-8.2) Albumin 3.8 g/dL (3.2-4.8) Other Laboratory Tests 08/27/25 06:15 08/26/25 06:50 Brief Hx & Hospital Course: Mr. David Layton is a 65-year-old male with past medical history of CAD s/p PCI KARMEN x3, COPD on home O2 2 L, congestive heart failure, diabetes, gout, dyslipidemia, hypertension, atrial fibrillation who presents with a chief complaint of chest pain. According to the patient, in July he was found unresponsive in his truck and was taken to a hospital in [place] ([facility]) where he was treated for heart failure exacerbation and pneumonia, since being discharged from the hospital on 08/11/2025 he has been experiencing chest pain which he localizes to the midsternum, 10/10 in intensity, cramping in nature, worsened by lying on ipsilateral side and relieved by nitroglycerin. Associated with shortness of breaths. Notes having similar pain in the past when he was diagnosed to have myocardial infarction. Patient reports midsternal chest pain radiating to left lower rib cage and right lower rib cage area. Patient reports he was recently started on supplemental oxygen when he was discharged from [facility] in [place]. Patient denies headaches, dizziness, fevers, abdominal pain, melena, hematochezia. He is admitted and underwent counseling education on multiple times by me regarding his poor ejection fraction with a heart failure. He is also educated regarding avoiding NSAIDs given his anemia with a possible NSAID induced gastropathy. He received IV diuretics and Nephrology conditions in the hospital. He also received IV iron for anemia. Patient did not have any evidence of acute blood loss anemia in the hospital. Patient is advised to continue his proton pump inhibitor as prescribed. He is to follow up with the PCP and have referral to arbitrator for elective EGD and colonoscopy for further evaluation of his anemia. Otherwise while in the hospital patient advised to limit his oral fluid restriction to 1200 mL per 24 hours even at home given his heart failure with the swelling and shortness for breath. Patient is advised to continue his diuretics and other medications per his discharge med reconciliation list. Patient had multiple combination of medications including multiple anticoagulants/antiplatelets as well as multiple diuretics. Therefore I have talked with the patient and advised him to follow the discharge med reconciliation list and to stop medications that are listed on it and only to continue other medications that mentioned as to continue. Otherwise while in the hospital patient's symptoms resolved. He is oxygenating better. His leg swelling has improved. Hemoglobin is stable. He is feeling better therefore it is felt he could be safely discharged home. Patient has verbalized understanding his hospital diagnosis, discharge medications, discharge instructions and agree with the discharge follow-up plan of care as outlined. Consults/Reason for consult Problem List/Assessment/Plan Acute kidney injury ckd II Systolic HF pervious ef 25% hyperkalemia gout CAD anemia resume diuretics new echo results given Jessi rec US kidney bladder hyperkalemia protocol gout allopurinol, add sodium bicarb avoid nsaids (indomethecin) cardiology Plan discussed with: Patient GALINDO GALLARDO MD Aug 27, 2025 10:09 Condition at Discharge: Stable Final Diagnosis/Problems List Acute on chronic congestive heart failure with a diastolic dysfunction, chronic kidney disease stage 3, possible acute on chronic anemia Discharge Disposition: Home Discharge Instruct/Medications Diet: Consistent carbohydrate, Cardiac 2g Na,low cholest Activity: No Restrictions, As Tolerated Follow Up/Referral: Primary care physician next week and referral to arbitrator for EGD and colonoscopy due to anemia workup. Continue Bumex potassium and other home medications as per discharge med reconciliation list. Stop aspirin and Plavix given you are already taking Eliquis blood thinner. Medications: To continue Medications as per discharge med reconciliation list and stop taking other medications as mentioned. Scheduled Acetaminophen W/ Codeine (Tylenol W/Cod #3), 1 TAB PO QIDPRN Allopurinol (Zyloprim Tablet), 300 MG PO DAILY, (Reported) Amiodarone Hcl (Amiodarone Hcl), 200 MG PO BID, (Reported) Apixaban Base (Eliquis), 5 MG PO BID, (Reported) Aspirin (Aspirin Low Strength), 81 MG PO DAILY Aspirin (Aspirin 81), 81 MG PO DAILY Atorvastatin Calcium (Atorvastatin Calcium), 40 MG PO HS Atorvastatin Calcium (Lipitor), 1 TAB PO QPM Bumetanide (Bumetanide), 1 TAB PO BID Bumetanide (Bumetanide), 1 TAB PO DAILY Clopidogrel Bisulfate (Plavix), 1 TAB PO DAILY Docusate Sodium (Colace), 1 CAP PO BID Doxycycline (Monohydrate) (Doxycycline), 100 MG PO BID Furosemide (Lasix), 40 MG PO DAILY Indomethacin (Indomethacin), 1 CAP PO TID Lisinopril (Lisinopril), 1 TAB PO DAILY Methylprednisolone (Medrol Dosepak), 4 MG PO UD Metolazone (Metolazone), 2.5 MG PO DAILY Pantoprazole Sodium (Pantoprazole Sodium), 40 MG PO DAILY, (Reported) Pantoprazole Sodium Sesquihydr (Pantoprazole Sodium), 40 MG PO BID Potassium Chloride (Potassium Chloride Cr), 10 MEQ PO BID Prednisone (Prednisone), 50 MG PO DAILY, (Reported) Tamsulosin Hcl (Tamsulosin Hcl), 0.4 MG PO HS, (Reported) Torsemide (Torsemide), 20 MG PO DAILY Scheduled PRN Gabapentin (Gabapentin), 600 MG PO BID PRN for MILD PAIN (1-3 PAIN SCALE), (Reported) Gabapentin (Gabapentin), 600 MG PO for BREAKTHROUGH PAIN, (Reported) Hydrocodone-Acetaminophen (Hydrocodone Bitartrate/AC 5-325 mg), 1 TAB PO Q6HP PRN Discharge Statement: "Patient was advised to return to the ER or call 911 if any headaches, dizziness, shortness of breath, chest pain, abdominal pain, bleeding, fevers, or worsening of medical condition. Patient was counseled about treatment plan, medications, possible side effects, patientverbalized understanding. All questions were answered to the best of my ability. This discharge took greater then 30 minutes in planning, reviewing documentation, counseling the patient, and discussing with other team members." ASSESSMENT ASSESSMENT Assessment Acute on chronic congestive heart failure with a diastolic dysfunction, chronic kidney disease stage 3, possible acute on chronic anemia KRUNAL LEWIS MD Aug 27, 2025 14:52
== END 2025-08-27 18:25 | disposition home or self-care (01) | DRG 177 ==
LOC: EDUNIT# 15:24 → ER 15:24 → EDBD 15:24 → OVERFLOW 21:53 → TELE-WESTW 23:53
PROVIDERS: ADMIT Nurse Practitioner Family; ATTEND Nurse Practitioner Family
PROC: 5A09357 Assistance with Respiratory Ventilation, Less than 24 Consecutive Hours, Continuous Positive Airway Pressure (ICD-10-PCS; principal; 2025-08-25)
PROC: 5A09357 Assistance with Respiratory Ventilation, Less than 24 Consecutive Hours, Continuous Positive Airway Pressure (ICD-10-PCS; 2025-08-26)
PROC: 5A09357 Assistance with Respiratory Ventilation, Less than 24 Consecutive Hours, Continuous Positive Airway Pressure (ICD-10-PCS; 2025-08-27)
DX: J15.69 Pneumonia due to other Gram-negative bacteria (principal); I50.43 Acute on chronic combined systolic (congestive) and diastolic (congestive) heart failure; N17.0 Acute kidney failure with tubular necrosis; I13.0 Hypertensive heart and chronic kidney disease with heart failure and stage 1 through stage 4 chronic kidney disease, or unspecified chronic kidney disease; J44.0 Chronic obstructive pulmonary disease with (acute) lower respiratory infection; Z99.81 Dependence on supplemental oxygen; D64.9 Anemia, unspecified; E11.22 Type 2 diabetes mellitus with diabetic chronic kidney disease; E66.813 Obesity, class 3; J15.9 Unspecified bacterial pneumonia; N18.30 Chronic kidney disease, stage 3 unspecified; J44.1 Chronic obstructive pulmonary disease with (acute) exacerbation; Z68.41 Body mass index [BMI] 40.0-44.9, adult; I48.91 Unspecified atrial fibrillation; Z20.822 Contact with and (suspected) exposure to COVID-19; E78.5 Hyperlipidemia, unspecified; F17.210 Nicotine dependence, cigarettes, uncomplicated; E87.5 Hyperkalemia; M10.9 Gout, unspecified; I25.10 Atherosclerotic heart disease of native coronary artery without angina pectoris; Z95.5 Presence of coronary angioplasty implant and graft; I25.2 Old myocardial infarction; Z79.82 Long term (current) use of aspirin; Z79.899 Other long term (current) drug therapy; Z82.3 Family history of stroke; Z82.49 Family history of ischemic heart disease and other diseases of the circulatory system; Z83.3 Family history of diabetes mellitus; Z79.84 Long term (current) use of oral hypoglycemic drugs
CPT/HCPCS: 36415; 71045; 76775; 80048; 80053; 81001; 82570; 83540; 83550; 83605; 83735; 83880; 84300; 84484; 84550; 85014; 85018; 85025; 85379; 87081; 87426; 87804; 93005; 93306; 94640; 94660; 96374; 96375; 99291; G0378; J1756; J1815; J1885; J2470